=== PATIENT | male | born 1975 | race American Indian/Alaskan Native ===

== ENCOUNTER 2021-07-22 18:29 | Inpatient (IN) | payer SELFPAY ==
[~2021-07-22 18:29] MED LIST: ROCURONIUM 50 MG/5 ML INJ IV ONE
[2021-07-22] MEDS ORDERED: levETIRAcetam 1000 MG/NS 0.75% 1,000 MG/100 ML BAG IV ONE ×3 (18:31→18:48)
[2021-07-22] MEDS ORDERED: ROCURONIUM 50 MG/5 ML INJ IV ONE ×3 (18:42→22:00)
[2021-07-22] MEDS ORDERED: MINERAL OIL/PETROLATUM, WHITE OPHTH OINT 3.5 GM OU PRN (18:46)
[2021-07-22] MEDS ORDERED: fentaNYL 100 MCG/2 ML INJ IV PRN (18:46)
[2021-07-22] MEDS ORDERED: LIP THERAPY VASELINE TP PRN (18:46)
[2021-07-22] MEDS ORDERED: ETOMIDATE 20 MG/10 ML INJ IV ONE (18:46)
[2021-07-22] MEDS ORDERED: LACTATED RINGERS 2,000 ML IV ONE ×2 (18:48→21:30)
--- NOTE | 2021-07-22 18:51 | Emergency Department Report ---
ED General Adult HPI - General Chief complaint: Altered Mental Status Stated complaint: mental status Source: family, EMS (Verbal report received from emergency medical services. EMS documentation not available at time of chart dictation ), RN notes reviewed Mode of arrival: Stretcher Limitations: Altered Mental Status - History of Present Illness Initial comments: The patient is a 46-year-old gentleman. He is not known to myself previously. He is brought to the hospital by emergency medical services. History obtained from EMS verbal report as the patient is altered. EMS reports that they received a phone call for a patient who may have had a seizure. They report th at they found the patient at home on the floor. He had had a convulsive event as per EMS. He does not know how long it lasted for. EMS states that family called 911. EMS states that in the ambulance, the patient had improvement in mental status, was alert and oriented x1, and following commands. They then report that the patient had another seizure or convulsive event, which lasted for a few seconds to possibly a minute, and then resolved. The patient was breathing spontaneously, and given 4 mg of Ativan by EMS in the field. EMS reports another convulsive events in the field, which they believe resolved spontaneously. EMS also reports that the patient had an episode of SVT in the field, which was terminated with 6 mg of adenosine. They also report that the patient's Accu-Chek was "really high." Upon arrival to this emergency room, the patient is altered, breathing sonorously, with eyes looking to the left, and is tachycardic, tachypneic and hypertensive. Given report of multiple seizures without adventist of normal mental status, labored breathing, and copious secretions noted in the oropharynx, decision made to intubate patient. Prior to induction and paralysis, patient got up, try to take off leads and IVs, obviously delirious, agitated, and not exhibiting decision-making capacity. He is moving 4 extremities vigorously prior to paralysis and induction patient intubated with 20 mg of etomidate, and cumulative dose 200 mg rocuronium. Also loaded with 1 g of Keppra as benzodiazepines not available. After intubation, code stroke was called overhead. An emergent noncontrast CT scan of the brain is obtained, and CT angiogram head and neck are obtained, w hich demonstrate no bleed, no large vessel occlusion The bony cervical spine is interpreted as having no acute findings, as per radiologist, Dr. Moody. Contacted neurology on-call, Dr. Jeff Westbrook Discussed history, physical, hyperglycemia, clinical impression, and overall plan of care. The patient is not a TPA candidate as his last known well time is not explicitly known. Given that he was thrashing and moving 4 extremities without convulsive event prior to intubation and paralysis, this is less likely to be a seizure and status epilepticus. This is much more likely to be a toxic metabolic encephalopathy. Laboratory studies demonstrate leukocytosis, uncertain of stress reaction, or infectious pathology. He is also found to have evidence of hyperglycemia, anion gap acidosis, diabetic ketoacidosis, and transaminitis. Contacted nephrology on-call, Dr. Moran. Discussed history, physical, laboratory studies and clinical impression. He will follow in consultation. Advises that emergent hemodialysis is not indicated. Contacted critical care physician on-call, Dr. Susannah Jaeger Discussed history, physical, laboratory studies and imaging studies and overall plan of care. Critical care will follow in consultation. Family arrived to the bedside shortly thereafter. They state the patient drinks alcohol every day, and does not see primary care doctors. He also smokes cigarettes, and occasionally marijuana. Family does not note the patient has any chronic medical conditions. Patient himself is not able to describe qualitative nature of symptoms, exacerbating factors relieving factors or aggravating factors - Related Data Allergies Allergy/AdvReac Type Severity Reaction Status Date / Time No Known Allergies Allergy Unverified 07/22/21 21:01 ED Review of Systems ROS: Stated complaint: SEIZURE Other details as noted in HPI Comment: Unobtainable due to pts medical conditions ED Physical Exam - General Limitations: Altered Mental Status, Physical Limitation General appearance: obtunded - Head Head exam: Present: atraumatic, normocephalic - Eye Eye exam: Present: normal appearance, PERRL - ENT ENT exam: Present: normal exam, mucous membranes moist, normal external ear exam, other (Copious secretions noted in the oropharynx) - Neck Neck exam: Present: normal inspection, full ROM. Absent: tenderness - Respiratory Respiratory exam: Present: respiratory distress, rhonchi - Cardiovascular Cardiovascular Exam: Present: normal rhythm, tachycardia, normal heart sounds. Absent: bradycardia, irregular rhythm, systolic murmur, diastolic murmur, rubs, gallop - GI/Abdominal GI/Abdominal exam: Present: soft. Absent: tenderness, guarding, rebound, rigid, pulsatile mass - Rectal Rectal exam: Present: normal inspection, heme (-) stool - exam: Present: normal inspection External exam: Present: normal external exam - Extremities Exam Extremities exam: Present: normal inspection, full ROM, other (2+ pulses noted in the bilateral upper and lower extremities. There is no palpable cord. negative Homans sign. Muscular compartments are soft. The pelvis is stable.). Absent: pedal edema, calf tenderness - Back Exam Back exam: Present: normal inspection. Absent: tenderness, CVA tenderness (R), CVA tenderness (L), paraspinal tenderness, vertebral tenderness - Neurological Exam Neurological exam: Present: altered, other (Prior to intubation, there is no facial droop, eyes looking to the left, and patient moving 4 extremities vigorously) - Skin Skin exam: Present: warm, dry, intact, normal color. Absent: rash ED Course Vital Signs 07/22/21 07/22/21 07/22/21 18:47 19:00 19:06 Temperature 99.0 F Pulse Rate 152 H 154 H 151 H Respiratory 14 20 Rate Blood Pressure 140/90 Blood Pressure 140/86 140/90 [Left] O2 Sat by Pulse 88 100 100 Oximetry 07/22/21 07/22/21 07/22/21 19:15 19:20 19:55 Temperature Pulse Rate 149 H 148 H 138 H Respiratory 20 20 20 Rate Blood Pressure 140/90 Blood Pressure 123/73 [Left] O2 Sat by Pulse 97 100 100 Oximetry 07/22/21 07/22/21 07/22/21 20:00 20:01 20:15 Temperature Pulse Rate 140 H 141 H 137 H Respiratory 20 20 20 Rate Blood Pressure 163/110 153/99 Blood Pressure 163/110 153/99 [Left] O2 Sat by Pulse 100 100 100 Oximetry 07/22/21 07/22/21 07/22/21 20:30 20:31 20:47 Temperature Pulse Rate 134 H 134 H 132 H Respiratory 20 20 Rate Blood Pressure 153/99 153/99 Blood Pressure 144/108 [Left] O2 Sat by Pulse 99 100 Oximetry 07/22/21 07/22/21 07/22/21 21:01 21:15 21:31 Temperature Pulse Rate 152 H 137 H Respiratory 20 19 Rate Blood Pressure 211/149 160/115 Blood Pressure [Left] O2 Sat by Pulse 100 100 100 Oximetry 07/22/21 07/22/21 07/22/21 21:45 22:01 22:15 Temperature Pulse Rate 150 H 137 H 127 H Respiratory 24 22 27 H Rate Blood Pressure 197/147 200/128 123/77 Blood Pressure [Left] O2 Sat by Pulse 97 98 98 Oximetry 07/22/21 07/22/21 07/22/21 22:31 22:45 23:01 Temperature Pulse Rate 117 H 113 H 111 H Respiratory 26 H 26 H 26 H Rate Blood Pressure 109/75 115/74 122/87 Blood Pressure [Left] O2 Sat by Pulse 99 98 99 Oximetry 07/22/21 23:05 Temperature Pulse Rate 116 H Respiratory Rate Blood Pressure 109/75 Blood Pressure [Left] O2 Sat by Pulse 99 Oximetry - Reevaluation(s) Reevaluation #1: 07/23/21 00:01 Patient markedly improved on propofol, 50 mcg/kg/min. He is also on fentanyl, as well as insulin drip. Has put out approximately 2.5 L of clear yellow urine. Lactic acidosis is a probable type II lactic acidosis, likely secondary to alcoholism, seizure, and stress from diabetic ketoacidosis. Blood pressure now 125/70. Heart rate 99 bpm. - Consultations Consultation #1: 07/22/21 21:16 Dr Westbrook neurology; see note Consultation #2: 07/22/21 21:16 Dr Moran, see note Consultation #3: 07/22/21 21:16 Dr Jaeger, see note - Intubation Time Out Performed: No (Emergency situation) Sedative: Etomidate Mg Given: 20 Paralytic: Rocuronium Mg Given: 200 Laryngoscope: fiberoptic video scope Size: 3 Assist Device Used: LMA ET Tube Size: 7.5 Tube Secured Depth (cm): 23 Tube Secured Location: teeth Tube Placement Confirmation: visualized tube passing t, equal breath sounds bilat, no breath sounds over epi, confirmation by capnometr Patient Tolerated Procedure: well Intubation Complications: none ED Medical Decision Making - Lab Data Result diagrams: 07/22/21 19:18 07/22/21 22:46 Vital Signs 07/22/21 07/22/21 07/22/21 18:47 19:06 19:20 Temperature 99.0 F Pulse Rate 152 H 151 H 150 H Respiratory 14 Rate Blood Pressure 140/90 140/90 Blood Pressure 140/86 [Left] O2 Sat by Pulse 88 100 100 Oximetry 07/22/21 07/22/21 19:55 20:01 Temperature Pulse Rate 138 H 141 H Respiratory 20 20 Rate Blood Pressure 163/110 Blood Pressure [Left] O2 Sat by Pulse 100 100 Oximetry Lab Results 07/22/21 07/22/21 07/22/21 Range/Units 19:18 19:18 19:18 WBC 17.7 H (4.5-11.0) K/mm3 RBC 3.91 (3.65-5.03) M/mm3 Hgb 13.4 (11.8-15.2) gm/dl Hct 45.0 (35.5-45.6) % MCV 115 H (84-94) fl MCH 34 H (28-32) pg MCHC 30 L (32-34) % RDW 15.2 (13.2-15.2) % Plt Count 329 (140-440) K/mm3 Lake % (Auto) 5.6 (0.0-7.3) % Baso # (Auto) 0.2 H (0.0-0.1) K/mm3 Add Manual Diff Complete Total Counted 100 Seg Neutrophils % 78.4 H (40.0-70.0) % Seg Neuts % (Manual) 75.0 H (40.0-70.0) % Band Neutrophils % 4.0 % Lymphocytes % (Manual) 17.0 (13.4-35.0) % Monocytes % (Manual) 3.0 (0.0-7.3) % Eosinophils % (Manual) 1.0 (0.0-4.3) % Nucleated RBC % Not Reportable Seg Neutrophils # Man 13.3 H (1.8-7.7) K/mm3 Band Neutrophils # 0.7 K/mm3 Lymphocytes # (Manual) 3.0 (1.2-5.4) K/mm3 Abs React Lymphs (Man) 0.0 K/mm3 Monocytes # (Manual) 0.5 (0.0-0.8) K/mm3 Eosinophils # (Manual) 0.2 (0.0-0.4) K/mm3 Basophils # (Manual) 0.0 (0.0-0.1) K/mm3 Metamyelocytes # 0.0 K/mm3 Myelocytes # 0.0 K/mm3 Promyelocytes # 0.0 K/mm3 Blast Cells # 0.0 K/mm3 WBC Morphology Not Reportable Hypersegmented Neuts Not Reportable Hyposegmented Neuts Not Reportable Hypogranular Neuts Not Reportable Smudge Cells Not Reportable Toxic Granulation Not Reportable Toxic Vacuolation Not Reportable Dohle Bodies Not Reportable Pelger-Huet Anomaly Not Reportable Jacek Rods Not Reportable Platelet Estimate Consistent w auto Clumped Platelets Not Reportable Plt Clumps, EDTA Not Reportable Large Platelets Not Reportable Giant Platelets Not Reportable Platelet Satelliting Not Reportable Plt Morphology Comment Not Reportable RBC Morphology Not Reportable Dimorphic RBCs Not Reportable Polychromasia Not Reportable Hypochromasia Not Reportable Poikilocytosis Not Reportable Anisocytosis 1+ Microcytosis Not Reportable Macrocytosis 1+ Spherocytes Not Reportable Pappenheimer Bodies Not Reportable Sickle Cells Not Reportable Target Cells Not Reportable Tear Drop Cells Not Reportable Ovalocytes Not Reportable Helmet Cells Not Reportable [place] Bodies Not Reportable Geff Rings Not Reportable [place]andy Cells Not Reportable Bite Cells Not Reportable Crenated Cell Not Reportable Elliptocytes Not Reportable Acanthocytes (Spur) Not Reportable Rouleaux Not Reportable Hemoglobin C Crystals Not Reportable Schistocytes Not Reportable Malaria parasites Not Reportable Dieudonne Bodies Not Reportable Hem Pathologist Commnt No PT 17.4 H (12.2-14.9) Sec. INR 1.29 H (0.87-1.13) APTT 28.3 (24.2-36.6) Sec. Thrombin Time 18.0 (15.1-19.6) Sec. VBG pH (7.320-7.420) Sodium 137 (137-145) mmol/L Potassium 5.6 H (3.6-5.0) mmol/L Chloride 84.9 L (98-107) mmol/L Carbon Dioxide 6 L* (22-30) mmol/L Anion Gap 52 mmol/L BUN 19 (9-20) mg/dL Creatinine 1.9 H (0.8-1.3) mg/dL Estimated GFR 38 ml/min BUN/Creatinine Ratio 10 % Glucose 941 H* (75-100) mg/dL POC Glucose (70-105) mg/dL Calcium 11.6 H (8.4-10.2) mg/dL Total Bilirubin 0.60 (0.1-1.2) mg/dL AST 270 H (5-40) units/L ALT 107 H (7-56) units/L Alkaline Phosphatase 334 H (35-129) units/L Total Creatine Kinase 166 (55-170) units/L CK-MB (CK-2) 3.2 (0.0-4.0) ng/mL CK-MB (CK-2) Rel Index 1.9 (0-4) Troponin T < 0.010 (0.00-0.029) ng/mL Total Protein 10.0 H (6.3-8.2) g/dL Albumin 4.7 (3.9-5) g/dL Albumin/Globulin Ratio 0.9 % Urine Bilirubin (Negative) Urine RBC (Auto) (0.0-6.0) /HPF Salicylates (2.8-20.0) mg/dL Urine Opiates Screen Urine Methadone Screen Acetaminophen (10.0-30.0) ug/mL Ur Barbiturates Screen Ur Phencyclidine Scrn Ur Amphetamines Screen U Benzodiazepines Scrn Urine Cocaine Screen U Marijuana (THC) Screen Drugs of Abuse Note Plasma/Serum Alcohol (0-0.07) % 07/22/21 07/22/21 07/22/21 Range/Units 19:18 19:18 19:18 WBC (4.5-11.0) K/mm3 RBC (3.65-5.03) M/mm3 Hgb (11.8-15.2) gm/dl Hct (35.5-45.6) % MCV (84-94) fl MCH (28-32) pg MCHC (32-34) % RDW (13.2-15.2) % Plt Count (140-440) K/mm3 [place] % (Auto) (0.0-7.3) % Baso # (Auto) (0.0-0.1) K/mm3 Add Manual Diff Total Counted Seg Neutrophils % (40.0-70.0) % Seg Neuts % (Manual) (40.0-70.0) % Band Neutrophils % % Lymphocytes % (Manual) (13.4-35.0) % Monocytes % (Manual) (0.0-7.3) % Eosinophils % (Manual) (0.0-4.3) % Nucleated RBC % Seg Neutrophils # Man (1.8-7.7) K/mm3 Band Neutrophils # K/mm3 Lymphocytes # (Manual) (1.2-5.4) K/mm3 Abs React Lymphs (Man) K/mm3 Monocytes # (Manual) (0.0-0.8) K/mm3 Eosinophils # (Manual) (0.0-0.4) K/mm3 Basophils # (Manual) (0.0-0.1) K/mm3 Metamyelocytes # K/mm3 Myelocytes # K/mm3 Promyelocytes # K/mm3 Blast Cells # K/mm3 WBC Morphology Hypersegmented Neuts Hyposegmented Neuts Hypogranular Neuts Smudge Cells Toxic Granulation Toxic Vacuolation Dohle Bodies Pelger-Huet Anomaly Jacek Rods Platelet Estimate Clumped Platelets Plt Clumps, EDTA Large Platelets Giant Platelets Platelet Satelliting Plt Morphology Comment RBC Morphology Dimorphic RBCs Polychromasia Hypochromasia Poikilocytosis Anisocytosis Microcytosis Macrocytosis Spherocytes Pappenheimer Bodies Sickle Cells Target Cells Tear Drop Cells Ovalocytes Helmet Cells [place] Bodies Geff Rings Yoandy Cells Bite Cells Crenated Cell Elliptocytes Acanthocytes (Spur) Rouleaux Hemoglobin C Crystals Schistocytes Malaria parasites Dieudonne Bodies Hem Pathologist Commnt PT (12.2-14.9) Sec. INR (0.87-1.13) APTT (24.2-36.6) Sec. Thrombin Time (15.1-19.6) Sec. VBG pH (7.320-7.420) Sodium (137-145) mmol/L Potassium (3.6-5.0) mmol/L Chloride (98-107) mmol/L Carbon Dioxide (22-30) mmol/L Anion Gap mmol/L BUN (9-20) mg/dL Creatinine (0.8-1.3) mg/dL Estimated GFR ml/min BUN/Creatinine Ratio % Glucose (75-100) mg/dL POC Glucose (70-105) mg/dL Calcium (8.4-10.2) mg/dL Total Bilirubin (0.1-1.2) mg/dL AST (5-40) units/L ALT (7-56) units/L Alkaline Phosphatase (35-129) units/L Total Creatine Kinase (55-170) units/L CK-MB (CK-2) (0.0-4.0) ng/mL CK-MB (CK-2) Rel Index (0-4) Troponin T (0.00-0.029) ng/mL Total Protein (6.3-8.2) g/dL Albumin (3.9-5) g/dL Albumin/Globulin Ratio % Urine Bilirubin (Negative) Urine RBC (Auto) (0.0-6.0) /HPF Salicylates 0.6 L (2.8-20.0) mg/dL Urine Opiates Screen Urine Methadone Screen Acetaminophen 5.0 L (10.0-30.0) ug/mL Ur Barbiturates Screen Ur Phencyclidine Scrn Ur Amphetamines Screen U Benzodiazepines Scrn Urine Cocaine Screen U Marijuana (THC) Screen Drugs of Abuse Note Plasma/Serum Alcohol < 0.01 (0-0.07) % 07/22/21 07/22/21 07/22/21 Range/Units 19:18 20:01 20:01 WBC (4.5-11.0) K/mm3 RBC (3.65-5.03) M/mm3 Hgb (11.8-15.2) gm/dl Hct (35.5-45.6) % MCV (84-94) fl MCH (28-32) pg MCHC (32-34) % RDW (13.2-15.2) % Plt Count (140-440) K/mm3 [place] % (Auto) (0.0-7.3) % Baso # (Auto) (0.0-0.1) K/mm3 Add Manual Diff Total Counted Seg Neutrophils % (40.0-70.0) % Seg Neuts % (Manual) (40.0-70.0) % Band Neutrophils % % Lymphocytes % (Manual) (13.4-35.0) % Monocytes % (Manual) (0.0-7.3) % Eosinophils % (Manual) (0.0-4.3) % Nucleated RBC % Seg Neutrophils # Man (1.8-7.7) K/mm3 Band Neutrophils # K/mm3 Lymphocytes # (Manual) (1.2-5.4) K/mm3 Abs React Lymphs (Man) K/mm3 Monocytes # (Manual) (0.0-0.8) K/mm3 Eosinophils # (Manual) (0.0-0.4) K/mm3 Basophils # (Manual) (0.0-0.1) K/mm3 Metamyelocytes # K/mm3 Myelocytes # K/mm3 Promyelocytes # K/mm3 Blast Cells # K/mm3 WBC Morphology Hypersegmented Neuts Hyposegmented Neuts Hypogranular Neuts Smudge Cells Toxic Granulation Toxic Vacuolation Dohle Bodies Pelger-Huet Anomaly Jacek Rods Platelet Estimate Clumped Platelets Plt Clumps, EDTA Large Platelets Giant Platelets Platelet Satelliting Plt Morphology Comment RBC Morphology Dimorphic RBCs Polychromasia Hypochromasia Poikilocytosis Anisocytosis Microcytosis Macrocytosis Spherocytes Pappenheimer Bodies Sickle Cells Target Cells Tear Drop Cells Ovalocytes Helmet Cells [place] Bodies Geff Rings Yoandy Cells Bite Cells Crenated Cell Elliptocytes Acanthocytes (Spur) Rouleaux Hemoglobin C Crystals Schistocytes Malaria parasites Dieudonne Bodies Hem Pathologist Commnt PT (12.2-14.9) Sec. INR (0.87-1.13) APTT (24.2-36.6) Sec. Thrombin Time (15.1-19.6) Sec. VBG pH 7.030 L* (7.320-7.420) Sodium (137-145) mmol/L Potassium (3.6-5.0) mmol/L Chloride (98-107) mmol/L Carbon Dioxide (22-30) mmol/L Anion Gap mmol/L BUN (9-20) mg/dL Creatinine (0.8-1.3) mg/dL Estimated GFR ml/min BUN/Creatinine Ratio % Glucose (75-100) mg/dL POC Glucose (70-105) mg/dL Calcium (8.4-10.2) mg/dL Total Bilirubin (0.1-1.2) mg/dL AST (5-40) units/L ALT (7-56) units/L Alkaline Phosphatase (35-129) units/L Total Creatine Kinase (55-170) units/L CK-MB (CK-2) (0.0-4.0) ng/mL CK-MB (CK-2) Rel Index (0-4) Troponin T (0.00-0.029) ng/mL Total Protein (6.3-8.2) g/dL Albumin (3.9-5) g/dL Albumin/Globulin Ratio % Urine Bilirubin Neg (Negative) Urine RBC (Auto) 1.0 (0.0-6.0) /HPF Salicylates (2.8-20.0) mg/dL Urine Opiates Screen Negative Urine Methadone Screen Negative Acetaminophen (10.0-30.0) ug/mL Ur Barbiturates Screen Negative Ur Phencyclidine Scrn Negative Ur Amphetamines Screen Negative U Benzodiazepines Scrn Negative Urine Cocaine Screen Negative U Marijuana (THC) Screen Negative Drugs of Abuse Note Disclamer Plasma/Serum Alcohol (0-0.07) % 07/22/21 Range/Units 20:29 WBC (4.5-11.0) K/mm3 RBC (3.65-5.03) M/mm3 Hgb (11.8-15.2) gm/dl Hct (35.5-45.6) % MCV (84-94) fl MCH (28-32) pg MCHC (32-34) % RDW (13.2-15.2) % Plt Count (140-440) K/mm3 [place] % (Auto) (0.0-7.3) % Baso # (Auto) (0.0-0.1) K/mm3 Add Manual Diff Total Counted Seg Neutrophils % (40.0-70.0) % Seg Neuts % (Manual) (40.0-70.0) % Band Neutrophils % % Lymphocytes % (Manual) (13.4-35.0) % Monocytes % (Manual) (0.0-7.3) % Eosinophils % (Manual) (0.0-4.3) % Nucleated RBC % Seg Neutrophils # Man (1.8-7.7) K/mm3 Band Neutrophils # K/mm3 Lymphocytes # (Manual) (1.2-5.4) K/mm3 Abs React Lymphs (Man) K/mm3 Monocytes # (Manual) (0.0-0.8) K/mm3 Eosinophils # (Manual) (0.0-0.4) K/mm3 Basophils # (Manual) (0.0-0.1) K/mm3 Metamyelocytes # K/mm3 Myelocytes # K/mm3 Promyelocytes # K/mm3 Blast Cells # K/mm3 WBC Morphology Hypersegmented Neuts Hyposegmented Neuts Hypogranular Neuts Smudge Cells Toxic Granulation Toxic Vacuolation Dohle Bodies Pelger-Huet Anomaly Jacek Rods Platelet Estimate Clumped Platelets Plt Clumps, EDTA Large Platelets Giant Platelets Platelet Satelliting Plt Morphology Comment RBC Morphology Dimorphic RBCs Polychromasia Hypochromasia Poikilocytosis Anisocytosis Microcytosis Macrocytosis Spherocytes Pappenheimer Bodies Sickle Cells Target Cells Tear Drop Cells Ovalocytes Helmet Cells [place] Bodies Geff Rings [place] Cells Bite Cells Crenated Cell Elliptocytes Acanthocytes (Spur) Rouleaux Hemoglobin C Crystals Schistocytes Malaria parasites Dieudonne Bodies Hem Pathologist Commnt PT (12.2-14.9) Sec. INR (0.87-1.13) APTT (24.2-36.6) Sec. Thrombin Time (15.1-19.6) Sec. VBG pH (7.320-7.420) Sodium (137-145) mmol/L Potassium (3.6-5.0) mmol/L Chloride (98-107) mmol/L Carbon Dioxide (22-30) mmol/L Anion Gap mmol/L BUN (9-20) mg/dL Creatinine (0.8-1.3) mg/dL Estimated GFR ml/min BUN/Creatinine Ratio % Glucose (75-100) mg/dL POC Glucose > 600 H (70-105) mg/dL Calcium (8.4-10.2) mg/dL Total Bilirubin (0.1-1.2) mg/dL AST (5-40) units/L ALT (7-56) units/L Alkaline Phosphatase (35-129) units/L Total Creatine Kinase (55-170) units/L CK-MB (CK-2) (0.0-4.0) ng/mL CK-MB (CK-2) Rel Index (0-4) Troponin T (0.00-0.029) ng/mL Total Protein (6.3-8.2) g/dL Albumin (3.9-5) g/dL Albumin/Globulin Ratio % Urine Bilirubin (Negative) Urine RBC (Auto) (0.0-6.0) /HPF Salicylates (2.8-20.0) mg/dL Urine Opiates Screen Urine Methadone Screen Acetaminophen (10.0-30.0) ug/mL Ur Barbiturates Screen Ur Phencyclidine Scrn Ur Amphetamines Screen U Benzodiazepines Scrn Urine Cocaine Screen U Marijuana (THC) Screen Drugs of Abuse Note Plasma/Serum Alcohol (0-0.07) % - EKG Data -: EKG Interpreted by Ok EKG shows normal: sinus rhythm Rate: tachycardia - EKG Data 07/22/21 21:15 EKG interpreted at 21: 09 Sinus rhythm, tachycardia, rate 140 bpm. Normal axis, high left ventricular voltage, QTC 437 ms. There is motion artifact. This is an abnormal EKG, this is not a STEMI. - Radiology Data Radiology results: pending, report reviewed, image reviewed ABDOMEN 1 VIEW(S) INDICATION / CLINICAL INFORMATION: s/p ng tube. COMPARISON: None available. Impression: The esophagogastric tube terminates within the stomach. The stomach is moderately distended with gas. Signer Name: Kamaljit Combs MD Signed: 07/22/2021 6:21 PM Workstation Name: [id number] Chest single view INDICATION: Dyspnea IMPRESSION: Endotracheal tube terminates about 5 cm above the luly. The lungs are grossly clear. Signer Name: Kamaljit Combs MD Signed: 07/22/2021 6:21 PM Workstation Name: [id number] CTA head with intravenous contrast CLINICAL HISTORY: stroke sx TECHNIQUE: 0.625 mm thick contiguous axial scans were obtained from the skull base to the skull vertex during rapid bolus administration of intravenous contrast material. Multiplanar reconstructions were produced in the coronal and sagittal planes. In addition 3 plane MIP instructions were produced and reviewed for this report. The axial source images and reconstructed images were reviewed for this report. CONTRAST DOSE REPORT: Omnipaque 350: Under ml administered intravenously. All CT scans at this location are performed using CT dose reduction for ALARA by means of automated exposure control. FINDINGS: Internal carotid arteries:[place], cavernous, opthalmic, clinoid and supraclinoid segments of the ICAs have an unremarkable appearance. Middle cerebral arteries:Normal and symmetrical M1 segments of the middle cerebral arteries are demonstrated. No abnormalities are seen on evaluation of the insular or opercular branches. Anterior cerebral arteries:Bilaterally symmetrical A1 segments are demonstrated. No abnormalities are seen along the course of the A2 segments or their visualized pericallosal branches. An intact anterior communicating artery is demonstrated. Vertebral arteries:Bilaterally symmetrical vertebral arteries are demonstrated. Both vertebral arteries contribute to the basilar artery origin. Basilar artery:Basilar artery has an unremarkable appearance. Posterior cerebral arteries:Bilaterally symmetrical posterior cerebral arteries are identified. Small posterior communicating arteries are demonstrated bilaterally. [place]: Intact. see above. Dural sinuses: Dural venous sinuses are well demonstrated on this exam. There is no evidence of dural sinus thrombosis. IMPRESSION: 1. No indication of large vessel occlusion or intracranial stenosis. Signer Name: Bryan Moody MD Signed: 07/22/2021 7:18 PM Workstation Name: [id number] CTA neck without and with intravenous contrast material CLINICAL HISTORY: stroke sx TECHNIQUE: Following acquisition of a timing bolus 0.625 mm thick contiguous axial scans were obtained from aortic arch to the skull base during rapid bolus intravenous contrast infusion. In addition to evaluation of axial source images multiplanar reconstructions were produced and reviewed for this report. 3 plane MIP reconstructions were produced and reviewed. Contrast dose report: Omnipaque 350: 100 ml, administered intravenously All CT examinations performed at this facility utilize modulated dose reduction, iterative mey nstruction or weight-based dosing, as appropriate, to obtain a radiation dose which is as low as can reasonably be achieved. FINDINGS: Thoracic aorta:No abnormalities are identified along the course of the thoracic aorta..The origins of the great vessels have an unremarkable appearance. Brachiocephalic artery, left common carotid artery origin and left subclavian artery all have an unremarkable appearance. Right carotid artery:No abnormalities are seen along the course of the RCCA, at the right carotid bifurcation or along the cervical portions of the ANT. Left carotid artery: No abnormalities are noted along the course of the left common carotid artery, at the left carotid bifurcation or along the course of the cervical segments of the LICA. Posterior circulation:The vertebral arteries have an unremarkable appearance. Both vertebral arteries contribute to the basilar artery origin. The basilar artery has an unremarkable appearance. The degree of stenosis, if any, is determined utilizing NASCET like criteria. In this case there is no indication of hemodynamically significant stenosis at the carotid bifurcations or elsewhere. Evaluation of the nonvascular soft tissue structures reveal no abnormality. There is no indication of cervical lymphadenopathy. No abnormalities are seen along the course of the airway. Visualized portions of the parotid glands and the submandibular salivary glands have a normal appearance. Thyroid gland has a normal appearance. Evaluation of the lung apices reveals no evidence of lung nodule or infiltrate. Evaluation of the cervical spine revealed no significant abnormalities. Nasoenteric tube is present tip not included on this study. End otracheal tube is present tip located about 5 cm above the level of the luly. IMPRESSION: 1. No indication of hemodynamically significant stenosis at the carotid bifurcations or elsewhere. No evidence of large vessel occlusion. Signer Name: Bryan Moody MD Signed: 07/22/2021 7:14 PM Workstation Name: [id number] CT HEAD WITHOUT CONTRAST INDICATION / CLINICAL INFORMATION: stat ep, ams. TECH NIQUE: All CT scans at this location are performed using CT dose reduction for ALARA by means of automated exposure control. COMPARISON: None available. FINDINGS: HEMORRHAGE: No evidence of intracranial hemorrhage or extra-axial fluid collection. EXTRA-AXIAL SPACES: Cortical sulci, sylvian fissures and basilar cisterns have an unremarkable appearance. VENTRICULAR SYSTEM: The third and lateral ventricles are of normal size and configuration. CEREBRAL PARENCHYMA: No areas of abnormal brain parenchymal attenuation are identified. There is no indication of recent infarction. MIDLINE SHIFT OR HERNIATION: There is no mass effect. CEREBELLUM / BRAINSTEM: Brainstem and cerebellum have an unremarkable appearance. MIDLINE STRUCTURES:No abnormalities of the pituitary gland or pineal region are identified. INTRACRANIAL VESSELS:No abnormalities are identified on this noncontrast head CT. ORBITS: visualized portions of the orbits have an unremarkable appearance. SOFT TISSUES of HEAD: No significant abnormality. CALVARIUM: Evaluation of bone windows reveals no abnormalities. PARANASAL SINUSES / MASTOID AIR CELLS: Visualized portions of the paranasal sinuses are free from inflammatory mucosal disease. Mastoid air cells are normally pneumatized. ADDITIONAL FINDINGS: None. IMPRESSION: 1. No acute intracranial abnormality. Signer Name: Bryan Moody MD Signed: 07/22/2021 7:03 PM Workstation Name: [id number] - Medical Decision Making Differential diagnosis, including but not limited to: Diabetic ketoacidosis, toxic metabolic encephalopathy, pneumonia, urinary tract infection, bacteremia, alcohol withdrawal seizure, status epilepticus Assessment and plan: 46-year-old gentleman, presenting with acute respiratory failure, hyperglycemia, metabolic acidosis, anion gap acidosis, transaminitis, dehydration, and tachycardia, and convulsive event, likely concomitant diabetic ketoacidosis, and alcohol withdrawal seizure. Given that patient moving 4 extremities, this is unlikely to be status epilepticus at this time. Patient intubated for airway protection. He will be started on aggressive IV fluids, insulin drip, DKA protocol. Propofol for postintubation sedation. Leukocytosis appreciated, also found to have 4% bands. Family at the bedside, state patient has no primary care doctor, but that he is an alcoholic, and does not go to physicians. Nephrology, neurology, critical care on board. Patient will require admission to the ICU for medical optimization and stabilization. Hospital physician, Dr Charlene Mendoza to admit to [facility] Critical Care Time: Yes Critical care time in (mins) excluding proc time.: 74 Critical care attestation.: If time is entered above; I have spent that time in minutes in the direct care of this critically ill patient, excluding procedure time. Critical Care Time: Critical care time includes multiple bedside reevaluations, interpretation of laboratory studies, radiology studies, discussion with multiple consulting ser vices, including neurology, critical care, nephrology, hospital medicine. This also includes time spent discussing patient's care with prehospital providers and family. This does not include procedure time. This is a critically ill patient with acute respiratory failure, toxic metabolic encephalopathy, anion gap acidosis, and diabetic ketoacidosis, requiring multiple time sensitive interventions. ED Disposition Clinical Impression: DKA (diabetic ketoacidosis), Transaminitis, Renal insufficiency, Seizures, Alcohol abuse, Acute respiratory failure, Acute encephalopathy, SIRS (systemic inflammatory response syndrome) Disposition: 09 ADMITTED INPATIENT Is pt being admited?: Yes Does the pt Need Aspirin: No Condition: Critical
--- NOTE | 2021-07-22 19:08 | Consultation ---
History of Present Illness - Reason for Consult Consult date: 07/22/21 - History of Present Illness [facility] Consult Note # Demographics Consult Type: Acute Stroke Level 1 (0-4.5 hrs) Patient Location: Emergency Room First Name: Zev Last Name: Milind MARKHAM Date of : 1975 Age: 46 Gender: Male Facility: [facility] Time of Initial Page (Eastern Time): 07/22/2021, 18:46 Time of Return Call (Eastern Time): 07/22/2021, 18:48 # HPI History: 46yo man who was BIBA with complaint of seizures and hyperglycemia. He was confused with EMS arrived. He was intubated in the ED. He was moving all 4 extremities. # Assessment Impression: Altered Mental Status less likely stroke # Plan Thrombolytic/Intervention: NOT IV Thrombolysis or IA Intervention candidate Thrombolytic Exclusion: other (see below) likely not stroke Intraarterial Exclusion: clinically not consistent with stroke Imaging: (urgency: STAT): CT Head without contrast CT Angiogram Head and CT Angiogram Neck AND call back with results if abnormal Diagnostic Test: EEG Other: I have discussed my recommendations with the referring provider Additional Recommendations: -if CTA head and neck is negative, would treat as metabolic issue vs seizure issue -no full stroke evaluation if CTA is negative Medications and Allergies Active Meds: Active Medications Etomidate (Etomidate 20 Mg/10 Ml Inj) 20 mg IV ONCE ONE Stop: 07/22/21 18:47 Famotidine (Famotidine 20 Mg/2 Ml Inj) 20 mg IV BID ROMERO Fentanyl (Fentanyl 100 Mcg/2 Ml Inj) 50 mcg IV Q10MIN PRN PRN Reason: ANALGESIA Hydrophilic Ointment (Lip Therapy Vaseline) 1 applic TP Q2HR PRN PRN Reason: Dry Lips Propofol (Diprivan 10 Mg/Ml) 1,000 mg in 100 mls @ 0 mls/hr IV TITR ROMERO; Protocol Fentanyl Citrate (Fentanyl Drip Premix) 2,000 mcg in 100 mls @ 0 mls/hr IV TITR ROMERO; Protocol Levetiracetam (Keppra 1,000 Mg/Ns 0.75% 100ml) 1,000 mg in 100 mls @ 400 mls/hr IV ONCE ONE Stop: 07/22/21 19:00 Levetiracetam (Keppra 1,000 Mg/Ns 0.75% 100ml) 1,000 mg in 100 mls @ 400 mls/hr IV ONCE ONE Stop: 07/22/21 19:02 Lactated Ringer's (Lactated Ringers) 2,000 mls @ 999 mls/hr IV BOLUS ONE Stop: 07/22/21 20:48 Multi-Ingred Cream/Lotion/Oil/Oint (Mineral Oil/Petrolatum, White Ophth Oint 3.5 Gm) 1 applic OU Q4HR PRN PRN Reason: Dry Eye(s) Rocuronium [place] (Rocuronium 50 Mg/5 Ml Inj) 100 mg IV ONCE ONE Stop: 07/22/21 18:47 Rocuronium [place] (Rocuronium 50 Mg/5 Ml Inj) 100 mg IV ONCE ONE Stop: 07/22/21 18:49 Senna/Docusate Sodium (Sennosides/Docusate Sodium 8.6/50 Mg Tab) 1 tab FEEDTUBE BID ROMERO
--- NOTE | 2021-07-22 19:25 | XRay Report ---
ABDOMEN 1 VIEW(S) INDICATION / CLINICAL INFORMATION: s/p ng tube. COMPARISON: None available. Impression: The esophagogastric tube terminates within the stomach. The stomach is moderately distend ed with gas. Signer Name: Kamaljit Combs MD Signed: 07/22/2021 7:21 PM Workstation Name: [id number]
--- NOTE | 2021-07-22 19:25 | XRay Report ---
Chest single view INDICATION: Dyspnea IMPRESSION: Endotracheal tube terminates about 5 cm above the luly. The lungs are grossly clear. Signer Name: Kamaljit Combs MD Signed: 07/22/2021 7:21 PM Workstation Name: [id number]
[2021-07-22 19:42] LABS: Basophils # (Auto) 0.2 K/mm3 (0.0-0.1); Mean Corpuscular HGB Conc 30 % (32-34); Monocytes % (Auto) 5.6 % (0.0-7.3); Platelet Count 329 K/mm3 (140-440); Red Blood Count 3.91 M/mm3 (3.65-5.03); Red Cell Distribution Width 15.2 % (13.2-15.2)
[2021-07-22 19:43] LABS: Hemoglobin 13.4 gm/dl (11.8-15.2); Mean Corpuscular Volume 115 fl (84-94)
[2021-07-22 19:50] LABS: INR 1.29 (0.87-1.13); Partial Thromboplastin Time 28.3 Sec. (24.2-36.6)
[2021-07-22 20:06] LABS: Alanine Aminotransferase 107 units/L (7-56); Albumin 4.7 g/dL (3.9-5); BUN/Creatinine Ratio 10; Blood Urea Nitrogen 19 mg/dL (9-20); Calcium 11.6 mg/dL (8.4-10.2); Creatine Kinase MB 3.2 ng/mL (0.0-4.0); Hemolysis Index 6
--- NOTE | 2021-07-22 20:08 | Cat Scan Report ---
CT HEAD WITHOUT CONTRAST INDICATION / CLINICAL INFORMATION: stat ep, ams. TECHNIQUE: All CT scans at this location are performed using CT dose reduction for ALARA by means of automated e xposure control. COMPARISON: None available. FINDINGS: HEMORRHAGE: No evidence of intracranial hemorrhage or extra-axial fluid collection. EXTRA-AXIAL SPACES: Cortical sulci, sylvian fissures and basilar cisterns have an unremarkable appear ance. VENTRICULAR SYSTEM: The third and lateral ventricles are of normal size and configuration. CEREBRAL PARENCHYMA: No areas of abnormal brain parenchymal attenuation are identified. There is no i ndication of recent infarction. MIDLINE SHIFT OR HERNIATION: There is no mass effect. CEREBELLUM / BRAINSTEM: Brainstem and cerebellum have an unremarkable appearance. MIDLINE STRUCTURES:No abnormalities of the pituitary gland or pineal region are identified. INTRACRANIAL VESSELS:No abnormalities are identified on this noncontrast head CT. ORBITS: visualized portions of the orbits have an unremarkable appearance. SOFT TISSUES of HEAD: No significant abnormality. CALVARIUM: Evaluation of bone windows reveals no abnormalities. PARANASAL SINUSES / MASTOID AIR CELLS: Visualized portions of the paranasal sinuses are free from inf lammatory mucosal disease. Mastoid air cells are normally pneumatized. ADDITIONAL FINDINGS: None. IMPRESSION: 1. No acute intracranial abnormality. Signer Name: Bryan Moody MD Signed: 07/22/2021 8:03 PM Workstation Name: [id number]
[2021-07-22 20:09] LABS: Anisocytosis 1+; Band Neutrophils # (Manual) 0.7 K/mm3; Macrocytosis 1+; Total Cells Counted 100
[2021-07-22 20:10] LABS: Platelet Estimate Consistent w Auto
[2021-07-22] MEDS ORDERED: DEXTROSE 50% IN WATER (25GM) 50 ML SYRINGE IV PRN (20:12)
[2021-07-22] MEDS ORDERED: INSULIN REGULAR, HUMAN 100 UNITS/1 ML IV ONE (20:12)
--- NOTE | 2021-07-22 20:18 | Cat Scan Report ---
CTA neck without and with intravenous contrast material CLINICAL HISTORY: stroke sx TECHNIQUE: Following acquisition of a timing bolus 0.625 mm thick contiguous axial scans were obtained from aort ic arch to the skull base during rapid bolus intravenous contrast infusion. In addition to evaluation of axial source images multiplanar reconstructions were produced and reviewed for this report. 3 chadd ne MIP reconstructions were produced and reviewed. Contrast dose report: Omnipaque 350: 100 ml, administered intravenously All CT examinations performed at this facility utilize modulated dose reduction, iterative reconstruc tion or weight-based dosing, as appropriate, to obtain a radiation dose which is as low as can reason ably be achieved. FINDINGS: Thoracic aorta:No abnormalities are identified along the course of the thoracic aorta..The origins of the great vessels have an unremarkable appearance. Brachiocephalic artery, left common carotid arter y origin and left subclavian artery all have an unremarkable appearance. Right carotid artery:No abnormalities are seen along the course of the RCCA, at the right carotid bif urcation or along the cervical portions of the ANT. Left carotid artery: No abnormalities are noted along the course of the left common carotid artery, a t the left carotid bifurcation or along the course of the cervical segments of the LICA. Posterior circulation:The vertebral arteries have an unremarkable appearance. Both vertebral arteries contribute to the basilar artery origin. The basilar artery has an unremarkable appearance. The degree of stenosis, if any, is determined utilizing NASCET like criteria. In this case there is no indication of hemodynamically significant stenosis at the carotid bifurcations or elsewhere. Evaluation of the nonvascular soft tissue structures reveal no abnormality. There is no indication of cervical lymphadenopathy. No abnormalities are seen along the course of the airway. Visualized porti ons of the parotid glands and the submandibular salivary glands have a normal appearance. Thyroid gla nd has a normal appearance. Evaluation of the lung apices reveals no evidence of lung nodule or infil trate. Evaluation of the cervical spine revealed no significant abnormalities. Nasoenteric tube is present tip not included on this study. Endotracheal tube is present tip located about 5 cm above the level of the luly. IMPRESSION: 1. No indication of hemodynamically significant stenosis at the carotid bifurcations or elsewhere. No evidence of large vessel occlusion. Signer Name: Bryan Moody MD Signed: 07/22/2021 8:14 PM Workstation Name: [id number]
--- NOTE | 2021-07-22 20:22 | Cat Scan Report ---
CTA head with intravenous contrast CLINICAL HISTORY: stroke sx TECHNIQUE: 0.625 mm thick contiguous axial scans were obtained from the skull base to the skull vertex during r apid bolus administration of intravenous contrast material. Multiplanar reconstructions were produced in the coronal and sagittal planes. In addition 3 plane MIP instructions were produced and reviewed for this report. The axial source images and reconstructed images were reviewed for this report. CONTRAST DOSE REPORT: Omnipaque 350: Under ml administered intravenously. All CT scans at this location are performed using CT dose reduction for ALARA by means of automated e xposure control. FINDINGS: Internal carotid arteries:Noni, cavernous, opthalmic, clinoid and supraclinoid segments of the ICAs have an unremarkable appearance. Middle cerebral arteries:Normal and symmetrical M1 segments of the middle cerebral arteries are demon strated. No abnormalities are seen on evaluation of the insular or opercular branches. Anterior cerebral arteries:Bilaterally symmetrical A1 segments are demonstrated. No abnormalities are seen along the course of the A2 segments or their visualized pericallosal branches. An intact anteri or communicating artery is demonstrated. Vertebral arteries:Bilaterally symmetrical vertebral arteries are demonstrated. Both vertebral arteri es contribute to the basilar artery origin. Basilar artery:Basilar artery has an unremarkable appearance. Posterior cerebral arteries:Bilaterally symmetrical posterior cerebral arteries are identified. Smal l posterior communicating arteries are demonstrated bilaterally. [place]: Intact. see above. Dural sinuses: Dural venous sinuses are well demonstrated on this exam. There is no evidence of dural sinus thrombosis. IMPRESSION: 1. No indication of large vessel occlusion or intracranial stenosis. Signer Name: Bryan Moody MD Signed: 07/22/2021 8:18 PM Workstation Name: [id number]
[2021-07-22 20:36] LABS: Bacteria,Urine 1+ /HPF (Negative); Bilirubin,Urine NEG (Negative); Blood,Urine MOD (Negative); Color,Urine Straw (Yellow); Mucus,Urine FEW /HPF; Urobilinogen,Urine < 2.0 mg/dL (<2.0)
[2021-07-22 20:39] LABS: Amphetamine Screen,Urine Negative
[2021-07-22 20:52] LABS: Benzodiazepines Screen,Urine Negative; Cannabinoid Screen,Urine Negative; Cocaine Screen,Urine Negative; Methadone Screen,Urine Negative; Opiate Screen,Urine Negative
[2021-07-22] MEDS ORDERED: cefTRIAXone/NS 2 GM/100 ML 2 GM/100 ML BAG IV ONE (21:03)
[2021-07-22] MEDS: fentaNYL DRIP Premix 2,000 MCG/100 ML BAG IV SCH (21:54)
[2021-07-22] MEDS ORDERED: MORPHINE 4 MG/1 ML INJ IV PRN (21:57)
[2021-07-22] MEDS ORDERED: MORPHINE 2 MG/1 ML INJ IV PRN (21:57)
[2021-07-22] MEDS ORDERED: MAGNESIUM HYDROXIDE (MOM) ORAL LIQD UDC PO PRN (21:57)
[2021-07-22] MEDS ORDERED: ACETAMINOPHEN 650 MG RECT SUPP PR PRN (21:57)
[2021-07-22] MEDS ORDERED: THIAMINE 100 MG, FOLIC ACID 1 MG, MULTIPLE VITAMIN INJ, ADULT 10 ML in SODIUM CHLORIDE ... IV ONE (22:00)
[2021-07-22] MEDS ORDERED: SODIUM CHLORIDE 0.9% 1000 ML 1,000 ML IV SCH (22:00)
[2021-07-22] MEDS: INSULIN REGULAR, HUMAN 100 UNITS in SODIUM CHLORIDE 0.9% 99 ML IV SCH (22:09)
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
[2021-07-22 23:23] LABS: BUN/Creatinine Ratio 13; Blood Urea Nitrogen 19 mg/dL (9-20); Calcium 10.6 mg/dL (8.4-10.2); Hemolysis Index 17
[2021-07-23 00:50] LABS: BUN/Creatinine Ratio 12; Blood Urea Nitrogen 18 mg/dL (9-20); Calcium 10.8 mg/dL (8.4-10.2); Hemolysis Index 9
[2021-07-23] MEDS: D5W/0.45% NACL/KCL 20 MEQ 20 MEQ/1,000 ML BAG IV SCH ×2 (02:28→19:40)
[2021-07-23] MEDS: SENNOSIDES/DOCUSATE SODIUM 8.6/50 MG TAB FEEDTUBE SCH ×3 (03:00→21:11)
[2021-07-23] MEDS: FAMOTIDINE 20 MG/2 ML INJ IV SCH ×3 (03:00→21:10)
[2021-07-23] MEDS: fentaNYL DRIP Premix 2,000 MCG/100 ML BAG IV SCH ×3 (03:09→21:49)
--- NOTE | 2021-07-23 03:47 | XRay Report ---
CHEST 1 VIEW 07/23/2021 2:34 AM INDICATION / CLINICAL INFORMATION: Follow-up respiratory failure. COMPARISON: Yesterday. FINDINGS: SUPPORT DEVICES: The position of the endotracheal tube has not changed. There is a nasogastric tube c oursing into the stomach with the tip not seen. HEART / MEDIASTINUM: No significant abnormality. LUNGS / PLEURA: No significant pulmonary or pleural abnormality. No pneumothorax. ADDITIONAL FINDINGS: Gaseous distention of the stomach has resolved. IMPRESSION: 1. No acute findings. 2. Interval resolution of gaseous distention of the stomach following NG tube placement. Signer Name: Roger Estevez MD Signed: 07/23/2021 3:43 AM Workstation Name: [id number]
[2021-07-23] MEDS: HEPARIN 5,000 UNIT/1 ML VIAL SUB-Q SCH ×3 (05:03→21:10)
[2021-07-23] MEDS ORDERED: LORazepam 2 MG/ML VIAL IV PRN ×2 (05:10)
[2021-07-23] MEDS: LORazepam 2 MG/ML VIAL IV PRN (05:17)
[2021-07-23 05:29] LABS: BUN/Creatinine Ratio 13; Blood Urea Nitrogen 16 mg/dL (9-20); Hemolysis Index 9
[2021-07-23] MEDS: POTASSIUM CHLORIDE 10 MEQ 10 MEQ/100 ML BAG IV SCH ×10 (07:00→21:23)
[2021-07-23] MEDS: cefTRIAXone/NS 1 GM/50 ML 1 GM/50 ML BAG IV SCH (09:50)
[2021-07-23] MEDS: levETIRAcetam 500 MG in DEXTROSE 5% IN WATER 100 ML IV SCH ×2 (10:03→21:10)
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
[2021-07-23 11:20] LABS: BUN/Creatinine Ratio 13; Blood Urea Nitrogen 16 mg/dL (9-20); Calcium 9.2 mg/dL (8.4-10.2); Hemolysis Index 9
--- NOTE | 2021-07-23 11:53 | Progress Note ---
Assessment and Plan Assessment and plan: This is a 46-year-old AA male with a history of daily ETOH abuse presented with multiple seizures. Patient was also found to be in DKA with acute encephalopaty and copious amount of oral secretions, patient was intubated in the ED for airway protection Hospital course to Date: 07/23/21- Patient remains intubated and sedate, RASS -4. Remains on DKA protocol, plan to transition to SubQ insulin once gap is closed. Renal function is improving and electrolytes were repleted. Will continue cont. IVF and monitor and replaced eletrolytes as needed. Serial BMP, phosp, and mag ordered. Assessment and Plan #Acute Metabolic Encephalopathy #Seizure #ETOH abuse - Probably due to ETOH abuse - CT head with no acute intracranial abnormalities - EEG pending - Neurology consulted, appreciate recommendations - Patient is intubated and sedated RASS-4 - Titrate sedation for a RASS goal of 0 to -1 - Continue Keppra - Monitor for DTS - Plan is for possible SAT and SBT in the am - Might need Precedex gtt during SAT and SBT - PRN analgesia for CPOT greater than 3 - Maintenance of sleep-wake cycle, avoid delirium #Supraventricular Tachycardia (SVT) - SVT in the ED- S/p adenosine - SR on the monitor this am - Normotensive - Maintain adequate perfusion - Continue rehydration with cont. IVF per DKA protocol - Continue blood pressure monitor per protocol - Maintain MAP above 65 - Continue AC- Hep SubQ and SCDs for VTE proph #Acute Respiratory Failure - Intubated on 07/22 for airway protection - CXR with no acute findings - Vent Settin%,6,26,500 - AM ABG noted - CCM consulted, appreciate recommendations - VAP bundle addressed - Aspiration precaution HOB above 30 - Plan for SBT and SAT trials in the am - Daily ABG and CXR - Continue SPO2 monitoring for SPO2 goal above 92% #GI:Transaminitis #Gastric Bubble - Elevated LFTs probably due to ETOH abuse - continue to trend LFTs - Keep patient NPO while on DKA protocol - OG/NG tube to LIS - Continue PPI- Pepcid - Continue BR #Acute K[place]y Injury most likely ATN #Hypokalemia #Hypophosphatemia - Probably due to acidosis - Baseline unknown, SCr. as high as 1.9 - Scr. downtrending, 1.2 this am - Renal US and urine lytes pending - Nephrology on consult, appreciated recommendation - Electrolytes repleted - Serial BMP, mag, and phosp ordered - Strict intake and output - Avoid nephrotoxic medications; Renally dose medications - Continue IVF for now - Monitor and replace electrolytes as needed #SIRS (systemic inflammatory response syndrome) #Leukocytosis #Lactic Acidosis - probably reactive due to DKA, patient has no obvious source of infection - WBCs as high 17.7 - Lactic as high as 10.30-->4.10 this am - Patient remains afebrile - B.Culture and sputum culture pending - Continue empiric ABx X1 day - Continue to F/U on B.cult - Daily CBC monitor - Trend Lactic acid - Consider ID consult if febrile or/and if leukocytosis persist #Endo:Diabetic Ketoacidosis(DKA) - A1c is 9.6 - Continue DKA protocol still gap is closed - Continue Cont. IVF - While critically ill target blood glucose of 140-180 The high probability of a clinically significant, sudden or life threatening deterioration of the [multiple] system(s) required my full and direct attention, intervention and personal management. The aggregate critical care time was [60] minutes. This time is in addition to time spent performing reported procedures but includes the following: [x] Data Review and interpretation [x] Patient assessment and monitoring of vital signs [x] Documentation [x] Medication orders and management Disposition Plan: ICU Total Time Spent with Patient (Minutes): 60 History Interval history: Patient seen and examined at the bedside. Remains intubated and sedated, RASS - 4. On the DKA protocol. BONIFACIO overnight Hospitalist Physical - Constitutional Vitals: Temp Pulse Resp BP Pulse Ox 98.4 F 78 26 H 115/76 100 07/23/21 07:35 07/23/21 11:35 07/23/21 11:30 07/23/21 11:30 07/23/21 11:30 General appearance: Present: no acute distress, well-nourished, other (Intubated and Sedated) - EENT Eyes: Present: PERRL - Respiratory Respiratory effort: normal Respiratory: bilateral: CTA - Cardiovascular Rhythm: regular Heart Sounds: Present: S1 & S2 - Extremities Extremities: no ischemia, pulses intact, pulses symmetrical Peripheral Pulses: within normal limits - Abdominal General gastrointestinal: soft, non-tender, normal bowel sounds - Integumentary Integumentary: Present: clear, warm, dry - Psychiatric Psychiatric: other (Intubated and Sedated) - Neurologic Neurologic: other (Intubated and Sedated) - Allied Health Allied health notes reviewed: nursing HEART Score - HEART Score Troponin: Troponin T < 0.010 ng/mL (0.00-0.029) 07/22/21 19:18 Results - Labs CBC & Chem 7: 07/22/21 19:18 07/23/21 15:47 Labs: Laboratory Last Values WBC 17.7 K/mm3 (4.5-11.0) H 07/22/21 19:18 RBC 3.91 M/mm3 (3.65-5.03) 07/22/21 19:18 Hgb 13.4 gm/dl (11.8-15.2) 07/22/21 19:18 Hct 45.0 % (35.5-45.6) 07/22/21 19:18 MCV 115 fl (84-94) H 07/22/21 19:18 MCH 34 pg (28-32) H 07/22/21 19:18 MCHC 30 % (32-34) L 07/22/21 19:18 RDW 15.2 % (13.2-15.2) 07/22/21 19:18 Plt Count 329 K/mm3 (140-440) 07/22/21 19:18 Wolfe % (Auto) 5.6 % (0.0-7.3) 07/22/21 19:18 Baso # (Auto) 0.2 K/mm3 (0.0-0.1) H 07/22/21 19:18 Add Manual Diff Complete 07/22/21 19:18 Total Counted 100 07/22/21 19:18 Seg Neutrophils % 78.4 % (40.0-70.0) H 07/22/21 19:18 Seg Neuts % (Manual) 75.0 % (40.0-70.0) H 07/22/21 19:18 Band Neutrophils % 4.0 % 07/22/21 19:18 Lymphocytes % (Manual) 17.0 % (13.4-35.0) 07/22/21 19:18 Monocytes % (Manual) 3.0 % (0.0-7.3) 07/22/21 19:18 Eosinophils % (Manual) 1.0 % (0.0-4.3) 07/22/21 19:18 Nucleated RBC % Not Reportable 07/22/21 19:18 Seg Neutrophils # Man 13.3 K/mm3 (1.8-7.7) H 07/22/21 19:18 Band Neutrophils # 0.7 K/mm3 07/22/21 19:18 Lymphocytes # (Manual) 3.0 K/mm3 (1.2-5.4) 07/22/21 19:18 Abs React Lymphs (Man) 0.0 K/mm3 07/22/21 19:18 Monocytes # (Manual) 0.5 K/mm3 (0.0-0.8) 07/22/21 19:18 Eosinophils # (Manual) 0.2 K/mm3 (0.0-0.4) 07/22/21 19:18 Basophils # (Manual) 0.0 K/mm3 (0.0-0.1) 07/22/21 19:18 Metamyelocytes # 0.0 K/mm3 07/22/21 19:18 Myelocytes # 0.0 K/mm3 07/22/21 19:18 Promyelocytes # 0.0 K/mm3 07/22/21 19:18 Blast Cells # 0.0 K/mm3 07/22/21 19:18 WBC Morphology Not Reportable 07/22/21 19:18 Hypersegmented Neuts Not Reportable 07/22/21 19:18 Hyposegmented Neuts Not Reportable 07/22/21 19:18 Hypogranular Neuts Not Reportable 07/22/21 19:18 Smudge Cells Not Reportable 07/22/21 19:18 Toxic Granulation Not Reportable 07/22/21 19:18 Toxic Vacuolation Not Reportable 07/22/21 19:18 Dohle Bodies Not Reportable 07/22/21 19:18 Pelger-Huet Anomaly Not Reportable 07/22/21 19:18 Jacek Rods Not Reportable 07/22/21 19:18 Platelet Estimate Consistent w auto 07/22/21 19:18 Clumped Platelets Not Reportable 07/22/21 19:18 Plt Clumps, EDTA Not Reportable 07/22/21 19:18 Large Platelets Not Reportable 07/22/21 19:18 Giant Platelets Not Reportable 07/22/21 19:18 Platelet Satelliting Not Reportable 07/22/21 19:18 Plt Morphology Comment Not Reportable 07/22/21 19:18 RBC Morphology Not Reportable 07/22/21 19:18 Dimorphic RBCs Not Reportable 07/22/21 19:18 Polychromasia Not Reportable 07/22/21 19:18 Hypochromasia Not Reportable 07/22/21 19:18 Poikilocytosis Not Reportable 07/22/21 19:18 Anisocytosis 1+ 07/22/21 19:18 Microcytosis Not Reportable 07/22/21 19:18 Macrocytosis 1+ 07/22/21 19:18 Spherocytes Not Reportable 07/22/21 19:18 Pappenheimer Bodies Not Reportable 07/22/21 19:18 Sickle Cells Not Reportable 07/22/21 19:18 Target Cells Not Reportable 07/22/21 19:18 Tear Drop Cells Not Reportable 07/22/21 19:18 Ovalocytes Not Reportable 07/22/21 19:18 Helmet Cells Not Reportable 07/22/21 19:18 Vega-Chical Bodies Not Reportable 07/22/21 19:18 [place] Rings Not Reportable 07/22/21 19:18 [place] Cells Not Reportable 07/22/21 19:18 Bite Cells Not Reportable 07/22/21 19:18 Crenated Cell Not Reportable 07/22/21 19:18 Elliptocytes Not Reportable 07/22/21 19:18 Acanthocytes (Spur) Not Reportable 07/22/21 19:18 Rouleaux Not Reportable 07/22/21 19:18 Hemoglobin C Crystals Not Reportable 07/22/21 19:18 Schistocytes Not Reportable 07/22/21 19:18 Malaria parasites Not Reportable 07/22/21 19:18 Dieudonne Bodies Not Reportable 07/22/21 19:18 Hem Pathologist Commnt No 07/22/21 19:18 PT 17.4 Sec. (12.2-14.9) H 07/22/21 19:18 INR 1.29 (0.87-1.13) H 07/22/21 19:18 APTT 28.3 Sec. (24.2-36.6) 07/22/21 19:18 Thrombin Time 18.0 Sec. (15.1-19.6) 07/22/21 19:18 ABG pH 7.242 (7.320-7.450) L 07/22/21 21:09 POC ABG pCO2 44.7 mmHg (32.0-48.0) 07/22/21 21:09 POC ABG pO2 189.2 mmHg (83-108) H 07/22/21 21:09 POC ABG HCO3 18.8 07/22/21 21:09 ABG O2 Saturation 99.2 (0-100) 07/22/21 21:09 POC ABG Base Excess -8.3 07/22/21 21:09 ABG Hemoglobin 14.0 (12.0-17.5) 07/22/21 21:09 ABG Oxyhemoglobin 98.7 (94-98) H 07/22/21 21:09 ABG Methemoglobin 0.2 (0.0-1.5) 07/22/21 21:09 ABG Sodium 141.6 mmol/L (136.0-145.0) 07/22/21 21:09 ABG Potassium 4.6 mmol/L (3.40-4.50) H 07/22/21 21:09 ABG Chloride 97.0 mmol/L (98-107) L 07/22/21 21:09 VBG pH 7.030 (7.320-7.420) L* 07/22/21 19:18 Carboxyhemoglobin 0.3 (0.5-1.5) L 07/22/21 21:09 FiO2 % 100.0 07/22/21 21:09 Sodium 147 mmol/L (137-145) H 07/23/21 10:32 Potassium 3.0 mmol/L (3.6-5.0) L 07/23/21 10:32 Chloride 110.0 mmol/L (98-107) H 07/23/21 10:32 Carbon Dioxide 20 mmol/L (22-30) L 07/23/21 10:32 Anion Gap 20 mmol/L 07/23/21 10:32 BUN 16 mg/dL (9-20) 07/23/21 10:32 Creatinine 1.2 mg/dL (0.8-1.3) 07/23/21 10:32 Estimated GFR > 60 ml/min 07/23/21 10:32 BUN/Creatinine Ratio 13 % 07/23/21 10:32 Glucose 145 mg/dL (75-100) H 07/23/21 10:32 POC Glucose 124 mg/dL (70-105) H 07/23/21 11:32 Hemoglobin A1c 9.8 % (4-6) H 07/22/21 22:46 Lactic Acid 4.10 mmol/L (0.7-2.0) H* 07/23/21 10:32 Calcium 9.2 mg/dL (8.4-10.2) 07/23/21 10:32 Phosphorus 0.90 mg/dL (2.5-4.5) L* D 07/23/21 10:32 Magnesium 1.90 mg/dL (1.7-2.3) 07/23/21 10:32 Total Bilirubin 0.60 mg/dL (0.1-1.2) 07/22/21 19:18 AST 270 units/L (5-40) H 07/22/21 19:18 ALT 107 units/L (7-56) H 07/22/21 19:18 Alkaline Phosphatase 334 units/L (35-129) H 07/22/21 19:18 Total Creatine Kinase 166 units/L (55-170) 07/22/21 19:18 CK-MB (CK-2) 3.2 ng/mL (0.0-4.0) 07/22/21 19:18 CK-MB (CK-2) Rel Index 1.9 (0-4) 07/22/21 19:18 Troponin T < 0.010 ng/mL (0.00-0.029) 07/22/21 19:18 Total Protein 10.0 g/dL (6.3-8.2) H 07/22/21 19:18 Albumin 4.7 g/dL (3.9-5) 07/22/21 19:18 Albumin/Globulin Ratio 0.9 % 07/22/21 19:18 Arterial Blood Ionized Calcium 5.6 mg/dL (4.6-5.3) H 07/22/21 21:09 Urine Color Straw (Yellow) 07/22/21 20:01 Urine Turbidity Clear (Clear) 07/22/21 20:01 Urine pH 6.0 (5.0-7.0) 07/22/21 20:01 Ur Specific [place] 1.033 (1.003-1.030) H 07/22/21 20:01 Urine Protein 100 mg/dl mg/dL (Negative) 07/22/21 20:01 Urine Glucose (UA) >=500 mg/dL (Negative) 07/22/21 20:01 Urine Ketones Neg mg/dL (Negative) 07/22/21 20:01 Urine Blood Mod (Negative) 07/22/21 20:01 Urine Nitrite Neg (Negative) 07/22/21 20:01 Urine Bilirubin Neg (Negative) 07/22/21 20:01 Urine Urobilinogen < 2.0 mg/dL (<2.0) 07/22/21 20:01 Ur Leukocyte Esterase Neg (Negative) 07/22/21 20:01 Urine WBC (Auto) 2.0 /HPF (0.0-6.0) 07/22/21 20:01 Urine RBC (Auto) 1.0 /HPF (0.0-6.0) 07/22/21 20:01 Urine Bacteria (Auto) 1+ /HPF (Negative) 07/22/21 20:01 Urine Mucus Few /HPF 07/22/21 20:01 Salicylates 0.6 mg/dL (2.8-20.0) L 07/22/21 19:18 Urine Opiates Screen Negative 07/22/21 20:01 Urine Methadone Screen Negative 07/22/21 20:01 Acetaminophen 5.0 ug/mL (10.0-30.0) L 07/22/21 19:18 Ur Barbiturates Screen Negative 07/22/21 20:01 Ur Phencyclidine Scrn Negative 07/22/21 20:01 Ur Amphetamines Screen Negative 07/22/21 20:01 U Benzodiazepines Scrn Negative 07/22/21 20:01 Urine Cocaine Screen Negative 07/22/21 20:01 U Marijuana (THC) Screen Negative 07/22/21 20:01 Drugs of Abuse Note Disclamer 07/22/21 20:01 Plasma/Serum Alcohol < 0.01 % (0-0.07) 07/22/21 19:18 Microbiology: Microbiology 07/22/21 21:29 Peripheral/Venous Blood Culture - Preliminary Culture in Progress 07/22/21 21:50 Peripheral/Venous Blood Culture - Preliminary Culture in Progress Corley/IV: Voiding Method Indwelling Catheter Active Medications - Current Medications Current Medications: Generic Name Dose Route Start Last Admin Trade Name Freq PRN Reason Stop Dose Admin Acetaminophen 650 mg 07/22/21 21:57 Acetaminophen 650 Mg Rect Supp NV Q6H PRN Pain MILD(1-3)/Fever >100.5/BERNAL Dextrose 0 ml 07/22/21 20:12 Dextrose 50% In Water (25gm) 50 Ml Syringe IV Q30MIN PRN Hypoglycemia Protocol Famotidine 20 mg 07/22/21 22:00 07/23/21 09:52 Famotidine 20 Mg/2 Ml Inj IV 20 mg BID ROMERO Administration Fentanyl 50 mcg 07/22/21 18:46 Fentanyl 100 Mcg/2 Ml Inj IV Q10MIN PRN ANALGESIA Heparin Sodium (Porcine) 5,000 unit 07/23/21 06:00 07/23/21 05:03 Heparin 5,000 Unit/1 Ml Vial SUB-Q 5,000 unit Q8HR ROMERO Administration Hydrophilic Ointment 1 applic 07/22/21 18:46 Lip Therapy Vaseline TP Q2HR PRN Dry Lips Propofol 1,000 mg in 100 mls @ 2.418 mls/hr 07/22/21 22:00 07/23/21 08:22 Diprivan 10 Mg/Ml IV 45 mcg/kg/min TITR ROMERO 21.762 mls/hr Administration Protocol 5 MCG/KG/MIN Fentanyl Citrate 2,000 mcg in 100 mls @ 4.03 mls/hr 07/22/21 22:00 07/23/21 03:09 Fentanyl Drip Premix IV 3 mcg/kg/hr TITR ROMERO 12.09 mls/hr Administration Protocol 1 MCG/KG/HR Insulin Human Regular 100 100 mls @ 1 mls/hr 07/22/21 22:00 07/23/21 09:35 units/ Sodium Chloride IV 2 units/hr TITR ROMERO 2 mls/hr Titration Protocol 1 UNITS/HR Potassium Chloride/Dextrose/Sod Cl 20 meq in 1,000 mls @ 125 mls/hr 07/22/21 22:00 07/23/21 02:28 D5w/0.45% Nacl/Kcl 20 Meq IV 125 mls/hr DIRECT ROMERO Administration Sodium Chloride 1,000 mls @ 150 mls/hr 07/22/21 22:00 Nacl 0.9% 1000 Ml IV DIRECT ROMERO Levetiracetam 500 mg/ Dextrose 105 mls @ 400 mls/hr 07/23/21 10:00 07/23/21 10:03 IV 400 mls/hr Q12HR ROMERO Administration Ceftriaxone Sodium 1 gm in 50 mls @ 100 mls/hr 07/23/21 10:00 07/23/21 09:50 Rocephin/Ns 1 Gm/50 Ml IV 100 mls/hr Q24HR ROMERO Administration Protocol Thiamine HCl 100 mg/ Folic 1,011.2 mls @ 250 mls/hr 07/23/21 22:00 Acid 1 mg/ Multivitamins/ IV 07/24/21 02:02 Minerals 10 ml/ Sodium ONCE ONE Chloride Potassium Chloride 10 meq in 100 mls @ 100 mls/hr 07/23/21 08:00 07/23/21 10:04 Kcl 10meq/100ml IV 07/23/21 13:59 100 mls/hr Q1H ROMERO Administration Potassium Phosphate 45 mmol/ 515 mls @ 85 mls/hr 07/23/21 12:30 Sodium Chloride IV 07/23/21 18:33 ONCE ONE Lorazepam 2 mg 07/23/21 05:10 07/23/21 05:17 Lorazepam 2 Mg/Ml Vial IV 2 mg Q1H PRN Administration CIWA-Ar 8-15 Lorazepam 4 mg 07/23/21 05:10 Lorazepam 2 Mg/Ml Vial IV Q1H PRN CIWA-Ar 16-25 Lorazepam 4 mg 07/23/21 05:10 Lorazepam 2 Mg/Ml Vial IV Q15MIN PRN CIWA-Ar >25 Magnesium Hydroxide 30 ml 07/22/21 21:57 Magnesium Hydroxide (Mom) Oral Liqd Udc PO Q4H PRN Constipation Morphine Sulfate 2 mg 07/22/21 21:57 Morphine 2 Mg/1 Ml Inj IV Q4H PRN Pain, Moderate (4-6) Morphine Sulfate 4 mg 07/22/21 21:57 Morphine 4 Mg/1 Ml Inj IV Q4H PRN Pain , Severe (7-10) Multi-Ingred Cream/Lotion/Oil/Oint 1 applic 07/22/21 18:46 Mineral Oil/Petrolatum, White Ophth Oint 3.5 Gm OU Q4HR PRN Dry Eye(s) Senna/Docusate Sodium 1 tab 07/22/21 22:00 07/23/21 09:50 Sennosides/Docusate Sodium 8.6/50 Mg Tab FEEDTUBE 1 tab BID ROMERO Administration Sodium Chloride 10 ml 07/22/21 22:00 07/23/21 09:53 Sodium Chloride 0.9% 10 Ml Flush Syringe IV 10 ml BID ROMERO Administration Sodium Chloride 10 ml 07/22/21 21:57 Sodium Chloride 0.9% 10 Ml Flush Syringe IV PRN PRN LINE FLUSH Nutrition/Malnutrition Assess - Dietary Evaluation Nutrition/Malnutrition Findings: Nutrition Notes Start: 07/23/21 09:29 Freq: Status: Active Protocol: Document 07/23/21 09:29 SARINA (Rec: 07/23/21 09:40 [id number]) Nutrition Notes Need for Assessment generated from: MD Order Initial or Follow up Assessment Current Diagnosis Acute Kidney Injury, Respiratory Failure Other Pertinent Diagnosis DKA, seizures, AMS, alcohol abuse, SIRS, transaminitis Current Diet NPO Labs/Tests A1c 9.8 Na 150 K 2.7 BG 181 Pertinent Medications Insulin ggt Propofol at 21.762 ml/hr ( 575kcal) KCl 10 mEq D5w/.45NS/20 mEq K at 125 ml/ hr Height 5 ft 8 in Weight 76.5 kg [place] Body Weight (kg) 70.00 BMI 25.6 Weight Status Appropriate Subjective/Other Information MD consult to eval nutritional intakes. Pt on vent. Burn Absent Trauma Absent Current % PO Negligible Minimum of two criteria No #1 Nutrition Diagnosis Inadequate oral intake Etiology respiratory failure As Evidenced by Signs and Symptoms pt on vent and unable to consume PO Is patient on ventilator? Yes Is Patient Ambulatory and/or Out of Bed No REE-([facility]-confined to bed) [phone] Calculation Used for Recommendations [facility] Additional Notes Protein: 1.2-2g/kg (92-153g) Fluid: 1 ml/kcal or per MD Nutrition Intervention Change Diet Order: Start TF when able Nutrition Support: Recommend: Glucerna 1.2 at 65 ml/hr Kcal 1,872 Protein (gm) 94 Fluid (mL) 1,256 Goal #1 Start TF or extubation and diet advancement Anticipated Discharge Needs: Unable to determine at this time Follow-Up By: 07/25/21 Additional Comments F/U: TF consult or POC
[2021-07-23] MEDS ORDERED: POTASSIUM PHOSPHATE 45 MMOL in SODIUM CHLORIDE 0.9% 500 ML 500 ML IV ONE (12:30)
[2021-07-23 16:22] LABS: BUN/Creatinine Ratio 11; Blood Urea Nitrogen 16 mg/dL (9-20); Calcium 8.8 mg/dL (8.4-10.2); Hemolysis Index 7
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
[2021-07-23] MEDS ORDERED: MAGNESIUM SULFATE 2 GM/50 ML BAG IV ONE (19:30)
[2021-07-23] MEDS ORDERED: LACTATED RINGERS 1,000 ML IV ONE (19:30)
--- NOTE | 2021-07-23 20:43 | Consultation ---
DATE OF CONSULTATION: 07/23/2021 REFERRING PHYSICIAN: Dr. Inder Pascual. INDICATION: Increased liver function tests. HISTORY OF PRESENT ILLNESS: The patient is a 46-year-old who presents to the Emergency Room after multiple seizures. The patient was found in the outside where he had multiple seizures and is noted to be in SVT and had to be given adenosine. The patient subsequently was intubated in the field and brought into the hospital. In the hospital, the patient was noted to have increased liver function tests and GI is consulted to aid in management. History is per chart and family. Mother indicates that the patient drinks alcohol almost on a daily basis and also uses marijuana. No reported history of liver disease in the past. No other specific complaints. PAST MEDICAL HISTORY: Seizures. MEDICATIONS: Reviewed and updated in chart. ALLERGIES: No known drug allergies. SOCIAL HISTORY: Smoker or drinker and uses marijuana. FAMILY HISTORY: Negative for colon cancer, IBD, or liver disease. REVIEW OF SYSTEMS: GENERAL: Reports some weakness. HEENT: No visual complaints or tinnitus. PULMONARY: No shortness of breath or chest pain. GASTROINTESTINAL: No complaints. All points of 13-point review of systems otherwise reportedly negative. PHYSICAL EXAMINATION: VITAL SIGNS: Temperature of 98.7, pulse 72, respirations 26, blood pressure 140/82. GENERAL: Fairly nourished with no acute distress. HEENT: Pupils round and reactive. PULMONARY: Rhonchi. CARDIOVASCULAR: Regular rate and rhythm. SKIN: No obvious rashes. LABORATORY DATA: Pertinent for white count of 17.7, hemoglobin and hematocrit of 13.4 and 45, platelet count 329. Chem-7 pertinent for sodium of 147, potassium 3.0, chloride 110, CO2 of 20, BUN and creatinine of 16 and 1.2. LFTs, AST and ALT of 270 and 107, alkaline phosphatase of 334 with a total bilirubin of 0.6. ASSESSMENT: A 46-year-old male with a history of seizure disorder, presented after multiple seizure episode and had to be intubated in the field. The patient with a reported history of daily alcohol and marijuana use. 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 No other etiology. PLAN: 1. Basic liver serologies to be ordered. 2. Liver ultrasound. 3. Hemodynamic stability per primary team. 4. No need for liver biopsy or intervention. 5. Other issues including medication management and seizure disorders per primary team. 6. We will follow. TID: [id number] RECEIPT: [id number] RICARDA/PRITI
[2021-07-23] MEDS ORDERED: THIAMINE 100 MG, FOLIC ACID 1 MG, MULTIPLE VITAMIN INJ, ADULT 10 ML in SODIUM CHLORIDE ... IV ONE (22:00)
[2021-07-23 23:37] LABS: BUN/Creatinine Ratio 9; Blood Urea Nitrogen 14 mg/dL (9-20); Calcium 8.4 mg/dL (8.4-10.2); Hemolysis Index 13
[2021-07-24] MEDS: D5W/0.45% NACL/KCL 20 MEQ 20 MEQ/1,000 ML BAG IV SCH ×2 (02:00→09:37)
[2021-07-24] MEDS: INSULIN REGULAR, HUMAN 100 UNITS in SODIUM CHLORIDE 0.9% 99 ML IV SCH (03:20)
[2021-07-24 05:17] LABS: Hematocrit 33.5 % (35.5-45.6); Mean Corpuscular HGB Conc 33 % (32-34); Mean Corpuscular Volume 105 fl (84-94); Platelet Count 219 K/mm3 (140-440); Red Blood Count 3.19 M/mm3 (3.65-5.03); Red Cell Distribution Width 14.7 % (13.2-15.2)
[2021-07-24] MEDS: HEPARIN 5,000 UNIT/1 ML VIAL SUB-Q SCH ×3 (05:17→21:19)
[2021-07-24 05:26] LABS: Alanine Aminotransferase 47 units/L (7-56); Albumin 2.8 g/dL (3.9-5); BUN/Creatinine Ratio 10; Blood Urea Nitrogen 14 mg/dL (9-20); Calcium 8.1 mg/dL (8.4-10.2); Hemolysis Index 6
[2021-07-24 06:10] LABS: ABG Base Excess -2.6 mmol/L (-2.0-3.0); ABG HCO3 18.5 mmol/L (20.0-26.0); ABG PCO2 22.4 mm Hg; ABG PH 7.534 pH Units (7.350-7.450); ABG PO2 80.2 mm Hg (80.0-90.0)
[2021-07-24 06:11] LABS: ABG Methemoglobin 0.3 % (0.0-1.5); ABG Oxygen Saturation 95.8 % (95.0-99.0)
--- NOTE | 2021-07-24 07:23 | Progress Note ---
Assessment and Plan Acute Respiratory Failure - Intubated on 07/22 for airway protection Acute Metabolic Encephalopathy Seizure in the setting of alcohol use disorder Diabetic ketoacidosis ETOH abuse Acute Kidney Injury most likely ATN Hypokalemia Hypophosphatemia SIRS (systemic inflammatory response syndrome) Leukocytosis Lactic Acidosis Stop all sedation. Place on SBT, get weaning parameters Goal to liberate from MVS -VAP bundle addressed, aspiration precautions HOB >40 -Titrate supplemental oxygen to keep SpO2 89-92% -CXR, ABG as clinically indicated -On empiric Keppra, EEG pending -Titrate analgesia to CPOT 0-3 -Sedation, RASS of -1 to -2 (currently on Propofol and Fentanyl) - Daily assessment for readiness to wean, SAT and SBT -Change to weigt based, basal bolus insulin therapy -Alcohol withdrawal precautions -VTE prophylaxis-heparin -Stress ulcer prophylaxis-Famotidine -Avoid nephrotoxins, adjust all medications for GFR and CrCL -On empiric antibiotics, follow up cultures and de-escalate antibiotics based on culture data and clinical response -Will need substance abuse counselling once he is liberated from MVS -Supportive transfusions if clinically indicated, keep HgB >7g/dL -Address electrolyte derangements as the arise The high probability of a clinically significant, sudden or life threatening deterioration of the [multiple] system(s) required my full and direct attention, intervention and personal management. The aggregate critical care time was [35] minutes. This time is in addition to time spent performing reported procedures but includes the following: [x] Data Review and interpretation [x] Patient assessment and monitoring of vital signs [x] Documentation [x] Medication orders and management Subjective Date of service: 07/24/21 Interval history: Follow up for Acute Respiratory Failure; Acute Metabolic Encephalopathy;Seizure in the setting of alcohol use disorder Diabetic ketoacidosis; ETOH abuse;Acute Kidney Injury most likely ATN Seen and examined. Vitals, labs,medications, chart and imaging reviewed. Agitation overnight requiring resumption of Propofol. No fevers, no diarrhea or vomiting. Discussed with respiratory and nursing staff. MVS: AC-VC 18/500/ 6/ 30% Objective - Exam Narrative Exam: General appearance: Present: no acute distress, well-nourished, other (Intubated and Sedated) - EENT Eyes: Present: PERRL - Respiratory Respiratory effort: normal Respiratory: bilateral: CTA - Cardiovascular Rhythm: regular Heart Sounds: Present: S1 & S2 - Extremities Extremities: no ischemia, pulses intact, pulses symmetrical Peripheral Pulses: within normal limits - Abdominal General gastrointestinal: soft, non-tender, normal bowel sounds - Integumentary Integumentary: Present: clear, warm, dry - Psychiatric Psychiatric: other (Intubated and Sedated) - Neurologic Neurologic: other (Intubated and Sedated) - Allied Health Allied health notes reviewed: nursing Vital Signs - 12hr 07/23/21 07/23/21 07/23/21 19:30 19:41 20:00 Temperature 99 F Pulse Rate 69 69 Respiratory 26 H 26 H Rate Blood Pressure 116/82 120/87 O2 Sat by Pulse 100 100 Oximetry 07/23/21 07/23/21 07/23/21 20:30 21:00 21:30 Temperature Pulse Rate 66 65 65 Respiratory 26 H 26 H 26 H Rate Blood Pressure 127/90 134/92 125/89 O2 Sat by Pulse 100 100 Oximetry 07/23/21 07/23/21 07/23/21 22:00 22:30 23:00 Temperature Pulse Rate 71 65 65 Respiratory 26 H 26 H 26 H Rate Blood Pressure 132/96 124/89 127/89 O2 Sat by Pulse 99 99 99 Oximetry 07/23/21 07/23/21 07/23/21 23:03 23:13 23:30 Temperature Pulse Rate 64 65 65 Respiratory 26 H 26 H Rate Blood Pressure 127/89 133/92 O2 Sat by Pulse 100 99 Oximetry 07/24/21 07/24/21 07/24/21 00:00 00:07 00:30 Temperature 98.6 F Pulse Rate 65 65 65 Respiratory 26 H 26 H Rate Blood Pressure 139/98 139/98 141/100 O2 Sat by Pulse 99 100 99 Oximetry 07/24/21 07/24/21 07/24/21 01:00 01:30 02:00 Temperature Pulse Rate 65 75 67 Respiratory 26 H 26 H 26 H Rate Blood Pressure 144/101 142/92 123/84 O2 Sat by Pulse 98 97 99 Oximetry 07/24/21 07/24/21 07/24/21 02:30 03:00 03:30 Temperature Pulse Rate 67 67 74 Respiratory 26 H 26 H 26 H Rate Blood Pressure 119/83 122/82 134/92 O2 Sat by Pulse 98 99 97 Oximetry 11/07/24/21 07/24/21 04:00 04:30 05:00 Temperature 98.6 F Pulse Rate 70 71 70 Respiratory 18 18 18 Rate Blood Pressure 128/88 119/81 113/75 O2 Sat by Pulse 96 96 97 Oximetry 07/24/21 07/24/21 07/24/21 05:30 06:00 06:30 Temperature Pulse Rate 69 69 68 Respiratory 18 18 18 Rate Blood Pressure 112/76 113/75 110/75 O2 Sat by Pulse 97 96 97 Oximetry Constitutional: no acute distress, other (orally intuabted) Eyes: non-icteric ENT: oropharynx moist Neck: supple, no lymphadenopathy Effort: normal Ascultation: Bilateral: clear, diminished breath sounds Cardiovascular: regular rate and rhythm, other (S1,S2) Gastrointestinal: normoactive bowel sounds, soft, non-tender, non-distended Integumentary: normal Extremities: no cyanosis, no edema, pink and warm, pulses normal Neurologic: non-focal exam, other (obeys simple commands) CBC and BMP: 07/24/21 04:41 07/24/21 04:41 ABG, PT/INR, D-dimer: ABG ABG pH 7.534 pH Units (7.350-7.450) H 07/24/21 03:29 POC ABG pCO2 44.7 mmHg (32.0-48.0) 07/22/21 21:09 ABG pCO2 22.4 mm Hg 07/24/21 03:29 POC ABG pO2 189.2 mmHg (83-108) H 07/22/21 21:09 ABG pO2 80.2 mm Hg (80.0-90.0) 07/24/21 03:29 POC ABG HCO3 18.8 07/22/21 21:09 ABG O2 Saturation 95.8 % (95.0-99.0) 07/24/21 03:29 PT/INR, D-dimer PT 17.4 Sec. (12.2-14.9) H 07/22/21 19:18 INR 1.29 (0.87-1.13) H 07/22/21 19:18 Abnormal lab findings: Abnormal Labs 07/22/21 07/22/21 07/22/21 19:18 19:18 19:18 WBC 17.7 H RBC Hgb Hct MCV 115 H MCH 34 H MCHC 30 L Baso # (Auto) 0.2 H Seg Neutrophils % 78.4 H Seg Neuts % (Manual) 75.0 H Seg Neutrophils # Man 13.3 H PT 17.4 H INR 1.29 H ABG pH POC ABG pO2 ABG HCO3 ABG Base Excess ABG Hemoglobin ABG Oxyhemoglobin ABG Potassium ABG Chloride VBG pH Carboxyhemoglobin Sodium Potassium 5.6 H Chloride 84.9 L Carbon Dioxide 6 L* Creatinine 1.9 H Glucose 941 H* POC Glucose Hemoglobin A1c Lactic Acid Calcium 11.6 H Phosphorus Magnesium Ferritin AST 270 H ALT 107 H Alkaline Phosphatase 334 H Total Protein 10.0 H Albumin Arterial Blood Ionized Calcium Ur Specific Asher Salicylates Acetaminophen 07/22/21 07/22/21 07/22/21 19:18 19:18 19:18 WBC RBC Hgb Hct MCV MCH MCHC Baso # (Auto) Seg Neutrophils % Seg Neuts % (Manual) Seg Neutrophils # Man PT INR ABG pH POC ABG pO2 ABG HCO3 ABG Base Excess ABG Hemoglobin ABG Oxyhemoglobin ABG Potassium ABG Chloride VBG pH 7.030 L* Carboxyhemoglobin Sodium Potassium Chloride Carbon Dioxide Creatinine Glucose POC Glucose Hemoglobin A1c Lactic Acid Calcium Phosphorus Magnesium Ferritin AST ALT Alkaline Phosphatase Total Protein Albumin Arterial Blood Ionized Calcium Ur Specific Asher Salicylates 0.6 L Acetaminophen 5.0 L 07/22/21 07/22/21 07/22/21 20:01 20:29 20:58 WBC RBC Hgb Hct MCV MCH MCHC Baso # (Auto) Seg Neutrophils % Seg Neuts % (Manual) Seg Neutrophils # Man PT INR ABG pH POC ABG pO2 ABG HCO3 ABG Base Excess ABG Hemoglobin ABG Oxyhemoglobin ABG Potassium ABG Chloride VBG pH Carboxyhemoglobin Sodium Potassium Chloride Carbon Dioxide Creatinine Glucose POC Glucose > 600 H Hemoglobin A1c Lactic Acid Calcium Phosphorus 5.20 H Magnesium 3.00 H Ferritin AST ALT Alkaline Phosphatase Total Protein Albumin Arterial Blood Ionized Calcium Ur Specific Asher 1.033 H Salicylates Acetaminophen 07/22/21 07/22/21 07/22/21 20:58 21:09 21:29 WBC RBC Hgb Hct MCV MCH MCHC Baso # (Auto) Seg Neutrophils % Seg Neuts % (Manual) Seg Neutrophils # Man PT INR ABG pH 7.242 L POC ABG pO2 189.2 H ABG HCO3 ABG Base Excess ABG Hemoglobin ABG Oxyhemoglobin 98.7 H ABG Potassium 4.6 H ABG Chloride 97.0 L VBG pH Carboxyhemoglobin 0.3 L Sodium 135 L Potassium Chloride 91.5 L Carbon Dioxide 15 L D Creatinine 1.6 H Glucose 810 H* POC Glucose Hemoglobin A1c Lactic Acid 10.30 H* Calcium 11.0 H Phosphorus Magnesium Ferritin AST ALT Alkaline Phosphatase Total Protein Albumin Arterial Blood Ionized Calcium 5.6 H Ur Specific Asher Salicylates Acetaminophen 07/22/21 07/22/21 07/22/21 22:46 22:46 22:46 WBC RBC Hgb Hct MCV MCH MCHC Baso # (Auto) Seg Neutrophils % Seg Neuts % (Manual) Seg Neutrophils # Man PT INR ABG pH POC ABG pO2 ABG HCO3 ABG Base Excess ABG Hemoglobin ABG Oxyhemoglobin ABG Potassium ABG Chloride VBG pH Carboxyhemoglobin Sodium Potassium Chloride 96.7 L Carbon Dioxide 17 L Creatinine 1.5 H Glucose 659 H* POC Glucose Hemoglobin A1c 9.8 H Lactic Acid Calcium 10.6 H Phosphorus Magnesium 2.80 H Ferritin AST ALT Alkaline Phosphatase Total Protein Albumin Arterial Blood Ionized Calcium Ur Specific Asher Salicylates Acetaminophen 07/23/21 07/23/21 07/23/21 00:27 01:36 02:26 WBC RBC Hgb Hct MCV MCH MCHC Baso # (Auto) Seg Neutrophils % Seg Neuts % (Manual) Seg Neutrophils # Man PT INR ABG pH POC ABG pO2 ABG HCO3 ABG Base Excess ABG Hemoglobin ABG Oxyhemoglobin ABG Potassium ABG Chloride VBG pH Carboxyhemoglobin Sodium 148 H D Potassium 3.5 L Chloride Carbon Dioxide 21 L Creatinine 1.5 H Glucose 409 H POC Glucose 264 H 220 H Hemoglobin A1c Lactic Acid Calcium 10.8 H Phosphorus Magnesium Ferritin AST ALT Alkaline Phosphatase Total Protein Albumin Arterial Blood Ionized Calcium Ur Specific Asher Salicylates Acetaminophen 07/23/21 07/23/21 07/23/21 03:29 04:29 04:29 WBC RBC Hgb Hct MCV MCH MCHC Baso # (Auto) Seg Neutrophils % Seg Neuts % (Manual) Seg Neutrophils # Man PT INR ABG pH POC ABG pO2 ABG HCO3 ABG Base Excess ABG Hemoglobin ABG Oxyhemoglobin ABG Potassium ABG Chloride VBG pH Carboxyhemoglobin Sodium 150 H Potassium 2.7 L* D Chloride 111.7 H Carbon Dioxide Creatinine Glucose 181 H POC Glucose 189 H 155 H Hemoglobin A1c Lactic Acid Calcium Phosphorus Magnesium Ferritin AST ALT Alkaline Phosphatase Total Protein Albumin Arterial Blood Ionized Calcium Ur Specific Asher Salicylates Acetaminophen 07/23/21 07/23/21 07/23/21 05:27 06:33 07:48 WBC RBC Hgb Hct MCV MCH MCHC Baso # (Auto) Seg Neutrophils % Seg Neuts % (Manual) Seg Neutrophils # Man PT INR ABG pH POC ABG pO2 ABG HCO3 ABG Base Excess ABG Hemoglobin ABG Oxyhemoglobin ABG Potassium ABG Chloride VBG pH Carboxyhemoglobin Sodium Potassium Chloride Carbon Dioxide Creatinine Glucose POC Glucose 175 H 177 H 171 H Hemoglobin A1c Lactic Acid Calcium Phosphorus Magnesium Ferritin AST ALT Alkaline Phosphatase Total Protein Albumin Arterial Blood Ionized Calcium Ur Specific Asher Salicylates Acetaminophen 07/23/21 07/23/21 07/23/21 08:32 09:25 10:27 WBC RBC Hgb Hct MCV MCH MCHC Baso # (Auto) Seg Neutrophils % Seg Neuts % (Manual) Seg Neutrophils # Man PT INR ABG pH POC ABG pO2 ABG HCO3 ABG Base Excess ABG Hemoglobin ABG Oxyhemoglobin ABG Potassium ABG Chloride VBG pH Carboxyhemoglobin Sodium Potassium Chloride Carbon Dioxide Creatinine Glucose POC Glucose 216 H 142 H 136 H Hemoglobin A1c Lactic Acid Calcium Phosphorus Magnesium Ferritin AST ALT Alkaline Phosphatase Total Protein Albumin Arterial Blood Ionized Calcium Ur Specific Asher Salicylates Acetaminophen 07/23/21 07/23/21 07/23/21 10:32 10:32 11:32 WBC RBC Hgb Hct MCV MCH MCHC Baso # (Auto) Seg Neutrophils % Seg Neuts % (Manual) Seg Neutrophils # Man PT INR ABG pH POC ABG pO2 ABG HCO3 ABG Base Excess ABG Hemoglobin ABG Oxyhemoglobin ABG Potassium ABG Chloride VBG pH Carboxyhemoglobin Sodium 147 H Potassium 3.0 L Chloride 110.0 H Carbon Dioxide 20 L Creatinine Glucose 145 H POC Glucose 124 H Hemoglobin A1c Lactic Acid 4.10 H* Calcium Phosphorus 0.90 L* D Magnesium Ferritin AST ALT Alkaline Phosphatase Total Protein Albumin Arterial Blood Ionized Calcium Ur Specific Asher Salicylates Acetaminophen 07/23/21 07/23/21 07/23/21 12:36 13:33 14:33 WBC RBC Hgb Hct MCV MCH MCHC Baso # (Auto) Seg Neutrophils % Seg Neuts % (Manual) Seg Neutrophils # Man PT INR ABG pH POC ABG pO2 ABG HCO3 ABG Base Excess ABG Hemoglobin ABG Oxyhemoglobin ABG Potassium ABG Chloride VBG pH Carboxyhemoglobin Sodium Potassium Chloride Carbon Dioxide Creatinine Glucose POC Glucose 125 H 111 H 121 H Hemoglobin A1c Lactic Acid Calcium Phosphorus Magnesium Ferritin AST ALT Alkaline Phosphatase Total Protein Albumin Arterial Blood Ionized Calcium Ur Specific Asher Salicylates Acetaminophen 07/23/21 07/23/21 07/23/21 15:36 15:47 15:47 WBC RBC Hgb Hct MCV MCH MCHC Baso # (Auto) Seg Neutrophils % Seg Neuts % (Manual) Seg Neutrophils # Man PT INR ABG pH POC ABG pO2 ABG HCO3 ABG Base Excess ABG Hemoglobin ABG Oxyhemoglobin ABG Potassium ABG Chloride VBG pH Carboxyhemoglobin Sodium 148 H Potassium 3.0 L Chloride 112.8 H Carbon Dioxide 19 L Creatinine 1.4 H Glucose 135 H POC Glucose 124 H Hemoglobin A1c Lactic Acid 4.20 H* Calcium Phosphorus Magnesium Ferritin AST ALT Alkaline Phosphatase Total Protein Albumin Arterial Blood Ionized Calcium Ur Specific Asher Salicylates Acetaminophen 07/23/21 07/23/21 07/23/21 16:46 17:45 18:28 WBC RBC Hgb Hct MCV MCH MCHC Baso # (Auto) Seg Neutrophils % Seg Neuts % (Manual) Seg Neutrophils # Man PT INR ABG pH POC ABG pO2 ABG HCO3 ABG Base Excess ABG Hemoglobin ABG Oxyhemoglobin ABG Potassium ABG Chloride VBG pH Carboxyhemoglobin Sodium Potassium Chloride Carbon Dioxide Creatinine Glucose POC Glucose 126 H 139 H 144 H Hemoglobin A1c Lactic Acid Calcium Phosphorus Magnesium Ferritin AST ALT Alkaline Phosphatase Total Protein Albumin Arterial Blood Ionized Calcium Ur Specific Asher Salicylates Acetaminophen 07/23/21 07/23/21 07/23/21 20:27 21:36 22:22 WBC RBC Hgb Hct MCV MCH MCHC Baso # (Auto) Seg Neutrophils % Seg Neuts % (Manual) Seg Neutrophils # Man PT INR ABG pH POC ABG pO2 ABG HCO3 ABG Base Excess ABG Hemoglobin ABG Oxyhemoglobin ABG Potassium ABG Chloride VBG pH Carboxyhemoglobin Sodium Potassium Chloride 115.2 H Carbon Dioxide 18 L Creatinine 1.5 H Glucose 155 H POC Glucose 154 H 133 H Hemoglobin A1c Lactic Acid Calcium Phosphorus Magnesium Ferritin AST ALT Alkaline Phosphatase Total Protein Albumin Arterial Blood Ionized Calcium Ur Specific Asher Salicylates Acetaminophen 07/23/21 07/23/21 07/24/21 22:37 23:46 00:29 WBC RBC Hgb Hct MCV MCH MCHC Baso # (Auto) Seg Neutrophils % Seg Neuts % (Manual) Seg Neutrophils # Man PT INR ABG pH POC ABG pO2 ABG HCO3 ABG Base Excess ABG Hemoglobin ABG Oxyhemoglobin ABG Potassium ABG Chloride VBG pH Carboxyhemoglobin Sodium Potassium Chloride Carbon Dioxide Creatinine Glucose POC Glucose 130 H 111 H 155 H Hemoglobin A1c Lactic Acid Calcium Phosphorus Magnesium Ferritin AST ALT Alkaline Phosphatase Total Protein Albumin Arterial Blood Ionized Calcium Ur Specific Asher Salicylates Acetaminophen 07/24/21 07/24/21 07/24/21 02:01 03:11 03:29 WBC RBC Hgb Hct MCV MCH MCHC Baso # (Auto) Seg Neutrophils % Seg Neuts % (Manual) Seg Neutrophils # Man PT INR ABG pH 7.534 H POC ABG pO2 ABG HCO3 18.5 L ABG Base Excess -2.6 L ABG Hemoglobin 11.3 L ABG Oxyhemoglobin ABG Potassium ABG Chloride VBG pH Carboxyhemoglobin Sodium Potassium Chloride Carbon Dioxide Creatinine Glucose POC Glucose 140 H 159 H Hemoglobin A1c Lactic Acid Calcium Phosphorus Magnesium Ferritin AST ALT Alkaline Phosphatase Total Protein Albumin Arterial Blood Ionized Calcium Ur Specific Asher Salicylates Acetaminophen 07/24/21 07/24/21 07/24/21 04:06 04:41 04:41 WBC RBC 3.19 L Hgb 11.0 L Hct 33.5 L D MCV 105 H MCH 35 H MCHC Baso # (Auto) Seg Neutrophils % Seg Neuts % (Manual) Seg Neutrophils # Man PT INR ABG pH POC ABG pO2 ABG HCO3 ABG Base Excess ABG Hemoglobin ABG Oxyhemoglobin ABG Potassium ABG Chloride VBG pH Carboxyhemoglobin Sodium Potassium Chloride 114.8 H Carbon Dioxide 18 L Creatinine 1.4 H Glucose 178 H POC Glucose 167 H Hemoglobin A1c Lactic Acid Calcium 8.1 L Phosphorus Magnesium Ferritin AST 62 H ALT Alkaline Phosphatase Total Protein Albumin 2.8 L Arterial Blood Ionized Calcium Ur Specific Asher Salicylates Acetaminophen 07/24/21 07/24/21 07/24/21 04:41 05:13 06:01 WBC RBC Hgb Hct MCV MCH MCHC Baso # (Auto) Seg Neutrophils % Seg Neuts % (Manual) Seg Neutrophils # Man PT INR ABG pH POC ABG pO2 ABG HCO3 ABG Base Excess ABG Hemoglobin ABG Oxyhemoglobin ABG Potassium ABG Chloride VBG pH Carboxyhemoglobin Sodium Potassium Chloride Carbon Dioxide Creatinine Glucose POC Glucose 162 H 173 H Hemoglobin A1c Lactic Acid Calcium Phosphorus Magnesium Ferritin 657.6 H AST ALT Alkaline Phosphatase Total Protein Albumin Arterial Blood Ionized Calcium Ur Specific Asher Salicylates Acetaminophen 07/24/21 07:15 WBC RBC Hgb Hct MCV MCH MCHC Baso # (Auto) Seg Neutrophils % Seg Neuts % (Manual) Seg Neutrophils # Man PT INR ABG pH POC ABG pO2 ABG HCO3 ABG Base Excess ABG Hemoglobin ABG Oxyhemoglobin ABG Potassium ABG Chloride VBG pH Carboxyhemoglobin Sodium Potassium Chloride Carbon Dioxide Creatinine Glucose POC Glucose 151 H Hemoglobin A1c Lactic Acid Calcium Phosphorus Magnesium Ferritin AST ALT Alkaline Phosphatase Total Protein Albumin Arterial Blood Ionized Calcium Ur Specific Asher Salicylates Acetaminophen Chest x-ray: image reviewed Allied health notes reviewed: RT
--- NOTE | 2021-07-24 08:05 | Consultation ---
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 Potassium Chloride Carbon Dioxide Creatinine Glucose POC Glucose 162 H 173 H Hemoglobin A1c Lactic Acid Calcium Phosphorus Magnesium Ferritin 657.6 H AST ALT Alkaline Phosphatase Total Protein Albumin Arterial Blood Ionized Calcium Ur Specific [place] Salicylates Acetaminophen 07/24/21 07:15 WBC RBC Hgb Hct MCV MCH MCHC Baso # (Auto) Seg Neutrophils % Seg Neuts % (Manual) Seg Neutrophils # Man PT INR ABG pH POC ABG pO2 ABG HCO3 ABG Base Excess ABG Hemoglobin ABG Oxyhemoglobin ABG Potassium ABG Chloride VBG pH Carboxyhemoglobin Sodium Potassium Chloride Carbon Dioxide Creatinine Glucose POC Glucose 151 H Hemoglobin A1c Lactic Acid Calcium Phosphorus Magnesium Ferritin AST ALT Alkaline Phosphatase Total Protein Albumin Arterial Blood Ionized Calcium Ur Specific [place] Salicylates Acetaminophen Assessment and Plan Assessment and Plan 46-year-old male with no significant past medical history was brought into the emergency room by EMS today for evaluation of multiple seizures. Patient was said to have had convulsive events on the field which resolved spontaneously. He was also said to have had an episode of SVT which was terminated by 6 mg of adenosine. Accu-Chek on the field was said to be "high". - Patient Problems # DKA (diabetic ketoacidosis) Patient admitted into the intensive care unit and placed on IV fluid and insulin drip. We will monitor Accu-Cheks. A1C#9.6 # Seizures We will place on seizure precautions. Seizures may be alcohol related. Patient has been started on Keppra IV [address] brain and CTA brain and neck are unremarkable -EEG is pending # Acute encephalopathy resolved Possibly secondary to the seizures and DKA. Patient currently intubated. he is alert interactive off sedation no reported seizure # Acute respiratory failure Patient currently intubated off sedation We await further evaluation and recommendations from tray drier operator. # Alcohol abuse Patient placed on alcohol withdrawal protocol. We will also be placed on multivitamins. # Renal insufficiency Patient placed on IV fluid. Will monitor BUN and creatinine. Consult placed to nephrology for evaluation. # SIRS (systemic inflammatory response syndrome) Patient has no obvious source of infection. He has been placed on IV fluid and empiric IV antibiotics. # Transaminitis Possibly secondary to history of alcohol abuse. We will monitor liver enzymes. Consult placed to gastroenterology done no further action. # DVT prophylaxis Patient placed on subcutaneous heparin. # Full code status Patient is full code. PLAN 1- As above 2- EEG to review 3- Seizure precaution 4- DT precaution 5- Maintain Keppra 6- conisder MRI brain with gd after extubation will follow
--- NOTE | 2021-07-24 08:55 | Progress Note ---
Assessment and Plan 1. Acute kidney injury: Vasomotor QAMAR in the setting of volume depletion / DKA. Received IV contrast on 07/22. Monitor renal function. Continue IV fluids. Creatinine level is better. Likely baseline CKD. Avoid nephrotoxic agents. Meds dosage based on GFR. 2. FEN: Hypokalemia, K level is better. Anion-gap Metabolic acidosis, monitor. Replete lytes. Monitor lytes and volume status. 3. DKA, POA: S/p Insulin drip. A1C 9.8. Per primary. 4. Acute hypoxic resp failure: Currently intubated, on vent. 5. Acute Metabolic Encephalopathy / Seizure / ETOH abuse: CT head with no acute intracranial abnormalities. Keppra. Monitor for DT. 6. Supraventricular Tachycardia (SVT): SVT in the ED- S/p adenosine. Currently SR. 7. Elevated Transaminases, POA: Monitor. Will sign off. Subjective: Patient was seen and examined at the bedside. RN at the bedside. Examination: General appearance: well-developed, appears stated age, intubated, on vent HEENT: atraumatic, no icterus, pupils equal Neck: trachea midline Respiratory: ctab Heart: S1S2, no murmur Abdomen: soft, bowel sounds heard, NT Integumentary: no obvious rash Neurologic: not responding Ext: no edema noted : Corley catheter Subjective Date of service: 07/24/21 Objective - Vital Signs Vital signs: Vital Signs - 12hr 07/23/21 07/23/21 07/23/21 21:00 21:30 22:00 Temperature Pulse Rate 65 65 71 Respiratory 26 H 26 H 26 H Rate Blood Pressure 134/92 125/89 132/96 O2 Sat by Pulse 100 100 99 Oximetry 07/23/21 07/23/21 07/23/21 22:30 23:00 23:03 Temperature Pulse Rate 65 65 64 Respiratory 26 H 26 H 26 H Rate Blood Pressure 124/89 127/89 127/89 O2 Sat by Pulse 99 99 100 Oximetry 07/23/21 07/23/21 07/24/21 23:13 23:30 00:00 Temperature 98.6 F Pulse Rate 65 65 65 Respiratory 26 H 26 H Rate Blood Pressure 133/92 139/98 O2 Sat by Pulse 99 99 Oximetry 07/24/21 07/24/21 07/24/21 00:07 00:30 01:00 Temperature Pulse Rate 65 65 65 Respiratory 26 H 26 H Rate Blood Pressure 139/98 141/100 144/101 O2 Sat by Pulse 100 99 98 Oximetry 07/24/21 07/24/21 07/24/21 01:30 02:00 02:30 Temperature Pulse Rate 75 67 67 Respiratory 26 H 26 H 26 H Rate Blood Pressure 142/92 123/84 119/83 O2 Sat by Pulse 97 99 98 Oximetry 07/24/21 07/24/21 07/24/21 03:00 03:30 04:00 Temperature 98.6 F Pulse Rate 67 74 70 Respiratory 26 H 26 H 18 Rate Blood Pressure 122/82 134/92 128/88 O2 Sat by Pulse 99 97 96 Oximetry 07/24/21 07/24/21 07/24/21 04:30 05:00 05:30 Temperature Pulse Rate 71 70 69 Respiratory 18 18 18 Rate Blood Pressure 119/81 113/75 112/76 O2 Sat by Pulse 96 97 97 Oximetry 07/24/21 07/24/21 07/24/21 06:00 06:30 07:00 Temperature Pulse Rate 69 68 66 Respiratory 18 18 18 Rate Blood Pressure 113/75 110/75 109/75 O2 Sat by Pulse 96 97 96 Oximetry 07/24/21 07/24/21 07/24/21 07:30 07:32 08:00 Temperature 98.1 F Pulse Rate 69 66 Respiratory 18 26 H 18 Rate Blood Pressure 111/74 117/81 O2 Sat by Pulse 94 97 Oximetry 07/24/21 07/24/21 08:30 08:40 Temperature Pulse Rate 69 92 H Respiratory 18 14 Rate Blood Pressure 121/81 121/81 O2 Sat by Pulse 97 97 Oximetry - Lab 07/24/21 04:41 07/24/21 04:41 Most recent lab results ABG pH 7.534 pH Units (7.350-7.450) H 07/24/21 03:29 ABG pCO2 22.4 mm Hg 07/24/21 03:29 ABG pO2 80.2 mm Hg (80.0-90.0) 07/24/21 03:29 ABG HCO3 18.5 mmol/L (20.0-26.0) L 07/24/21 03:29 ABG O2 Saturation 95.8 % (95.0-99.0) 07/24/21 03:29 Calcium 8.1 mg/dL (8.4-10.2) L 07/24/21 04:41 Phosphorus 3.70 mg/dL (2.5-4.5) D 07/24/21 04:41 Magnesium 2.20 mg/dL (1.7-2.3) 07/24/21 04:41 Medications & Allergies - Medications Allergies/Adverse Reactions: Allergies No Known Allergies Allergy (Unverified 07/22/21 21:01) Active Medications: Generic Name Dose Route Start Last Admin Trade Name Freq PRN Reason Stop Dose Admin Acetaminophen 650 mg 07/22/21 21:57 Acetaminophen 650 Mg Rect Supp SC Q6H PRN Pain MILD(1-3)/Fever >100.5/BERNAL Dextrose 0 ml 07/22/21 20:12 Dextrose 50% In Water (25gm) 50 Ml Syringe IV Q30MIN PRN Hypoglycemia Protocol Famotidine 20 mg 07/22/21 22:00 07/23/21 21:10 Famotidine 20 Mg/2 Ml Inj IV 20 mg BID ROMERO Administration Fentanyl 50 mcg 07/22/21 18:46 Fentanyl 100 Mcg/2 Ml Inj IV Q10MIN PRN ANALGESIA Heparin Sodium (Porcine) 5,000 unit 07/23/21 06:00 07/24/21 05:17 Heparin 5,000 Unit/1 Ml Vial SUB-Q 5,000 unit Q8HR ROMERO Administration Hydrophilic Ointment 1 applic 07/22/21 18:46 Lip Therapy Vaseline TP Q2HR PRN Dry Lips Propofol 1,000 mg in 100 mls @ 2.418 mls/hr 07/22/21 22:00 07/24/21 03:00 Diprivan 10 Mg/Ml IV 25 mcg/kg/min TITR ROMERO 12.09 mls/hr Titration Protocol 5 MCG/KG/MIN Fentanyl Citrate 2,000 mcg in 100 mls @ 4.03 mls/hr 07/22/21 22:00 07/24/21 07:35 Fentanyl Drip Premix IV 0 mcg/kg/hr TITR ROMERO 0 mls/hr Titration Protocol 1 MCG/KG/HR Insulin Human Regular 100 100 mls @ 1 mls/hr 07/22/21 22:00 07/24/21 07:15 units/ Sodium Chloride IV 2 units/hr TITR ROMERO 2 mls/hr Titration Protocol 1 UNITS/HR Potassium Chloride/Dextrose/Sod Cl 20 meq in 1,000 mls @ 125 mls/hr 07/22/21 22:00 07/24/21 02:00 D5w/0.45% Nacl/Kcl 20 Meq IV 125 mls/hr DIRECT ROMERO Administration Levetiracetam 500 mg/ Dextrose 105 mls @ 400 mls/hr 07/23/21 10:00 07/23/21 21:10 IV 400 mls/hr Q12HR ROMERO Administration Ceftriaxone Sodium 1 gm in 50 mls @ 100 mls/hr 07/23/21 10:00 07/23/21 10:20 Rocephin/Ns 1 Gm/50 Ml IV 07/25/21 09:59 Infused Q24HR ROMERO Infusion Protocol Dexmedetomidine HCl 200 mcg/ 50 mls @ 3.825 mls/hr 07/23/21 20:00 07/24/21 07:30 Sodium Chloride IV 0.3 mcg/kg/hr TITRATE ROMERO 5.738 mls/hr Titration Protocol 0.2 MCG/KG/HR Lorazepam 2 mg 07/23/21 05:10 07/23/21 05:17 Lorazepam 2 Mg/Ml Vial IV 2 mg Q1H PRN Administration CIWA-Ar 8-15 Lorazepam 4 mg 07/23/21 05:10 07/24/21 07:32 Lorazepam 2 Mg/Ml Vial IV 4 mg Q1H PRN Administration CIWA-Ar 16-25 Lorazepam 4 mg 07/23/21 05:10 Lorazepam 2 Mg/Ml Vial IV Q15MIN PRN CIWA-Ar >25 Magnesium Hydroxide 30 ml 07/22/21 21:57 Magnesium Hydroxide (Mom) Oral Liqd Udc PO Q4H PRN Constipation Morphine Sulfate 2 mg 07/22/21 21:57 07/24/21 07:32 Morphine 2 Mg/1 Ml Inj IV 2 mg Q4H PRN Administration Pain, Moderate (4-6) Morphine Sulfate 4 mg 07/22/21 21:57 Morphine 4 Mg/1 Ml Inj IV Q4H PRN Pain , Severe (7-10) Multi-Ingred Cream/Lotion/Oil/Oint 1 applic 07/22/21 18:46 Mineral Oil/Petrolatum, White Ophth Oint 3.5 Gm OU Q4HR PRN Dry Eye(s) Senna/Docusate Sodium 1 tab 07/22/21 22:00 07/23/21 21:11 Sennosides/Docusate Sodium 8.6/50 Mg Tab FEEDTUBE Not Given BID ROMERO Sodium Chloride 10 ml 07/22/21 22:00 07/23/21 21:10 Sodium Chloride 0.9% 10 Ml Flush Syringe IV 10 ml BID ROMERO Administration Sodium Chloride 10 ml 07/22/21 21:57 Sodium Chloride 0.9% 10 Ml Flush Syringe IV PRN PRN LINE FLUSH
--- NOTE | 2021-07-24 08:59 | Gastroenterology Progress Note ---
Assessment and Plan - Patient Problems (1) Transaminitis Current Visit: Yes Status: Acute Plan to address problem: - The liver enzymes are markedly improved this AM, and likely from a combination of EtOH, acute ischemic injury, and malnutrition. - OK to extubate and advance diet per our service. - Will follow up on Ultrasound but no other testing planned at present. - Avoid hypotension/hepatotoxic meds. - We will sign off; please call if needed. Subjective Date of service: 07/24/21 Principal diagnosis: Abnl LFTs Interval history: The patient has been stable overnight without fevers or cardiac issues. Remains on the vent. No reports of GI bleeding, and no seizure activity this AM. Objective - Constitutional Vitals: Temp Pulse Resp BP Pulse Ox 98.1 F 92 H 14 121/81 97 07/24/21 08:00 07/24/21 08:40 07/24/21 08:40 07/24/21 08:40 07/24/21 08:40 General appearance: other (On vent/sedated) - Respiratory Respiratory effort: normal Respiratory: bilateral: CTA (Vent) - Cardiovascular Rhythm: regular Heart Sounds: Present: S1 & S2 - Gastrointestinal General gastrointestinal: Present: soft, non-tender, non-distended - Labs CBC & Chem 7: 07/24/21 04:41 07/24/21 04:41 Labs: Laboratory Results - last 24 hr 07/23/21 07/23/21 07/23/21 09:25 10:27 10:32 WBC RBC Hgb Hct MCV MCH MCHC RDW Plt Count ABG pH ABG pCO2 ABG pO2 ABG HCO3 ABG O2 Saturation ABG Base Excess ABG Hemoglobin ABG Carboxyhemoglobin ABG Methemoglobin Oxyhemoglobin FiO2 Sodium Potassium Chloride Carbon Dioxide Anion Gap BUN Creatinine Estimated GFR BUN/Creatinine Ratio Glucose POC Glucose 142 H 136 H Lactic Acid 4.10 H* Calcium Phosphorus Magnesium Ferritin Total Bilirubin AST ALT Alkaline Phosphatase Total Protein Albumin Albumin/Globulin Ratio TSH 07/23/21 07/23/21 07/23/21 10:32 11:32 12:36 WBC RBC Hgb Hct MCV MCH MCHC RDW Plt Count ABG pH ABG pCO2 ABG pO2 ABG HCO3 ABG O2 Saturation ABG Base Excess ABG Hemoglobin ABG Carboxyhemoglobin ABG Methemoglobin Oxyhemoglobin FiO2 Sodium 147 H Potassium 3.0 L Chloride 110.0 H Carbon Dioxide 20 L Anion Gap 20 BUN 16 Creatinine 1.2 Estimated GFR > 60 BUN/Creatinine Ratio 13 Glucose 145 H POC Glucose 124 H 125 H Lactic Acid Calcium 9.2 Phosphorus 0.90 L* D Magnesium 1.90 Ferritin Total Bilirubin AST ALT Alkaline Phosphatase Total Protein Albumin Albumin/Globulin Ratio [facility] 07/23/21 07/23/21 07/23/21 13:33 14:33 15:36 WBC RBC Hgb Hct MCV MCH MCHC RDW Plt Count ABG pH ABG pCO2 ABG pO2 ABG HCO3 ABG O2 Saturation ABG Base Excess ABG Hemoglobin ABG Carboxyhemoglobin ABG Methemoglobin Oxyhemoglobin FiO2 Sodium Potassium Chloride Carbon Dioxide Anion Gap BUN Creatinine Estimated GFR BUN/Creatinine Ratio Glucose POC Glucose 111 H 121 H 124 H Lactic Acid Calcium Phosphorus Magnesium Ferritin Total Bilirubin AST ALT Alkaline Phosphatase Total Protein Albumin Albumin/Globulin Ratio [facility] 07/23/21 07/23/21 07/23/21 15:47 15:47 16:46 WBC RBC Hgb Hct MCV MCH MCHC RDW Plt Count ABG pH ABG pCO2 ABG pO2 ABG HCO3 ABG O2 Saturation ABG Base Excess ABG Hemoglobin ABG Carboxyhemoglobin ABG Methemoglobin Oxyhemoglobin FiO2 Sodium 148 H Potassium 3.0 L Chloride 112.8 H Carbon Dioxide 19 L Anion Gap 19 BUN 16 Creatinine 1.4 H Estimated GFR > 60 BUN/Creatinine Ratio 11 Glucose 135 H POC Glucose 126 H Lactic Acid 4.20 H* Calcium 8.8 Phosphorus 2.70 D Magnesium 1.80 Ferritin Total Bilirubin AST ALT Alkaline Phosphatase Total Protein Albumin Albumin/Globulin Ratio [facility] 07/23/21 07/23/21 07/23/21 17:45 18:28 20:27 WBC RBC Hgb Hct MCV MCH MCHC RDW Plt Count ABG pH ABG pCO2 ABG pO2 ABG HCO3 ABG O2 Saturation ABG Base Excess ABG Hemoglobin ABG Carboxyhemoglobin ABG Methemoglobin Oxyhemoglobin FiO2 Sodium Potassium Chloride Carbon Dioxide Anion Gap BUN Creatinine Estimated GFR BUN/Creatinine Ratio Glucose POC Glucose 139 H 144 H 154 H Lactic Acid Calcium Phosphorus Magnesium Ferritin Total Bilirubin AST ALT Alkaline Phosphatase Total Protein Albumin Albumin/Globulin Ratio [facility] 07/23/21 07/23/21 07/23/21 21:36 22:22 22:37 WBC RBC Hgb Hct MCV MCH MCHC RDW Plt Count ABG pH ABG pCO2 ABG pO2 ABG HCO3 ABG O2 Saturation ABG Base Excess ABG Hemoglobin ABG Carboxyhemoglobin ABG Methemoglobin Oxyhemoglobin FiO2 Sodium 145 Potassium 3.7 D Chloride 115.2 H Carbon Dioxide 18 L Anion Gap 16 BUN 14 Creatinine 1.5 H Estimated GFR > 60 BUN/Creatinine Ratio 9 Glucose 155 H POC Glucose 133 H 130 H Lactic Acid Calcium 8.4 Phosphorus Magnesium Ferritin Total Bilirubin AST ALT Alkaline Phosphatase Total Protein Albumin Albumin/Globulin Ratio [facility] 07/23/21 07/24/21 07/24/21 23:46 00:16 00:29 WBC RBC Hgb Hct MCV MCH MCHC RDW Plt Count ABG pH ABG pCO2 ABG pO2 ABG HCO3 ABG O2 Saturation ABG Base Excess ABG Hemoglobin ABG Carboxyhemoglobin ABG Methemoglobin Oxyhemoglobin FiO2 Sodium Potassium Chloride Carbon Dioxide Anion Gap BUN Creatinine Estimated GFR BUN/Creatinine Ratio Glucose POC Glucose 111 H 155 H Lactic Acid 1.40 Calcium Phosphorus Magnesium Ferritin Total Bilirubin AST ALT Alkaline Phosphatase Total Protein Albumin Albumin/Globulin Ratio [facility] 07/24/21 07/24/21 07/24/21 02:01 03:11 03:29 WBC RBC Hgb Hct MCV MCH MCHC RDW Plt Count ABG pH 7.534 H ABG pCO2 22.4 ABG pO2 80.2 ABG HCO3 18.5 L ABG O2 Saturation 95.8 ABG Base Excess -2.6 L ABG Hemoglobin 11.3 L ABG Carboxyhemoglobin 0.3 ABG Methemoglobin 0.3 Oxyhemoglobin 95.2 FiO2 30 Sodium Potassium Chloride Carbon Dioxide Anion Gap BUN Creatinine Estimated GFR BUN/Creatinine Ratio Glucose POC Glucose 140 H 159 H Lactic Acid Calcium Phosphorus Magnesium Ferritin Total Bilirubin AST ALT Alkaline Phosphatase Total Protein Albumin Albumin/Globulin Ratio [facility] 07/24/21 07/24/21 07/24/21 04:06 04:41 04:41 WBC 10.6 RBC 3.19 L Hgb 11.0 L Hct 33.5 L D MCV 105 H MCH 35 H MCHC 33 RDW 14.7 Plt Count 219 ABG pH ABG pCO2 ABG pO2 ABG HCO3 ABG O2 Saturation ABG Base Excess ABG Hemoglobin ABG Carboxyhemoglobin ABG Methemoglobin Oxyhemoglobin FiO2 Sodium 145 Potassium 3.9 Chloride 114.8 H Carbon Dioxide 18 L Anion Gap 16 BUN 14 Creatinine 1.4 H Estimated GFR > 60 BUN/Creatinine Ratio 10 Glucose 178 H POC Glucose 167 H Lactic Acid Calcium 8.1 L Phosphorus 3.70 D Magnesium 2.20 Ferritin Total Bilirubin 0.60 AST 62 H ALT 47 Alkaline Phosphatase 108 Total Protein 6.6 D Albumin 2.8 L Albumin/Globulin Ratio 0.7 TSH 07/24/21 07/24/21 07/24/21 04:41 04:41 05:13 WBC RBC Hgb Hct MCV MCH MCHC RDW Plt Count ABG pH ABG pCO2 ABG pO2 ABG HCO3 ABG O2 Saturation ABG Base Excess ABG Hemoglobin ABG Carboxyhemoglobin ABG Methemoglobin Oxyhemoglobin FiO2 Sodium Potassium Chloride Carbon Dioxide Anion Gap BUN Creatinine Estimated GFR BUN/Creatinine Ratio Glucose POC Glucose 162 H Lactic Acid Calcium Phosphorus Magnesium Ferritin 657.6 H Total Bilirubin AST ALT Alkaline Phosphatase Total Protein Albumin Albumin/Globulin Ratio TSH 2.290 07/24/21 07/24/21 06:01 07:15 WBC RBC Hgb Hct MCV MCH MCHC RDW Plt Count ABG pH ABG pCO2 ABG pO2 ABG HCO3 ABG O2 Saturation ABG Base Excess ABG Hemoglobin ABG Carboxyhemoglobin ABG Methemoglobin Oxyhemoglobin FiO2 Sodium Potassium Chloride Carbon Dioxide Anion Gap BUN Creatinine Estimated GFR BUN/Creatinine Ratio Glucose POC Glucose 173 H 151 H Lactic Acid Calcium Phosphorus Magnesium Ferritin Total Bilirubin AST ALT Alkaline Phosphatase Total Protein Albumin Albumin/Globulin Ratio TSH
--- NOTE | 2021-07-24 09:11 | Ultrasound Report ---
LIMITED RUQ ABDOMINAL ULTRASOUND INDICATION: acute liver disease. COMPARISON: No relevant prior imaging study available. FINDINGS: Pancreas: Obscured by bowel gas. Abdominal Aorta: The proximal and mid aorta are measuring up to 3.3 cm. The distal aorta is obscured. IVC: No significant abnormality. Liver: The liver measures 18.4 cm in length. The liver is mildly enlarged and echogenic suggesting s teatosis. No obvious focal liver lesion. Normal hepatopedal blood flow in the main portal vein. Gallbladder: No significant abnormality. Bile ducts: No significant abnormality. Common bile duct measures 3 mm. Right kidney: No significant abnormality visualized. Free fluid: None. Additional Findings: None. IMPRESSION: Slightly limited exam secondary to bowel gas. The pancreas and distal aorta are obscured. The liver is enlarged and echogenic suggesting hepatic steatosis. Unremarkable biliary system. Signer Name: Bladimir Niño Jr, MD Signed: 07/24/2021 9:06 AM Workstation Name: [id number]
[2021-07-24] MEDS: levETIRAcetam 500 MG in DEXTROSE 5% IN WATER 100 ML IV SCH ×2 (09:12→21:20)
[2021-07-24] MEDS: cefTRIAXone/NS 1 GM/50 ML 1 GM/50 ML BAG IV SCH (09:36)
[2021-07-24] MEDS: FAMOTIDINE 20 MG/2 ML INJ IV SCH ×2 (09:37→21:19)
[2021-07-24] MEDS: SENNOSIDES/DOCUSATE SODIUM 8.6/50 MG TAB FEEDTUBE SCH ×2 (09:41→21:20)
[2021-07-24] MEDS ORDERED: INSULIN GLARGINE 100 UNITS/ML SUB-Q SCH (10:00)
--- NOTE | 2021-07-24 10:13 | XRay Report ---
CHEST 1 VIEW 07/24/2021 9:04 AM INDICATION / CLINICAL INFORMATION: follow up respiratory failure. COMPARISON: 07/23/2021 FINDINGS: SUPPORT DEVICES: Endotracheal tube is in stable position. HEART / MEDIASTINUM: Stable. LUNGS / PLEURA: Lung volumes are low with increased interstitial markings. New patchy opacity at left lung base. ADDITIONAL FINDINGS: No significant additional findings. IMPRESSION: 1. New patchy opacity at left lung base concerning for pneumonia versus atelectasis. 2. Bilateral mild increased interstitial markings could represent low lung volumes versus mild inters titial edema. Signer Name: Enoch Teixeira MD Signed: 07/24/2021 10:08 AM Workstation Name: [id number]
[2021-07-24] MEDS: INSULIN LISPRO 100 UNIT/ML SUB-Q SCH ×2 (12:59→17:45)
--- NOTE | 2021-07-24 17:24 | Progress Note ---
Assessment and Plan Assessment and plan: This is a 46-year-old female with EtOH, marijuana abuse and seizure disorder admitted post multiple seizures, DKA, acute encephalopathy and acute hypoxic respiratory distress. Neuro: Acute metabolic encephalopathy, seizure disorder, EtOH abuse -CT head with no acute intracranial abnormalities -EEG pending -Neurology consult, appreciate recommendations -Continue [facility] protocol -Maintain sleep-wake cycle -Avoid delirium -MRI brain with contrast pending -Seizure/aspiration precautions Cardio: S/p SVT -Patient had SVT on route with EMS which was terminated with adenosine -Blood pressure monitor per protocol Respiratory: Acute hypoxic respiratory failure -Patient was intubated on 07/22 for airway protection with 7.50 ETT at 24 the lips in the ED -CCM consulted, appreciate recommendations -A.m. vent settings: AC rate 18, tidal volume 500, PEEP 6, FiO2 30% -Placed on SBT by RT this a.m. at 840 -Patient was extubated today on 07/24 to nasal cannula -SPO2 monitoring -Pulmonary hygiene GI: Transaminitis (resolving) -GI consulted, appreciate recommendations -Signed off today -Transaminitis likely secondary to EtOH abuse, acute ischemic injury and malnutrition -Abdominal ultrasound pending -Avoid hypotension/epigastric medications -Patient failed bedside swallow eval -ST eval pending -PPI -BR: Senokot -24-hour +413 mL : Acute kidney injury likely secondary to acute tubular necrosis, hypokalemia, hypophosphatemia, metabolic acidosis, hyperchloremia -Nephrology consulted, appreciate recommendations -Received renal contrast on 07/22 -MIVF -Trend BMP -Per nephrology: Likely baseline CKD -Avoid nephrotic medications -Renally dose medications -Renal ultrasound pending Endo: DKA -S/p insulin drip -Currently on IV fluid with dextrose awaiting ST evaluation -Avoid hypoglycemia -Long-acting insulin x1 -Accu-Cheks every 6 -Hemoglobin A1c 9.6 ID: SIRS, lactic acidosis (resolved) -Presented with leukocytosis and acute hypoxic respiratory failure -Follow culture data -Follow-up blood cultures -Empiric antibiotics x1 in the ED Heme: Leukocytosis -SCDs to bilateral proximal in bed - trend CBC -Transfuse hemoglobin less than 7 -Lovenox subcu The high probability of a clinically significant, sudden or life threatening deterioration of the [multiple] system(s) required my full and direct attention, intervention and personal management. The aggregate critical care time was [60] minutes. This time is in addition to time spent performing reported procedures but includes the following: [x] Data Review and interpretation [x] Patient assessment and monitoring of vital signs [x] Documentation [x] Medication orders and management Disposition Plan: icu Total Time Spent with Patient (Minutes): 60 History Interval history: This is a 46-year-old male with seizures, EtOH and marijuana abuse presented to emergency department on 07/22 via EMS for evaluation of multiple seizures with the least one witnessed seizure. Patient had SVT with EMS which was terminated with 6 mg of adenosine, Accu-Cheks in the field was said to be "high". Upon arrival to the emergency department patient was tachycardic and hypertensive with copious secretions in his oral cavity and was subsequently intubated in the emergency department. Work-up in the emergency department revealed leukocytosis, hyperkalemia, metabolic acidosis, elevated blood glucose of 941, transaminitis, elevated BUN/creatinine and anion gap. CXR, CT head and CTA head/neck were negative. Patient was admitted to the hospitalist service with consults to neurology, CCM, nephrology and GI. 07/23/21- Patient remains intubated and sedate, RASS -4. Remains on DKA protocol, plan to transition to SubQ insulin once gap is closed. Renal function is improving and electrolytes were repleted. Will continue cont. IVF and monitor and replaced eletrolytes as needed. Serial BMP, phosp, and mag ordered. 07/24: Patient was extubated today. Awaiting ST evaluation. Insulin drip discontinued today and given one-time dose of long-acting insulin and place on SSI. Will start long-acting insulin scheduled once p.o. intake evaluated. Hospitalist Physical - Constitutional Vitals: Temp Pulse Resp BP Pulse Ox 99.6 F 91 H 17 155/102 95 07/24/21 16:00 07/24/21 17:00 07/24/21 17:00 07/24/21 17:00 07/24/21 17:00 General appearance: Present: no acute distress, well-nourished, other (Intubated and Sedated) - EENT Eyes: Present: PERRL, EOM intact ENT: hearing intact, clear oral mucosa - Neck Neck: Present: normal ROM - Respiratory Respiratory effort: normal Respiratory: bilateral: diminished - Cardiovascular Rhythm: regular Heart Sounds: Present: S1 & S2. Absent: systolic murmur, diastolic murmur - Extremities Extremities: no ischemia, pulses intact, pulses symmetrical, No edema, normal temperature, normal color, Full ROM Peripheral Pulses: within normal limits - Abdominal General gastrointestinal: soft, non-tender, non-distended, normal bowel sounds - Integumentary Integumentary: Present: warm, dry - Psychiatric Psychiatric: cooperative - Neurologic Neurologic: CNII-XII intact, no focal deficits, moves all extremities - Allied Health Allied health notes reviewed: nursing, RT, social work HEART Score - HEART Score Troponin: Troponin T < 0.010 ng/mL (0.00-0.029) 07/22/21 19:18 Results - Labs CBC & Chem 7: 07/24/21 04:41 07/24/21 04:41 Labs: Laboratory Last Values WBC 10.6 K/mm3 (4.5-11.0) 07/24/21 04:41 RBC 3.19 M/mm3 (3.65-5.03) L 07/24/21 04:41 Hgb 11.0 gm/dl (11.8-15.2) L 07/24/21 04:41 Hct 33.5 % (35.5-45.6) L D 07/24/21 04:41 MCV 105 fl (84-94) H 07/24/21 04:41 MCH 35 pg (28-32) H 07/24/21 04:41 MCHC 33 % (32-34) 07/24/21 04:41 RDW 14.7 % (13.2-15.2) 07/24/21 04:41 Plt Count 219 K/mm3 (140-440) 07/24/21 04:41 [place] % (Auto) 5.6 % (0.0-7.3) 07/22/21 19:18 Baso # (Auto) 0.2 K/mm3 (0.0-0.1) H 07/22/21 19:18 Add Manual Diff Complete 07/22/21 19:18 Total Counted 100 07/22/21 19:18 Seg Neutrophils % 78.4 % (40.0-70.0) H 07/22/21 19:18 Seg Neuts % (Manual) 75.0 % (40.0-70.0) H 07/22/21 19:18 Band Neutrophils % 4.0 % 07/22/21 19:18 Lymphocytes % (Manual) 17.0 % (13.4-35.0) 07/22/21 19:18 Monocytes % (Manual) 3.0 % (0.0-7.3) 07/22/21 19:18 Eosinophils % (Manual) 1.0 % (0.0-4.3) 07/22/21 19:18 Nucleated RBC % Not Reportable 07/22/21 19:18 Seg Neutrophils # Man 13.3 K/mm3 (1.8-7.7) H 07/22/21 19:18 Band Neutrophils # 0.7 K/mm3 07/22/21 19:18 Lymphocytes # (Manual) 3.0 K/mm3 (1.2-5.4) 07/22/21 19:18 Abs React Lymphs (Man) 0.0 K/mm3 07/22/21 19:18 Monocytes # (Manual) 0.5 K/mm3 (0.0-0.8) 07/22/21 19:18 Eosinophils # (Manual) 0.2 K/mm3 (0.0-0.4) 07/22/21 19:18 Basophils # (Manual) 0.0 K/mm3 (0.0-0.1) 07/22/21 19:18 Metamyelocytes # 0.0 K/mm3 07/22/21 19:18 Myelocytes # 0.0 K/mm3 07/22/21 19:18 Promyelocytes # 0.0 K/mm3 07/22/21 19:18 Blast Cells # 0.0 K/mm3 07/22/21 19:18 WBC Morphology Not Reportable 07/22/21 19:18 Hypersegmented Neuts Not Reportable 07/22/21 19:18 Hyposegmented Neuts Not Reportable 07/22/21 19:18 Hypogranular Neuts Not Reportable 07/22/21 19:18 Smudge Cells Not Reportable 07/22/21 19:18 Toxic Granulation Not Reportable 07/22/21 19:18 Toxic Vacuolation Not Reportable 07/22/21 19:18 Dohle Bodies Not Reportable 07/22/21 19:18 Pelger-Huet Anomaly Not Reportable 07/22/21 19:18 Jacek Rods Not Reportable 07/22/21 19:18 Platelet Estimate Consistent w auto 07/22/21 19:18 Clumped Platelets Not Reportable 07/22/21 19:18 Plt Clumps, EDTA Not Reportable 07/22/21 19:18 Large Platelets Not Reportable 07/22/21 19:18 Giant Platelets Not Reportable 07/22/21 19:18 Platelet Satelliting Not Reportable 07/22/21 19:18 Plt Morphology Comment Not Reportable 07/22/21 19:18 RBC Morphology Not Reportable 07/22/21 19:18 Dimorphic RBCs Not Reportable 07/22/21 19:18 Polychromasia Not Reportable 07/22/21 19:18 Hypochromasia Not Reportable 07/22/21 19:18 Poikilocytosis Not Reportable 07/22/21 19:18 Anisocytosis 1+ 07/22/21 19:18 Microcytosis Not Reportable 07/22/21 19:18 Macrocytosis 1+ 07/22/21 19:18 Spherocytes Not Reportable 07/22/21 19:18 Pappenheimer Bodies Not Reportable 07/22/21 19:18 Sickle Cells Not Reportable 07/22/21 19:18 Target Cells Not Reportable 07/22/21 19:18 Tear Drop Cells Not Reportable 07/22/21 19:18 Ovalocytes Not Reportable 07/22/21 19:18 Helmet Cells Not Reportable 07/22/21 19:18 Vega-Gazelle Bodies Not Reportable 07/22/21 19:18 [place] Rings Not Reportable 07/22/21 19:18 [place] Cells Not Reportable 07/22/21 19:18 Bite Cells Not Reportable 07/22/21 19:18 Crenated Cell Not Reportable 07/22/21 19:18 Elliptocytes Not Reportable 07/22/21 19:18 Acanthocytes (Spur) Not Reportable 07/22/21 19:18 Rouleaux Not Reportable 07/22/21 19:18 Hemoglobin C Crystals Not Reportable 07/22/21 19:18 Schistocytes Not Reportable 07/22/21 19:18 Malaria parasites Not Reportable 07/22/21 19:18 Dieudonne Bodies Not Reportable 07/22/21 19:18 Hem Pathologist Commnt No 07/22/21 19:18 PT 17.4 Sec. (12.2-14.9) H 07/22/21 19:18 INR 1.29 (0.87-1.13) H 07/22/21 19:18 APTT 28.3 Sec. (24.2-36.6) 07/22/21 19:18 Thrombin Time 18.0 Sec. (15.1-19.6) 07/22/21 19:18 ABG pH 7.534 pH Units (7.350-7.450) H 07/24/21 03:29 POC ABG pCO2 44.7 mmHg (32.0-48.0) 07/22/21 21:09 ABG pCO2 22.4 mm Hg 07/24/21 03:29 POC ABG pO2 189.2 mmHg (83-108) H 07/22/21 21:09 ABG pO2 80.2 mm Hg (80.0-90.0) 07/24/21 03:29 POC ABG HCO3 18.8 07/22/21 21:09 ABG HCO3 18.5 mmol/L (20.0-26.0) L 07/24/21 03:29 ABG O2 Saturation 95.8 % (95.0-99.0) 07/24/21 03:29 POC ABG Base Excess -8.3 07/22/21 21:09 ABG Base Excess -2.6 mmol/L (-2.0-3.0) L 07/24/21 03:29 ABG Hemoglobin 11.3 gm/dl (14.0-18.0) L 07/24/21 03:29 ABG Oxyhemoglobin 98.7 (94-98) H 07/22/21 21:09 ABG Carboxyhemoglobin 0.3 % (0.0-5.0) 07/24/21 03:29 ABG Methemoglobin 0.3 % (0.0-1.5) 07/24/21 03:29 ABG Sodium 141.6 mmol/L (136.0-145.0) 07/22/21 21:09 ABG Potassium 4.6 mmol/L (3.40-4.50) H 07/22/21 21:09 ABG Chloride 97.0 mmol/L (98-107) L 07/22/21 21:09 VBG pH 7.030 (7.320-7.420) L* 07/22/21 19:18 Oxyhemoglobin 95.2 % (95.0-99.0) 07/24/21 03:29 Carboxyhemoglobin 0.3 (0.5-1.5) L 07/22/21 21:09 FiO2 30 % 07/24/21 03:29 FiO2 % 100.0 07/22/21 21:09 Sodium 145 mmol/L (137-145) 07/24/21 04:41 Potassium 3.9 mmol/L (3.6-5.0) 07/24/21 04:41 Chloride 114.8 mmol/L (98-107) H 07/24/21 04:41 Carbon Dioxide 18 mmol/L (22-30) L 07/24/21 04:41 Anion Gap 16 mmol/L 07/24/21 04:41 BUN 14 mg/dL (9-20) 07/24/21 04:41 Creatinine 1.4 mg/dL (0.8-1.3) H 07/24/21 04:41 Estimated GFR > 60 ml/min 07/24/21 04:41 BUN/Creatinine Ratio 10 % 07/24/21 04:41 Glucose 178 mg/dL (75-100) H 07/24/21 04:41 POC Glucose 145 mg/dL (70-105) H 07/24/21 11:48 Hemoglobin A1c 9.8 % (4-6) H 07/22/21 22:46 Lactic Acid 1.40 mmol/L (0.7-2.0) 07/24/21 00:16 Calcium 8.1 mg/dL (8.4-10.2) L 07/24/21 04:41 Phosphorus 3.70 mg/dL (2.5-4.5) D 07/24/21 04:41 Magnesium 2.20 mg/dL (1.7-2.3) 07/24/21 04:41 Ferritin 657.6 ng/mL (30.0-300.0) H 07/24/21 04:41 Total Bilirubin 0.60 mg/dL (0.1-1.2) 07/24/21 04:41 AST 62 units/L (5-40) H 07/24/21 04:41 ALT 47 units/L (7-56) 07/24/21 04:41 Alkaline Phosphatase 108 units/L (35-129) 07/24/21 04:41 Total Creatine Kinase 166 units/L (55-170) 07/22/21 19:18 CK-MB (CK-2) 3.2 ng/mL (0.0-4.0) 07/22/21 19:18 CK-MB (CK-2) Rel Index 1.9 (0-4) 07/22/21 19:18 Troponin T < 0.010 ng/mL (0.00-0.029) 07/22/21 19:18 Total Protein 6.6 g/dL (6.3-8.2) D 07/24/21 04:41 Albumin 2.8 g/dL (3.9-5) L 07/24/21 04:41 Albumin/Globulin Ratio 0.7 % 07/24/21 04:41 TSH 2.290 mlU/mL (0.270-4.200) 07/24/21 04:41 Arterial Blood Ionized Calcium 5.6 mg/dL (4.6-5.3) H 07/22/21 21:09 Urine Color Straw (Yellow) 07/22/21 20:01 Urine Turbidity Clear (Clear) 07/22/21 20:01 Urine pH 6.0 (5.0-7.0) 07/22/21 20:01 Ur Specific [place] 1.033 (1.003-1.030) H 07/22/21 20:01 Urine Protein 100 mg/dl mg/dL (Negative) 07/22/21 20:01 Urine Glucose (UA) >=500 mg/dL (Negative) 07/22/21 20:01 Urine Ketones Neg mg/dL (Negative) 07/22/21 20:01 Urine Blood Mod (Negative) 07/22/21 20: Urine Nitrite Neg (Negative) 07/22/21 20:01 Urine Bilirubin Neg (Negative) 07/22/21 20:01 Urine Urobilinogen < 2.0 mg/dL (<2.0) 07/22/21 20:01 Ur Leukocyte Esterase Neg (Negative) 07/22/21 20:01 Urine WBC (Auto) 2.0 /HPF (0.0-6.0) 07/22/21 20:01 Urine RBC (Auto) 1.0 /HPF (0.0-6.0) 07/22/21 20:01 Urine Bacteria (Auto) 1+ /HPF (Negative) 07/22/21 20:01 Urine Mucus Few /HPF 07/22/21 20:01 Salicylates 0.6 mg/dL (2.8-20.0) L 07/22/21 19:18 Urine Opiates Screen Negative 07/22/21 20:01 Urine Methadone Screen Negative 07/22/21 20:01 Acetaminophen 5.0 ug/mL (10.0-30.0) L 07/22/21 19:18 Ur Barbiturates Screen Negative 07/22/21 20:01 Ur Phencyclidine Scrn Negative 07/22/21 20:01 Ur Amphetamines Screen Negative 07/22/21 20:01 U Benzodiazepines Scrn Negative 07/22/21 20:01 Urine Cocaine Screen Negative 07/22/21 20:01 U Marijuana (THC) Screen Negative 07/22/21 20:01 Drugs of Abuse Note Disclamer 07/22/21 20:01 Plasma/Serum Alcohol < 0.01 % (0-0.07) 07/22/21 19:18 Microbiology: Microbiology 07/22/21 21:29 Peripheral/Venous Blood Culture - Preliminary NO GROWTH AFTER 24 HOURS 07/22/21 21:50 Peripheral/Venous Blood Culture - Preliminary NO GROWTH AFTER 24 HOURS 07/22/21 23:05 Tracheal Aspirate Sputum Culture - Preliminary [place]/IV: Voiding Method Indwelling Catheter Active Medications - Current Medications Current Medications: Generic Name Dose Route Start Last Admin Trade Name Freq PRN Reason Stop Dose Admin Acetaminophen 650 mg 07/22/21 21:57 Acetaminophen 650 Mg Rect Supp AR Q6H PRN Pain MILD(1-3)/Fever >100.5/BERNAL Dextrose 0 ml 07/22/21 20:12 Dextrose 50% In Water (25gm) 50 Ml Syringe IV Q30MIN PRN Hypoglycemia Protocol Famotidine 20 mg 07/22/21 22:00 07/24/21 09:37 Famotidine 20 Mg/2 Ml Inj IV 20 mg BID ROMERO Administration Heparin Sodium (Porcine) 5,000 unit 07/23/21 06:00 07/24/21 05:17 Heparin 5,000 Unit/1 Ml Vial SUB-Q 5,000 unit Q8HR ROMERO Administration Hydrophilic Ointment 1 applic 07/22/21 18:46 Lip Therapy Vaseline TP Q2HR PRN Dry Lips Potassium Chloride/Dextrose/Sod Cl 20 meq in 1,000 mls @ 125 mls/hr 07/22/21 22:00 07/24/21 09:37 D5w/0.45% Nacl/Kcl 20 Meq IV 125 mls/hr DIRECT ROMERO Administration Levetiracetam 500 mg/ Dextrose 105 mls @ 400 mls/hr 07/23/21 10:00 07/24/21 09:12 IV 400 mls/hr Q12HR ROMERO Administration Ceftriaxone Sodium 1 gm in 50 mls @ 100 mls/hr 07/23/21 10:00 07/24/21 09:36 Rocephin/Ns 1 Gm/50 Ml IV 07/25/21 09:59 100 mls/hr Q24HR ROMERO Administration Protocol Insulin Human Lispro 0 unit 07/24/21 12:00 07/24/21 12:59 Insulin Lispro 100 Unit/Ml SUB-Q Not Given Q6HR ROMERO Protocol Lorazepam 2 mg 07/23/21 05:10 07/23/21 05:17 Lorazepam 2 Mg/Ml Vial IV 2 mg Q1H PRN Administration CIWA-Ar 8-15 Lorazepam 4 mg 07/23/21 05:10 07/24/21 07:32 Lorazepam 2 Mg/Ml Vial IV 4 mg Q1H PRN Administration CIWA-Ar 16-25 Lorazepam 4 mg 07/23/21 05:10 Lorazepam 2 Mg/Ml Vial IV Q15MIN PRN CIWA-Ar >25 Magnesium Hydroxide 30 ml 07/22/21 21:57 Magnesium Hydroxide (Mom) Oral Liqd Udc PO Q4H PRN Constipation Morphine Sulfate 2 mg 07/22/21 21:57 07/24/21 07:32 Morphine 2 Mg/1 Ml Inj IV 2 mg Q4H PRN Administration Pain, Moderate (4-6) Morphine Sulfate 4 mg 07/22/21 21:57 Morphine 4 Mg/1 Ml Inj IV Q4H PRN Pain , Severe (7-10) Multi-Ingred Cream/Lotion/Oil/Oint 1 applic 07/22/21 18:46 Mineral Oil/Petrolatum, White Ophth Oint 3.5 Gm OU Q4HR PRN Dry Eye(s) Senna/Docusate Sodium 1 tab 07/22/21 22:00 07/24/21 09:41 Sennosides/Docusate Sodium 8.6/50 Mg Tab FEEDTUBE Not Given BID ROMERO Sodium Chloride 10 ml 07/22/21 22:00 07/24/21 09:38 Sodium Chloride 0.9% 10 Ml Flush Syringe IV 10 ml BID ROMERO Administration Sodium Chloride 10 ml 07/22/21 21:57 Sodium Chloride 0.9% 10 Ml Flush Syringe IV PRN PRN LINE FLUSH Nutrition/Malnutrition Assess - Dietary Evaluation Nutrition/Malnutrition Findings: Nutrition Notes Start: 07/23/21 09:29 Freq: Status: Active Protocol: Document 07/23/21 09:29 SARINA (Rec: 07/23/21 09:40 [id number]) Nutrition Notes Need for Assessment generated from: MD Order Initial or Follow up Assessment Current Diagnosis Acute Kidney Injury, Respiratory Failure Other Pertinent Diagnosis DKA, seizures, AMS, alcohol abuse, SIRS, transaminitis Current Diet NPO Labs/Tests A1c 9.8 Na 150 K 2.7 BG 181 Pertinent Medications Insulin ggt Propofol at 21.762 ml/hr ( 575kcal) KCl 10 mEq D5w/.45NS/20 mEq K at 125 ml/ hr Height 5 ft 8 in Weight 76.5 kg [place] Body Weight (kg) 70.00 BMI 25.6 Weight Status Appropriate Subjective/Other Information MD consult to eval nutritional intakes. Pt on vent. Burn Absent Trauma Absent Current % PO Negligible Minimum of two criteria No #1 Nutrition Diagnosis Inadequate oral intake Etiology respiratory failure As Evidenced by Signs and Symptoms pt on vent and unable to consume PO Is patient on ventilator? Yes Is Patient Ambulatory and/or Out of Bed No REE-([facility]-confined to bed) [phone] Calculation Used for Recommendations [facility] Additional Notes Protein: 1.2-2g/kg (92-153g) Fluid: 1 ml/kcal or per MD Nutrition Intervention Change Diet Order: Start TF when able Nutrition Support: Recommend: Glucerna 1.2 at 65 ml/hr Kcal 1,872 Protein (gm) 94 Fluid (mL) 1,256 Goal #1 Start TF or extubation and diet advancement Anticipated Discharge Needs: Unable to determine at this time Follow-Up By: 07/25/21 Additional Comments F/U: TF consult or POC
[2021-07-24] MEDS: LORazepam 2 MG/ML VIAL IV PRN (21:41)
[2021-07-25] MEDS: INSULIN LISPRO 100 UNIT/ML SUB-Q SCH ×5 (00:38→21:55)
[2021-07-25] MEDS ORDERED: hydrALAZINE 20 MG/1 ML INJ IV PRN (01:16)
[2021-07-25] MEDS: hydrALAZINE 20 MG/1 ML INJ IV PRN ×3 (01:44→20:18)
[2021-07-25 05:40] LABS: Hematocrit 36.6 % (35.5-45.6); Hemoglobin 11.9 gm/dl (11.8-15.2); Mean Corpuscular HGB Conc 33 % (32-34); Mean Corpuscular Volume 107 fl (84-94); Platelet Count 233 K/mm3 (140-440); Red Blood Count 3.43 M/mm3 (3.65-5.03); Red Cell Distribution Width 14.9 % (13.2-15.2)
[2021-07-25 05:56] LABS: BUN/Creatinine Ratio 10; Blood Urea Nitrogen 13 mg/dL (9-20); Hemolysis Index 4
[2021-07-25] MEDS: HEPARIN 5,000 UNIT/1 ML VIAL SUB-Q SCH ×3 (06:02→21:55)
[2021-07-25] MEDS: levETIRAcetam 500 MG in DEXTROSE 5% IN WATER 100 ML IV SCH ×2 (09:00→21:54)
[2021-07-25] MEDS: FAMOTIDINE 20 MG/2 ML INJ IV SCH (09:01)
[2021-07-25] MEDS: SENNOSIDES/DOCUSATE SODIUM 8.6/50 MG TAB FEEDTUBE SCH (09:02)
--- NOTE | 2021-07-25 10:45 | Magnetic Resonance Report ---
MRI BRAIN WITHOUT AND WITH CONTRAST INDICATION / CLINICAL INFORMATION: Seizure disorder. TECHNIQUE: Multiplanar, multisequence MR images of the brain were obtained. COMPARISON: Head CT on 07/22/2021 FINDINGS: BRAIN / INTRACRANIAL CONTENTS: No acute ischemia, acute hemorrhage, mass effect, midline shift, or hy drocephalus. No chronic infarct or significant atrophy. No significant demyelinating changes. No abn ormal enhancement. CRANIOCERVICAL JUNCTION: No significant abnormality. VASCULAR FLOW-VOIDS: No significant abnormality. ORBITS: No significant abnormality of visualized orbits. SINUSES / MASTOIDS: No significant abnormality of visualized sinuses and mastoid air cells. ADDITIONAL FINDINGS: None. IMPRESSION: 1. No findings to explain seizures or sequelae of seizures. Signer Name: Patricio Frederick MD Signed: 07/25/2021 10:41 AM Workstation Name: [id number]
[2021-07-25] MEDS ORDERED: DEXTROSE 50% IN WATER (25GM) 50 ML SYRINGE IV PRN (11:00)
[2021-07-25] MEDS: LORazepam 2 MG/ML VIAL IV PRN (11:00)
[2021-07-25] MEDS: INSULIN NPH/REGULAR 70/30 INJ SUB-Q SCH ×3 (11:33→18:35)
--- NOTE | 2021-07-25 11:41 | Progress Note ---
Assessment and Plan Acute Hypoxemic Respiratory Failure Acute Metabolic Encephalopathy Seizure in the setting of alcohol use disorder Diabetic ketoacidosis ETOH abuse Acute Kidney Injury most likely ATN Hypokalemia Hypophosphatemia SIRS (systemic inflammatory response syndrome) Leukocytosis Lactic Acidosis - CIWA protocol - prn supplemental oxygen to keep O2 sats > 90% - prn bronchodilators (ZAHRA) with pulm hygiene per RT - avoid nephrotoxins, renally dose all medications - continue mobility protocols to prevent pressure ulcers - PT/OT as tolerated - Wound care per RN/WCT - accuchecks with glycemic control per SSI for target blood glucose < 180 mg/dL - tobacco abstinence strongly counseled at the bedside - home oxygen evaluation at discharge - GI & VTE prophylaxis - Flu & pneumovax per protocol - prn analgesia per pain score - continue other care per attending / other consultants ... re-evaluate in am & prn Subjective Date of service: 07/25/21 Principal diagnosis: Acute Hypoxemic Resp Failure; DKA; AMS; Seizures; QAMAR; SIRS Interval history: Patient is seen today for: Acute Hypoxemic Respiratory Failure; DKA; Acute Metabolic Encephalopathy; Seizures; QAMAR; SIRS Seen and examined at bedside; 24hour events reviewed; nursing and respiratory care staff consulted; no adverse overnight events reported to me; resting in bed; doing better; no active seizures; denies N/V/F/C Objective Vital Signs - 12hr 07/25/21 07/25/21 07/25/21 00:00 00:30 01:00 Temperature 97.7 F Pulse Rate 91 H 91 H 89 Pulse Rate [ 91 H From Monitor] Respiratory 17 16 16 Rate Blood Pressure 159/109 157/121 174/123 O2 Sat by Pulse 99 100 99 Oximetry 07/25/21 07/25/21 07/25/21 01:30 01:44 02:00 Temperature Pulse Rate 89 91 H 92 H Pulse Rate [ From Monitor] Respiratory 15 17 Rate Blood Pressure 176/118 176/118 171/111 O2 Sat by Pulse 97 100 Oximetry 07/25/21 07/25/21 07/25/21 02:31 03:00 03:30 Temperature Pulse Rate 91 H 103 H 93 H Pulse Rate [ From Monitor] Respiratory 21 14 15 Rate Blood Pressure 158/113 166/105 163/117 O2 Sat by Pulse 100 99 99 Oximetry 07/25/21 07/25/21 07/25/21 03:42 04:00 04:30 Temperature 98.8 F Pulse Rate 93 H 92 H Pulse Rate [ 91 H From Monitor] Respiratory 15 15 Rate Blood Pressure 170/113 162/112 O2 Sat by Pulse 99 Oximetry 07/25/21 07/25/21 07/25/21 05:00 05:30 06:00 Temperature Pulse Rate 94 H 91 H 99 H Pulse Rate [ From Monitor] Respiratory 16 13 17 Rate Blood Pressure 168/117 175/115 162/120 O2 Sat by Pulse 99 100 98 Oximetry 07/25/21 07/25/21 07/25/21 06:30 07:00 07:30 Temperature Pulse Rate 96 H 96 H 95 H Pulse Rate [ From Monitor] Respiratory 17 16 14 Rate Blood Pressure 163/119 165/115 163/118 O2 Sat by Pulse Oximetry 07/25/21 07/25/21 07/25/21 08:00 08:30 09:00 Temperature 98.0 F Pulse Rate 93 H 99 H 112 H Pulse Rate [ 102 H From Monitor] Respiratory 14 20 17 Rate Blood Pressure 178/125 173/131 160/113 O2 Sat by Pulse 97 95 Oximetry 07/25/21 09:17 Temperature Pulse Rate Pulse Rate [ From Monitor] Respiratory Rate Blood Pressure O2 Sat by Pulse 96 Oximetry Constitutional: no acute distress Eyes: non-icteric ENT: oropharynx moist Neck: supple, no lymphadenopathy Effort: normal Ascultation: Bilateral: clear, diminished breath sounds Percussion: Bilateral: not dull Cardiovascular: regular rate and rhythm, other (S1,S2) Gastrointestinal: normoactive bowel sounds, soft, non-tender, non-distended Integumentary: normal Extremities: no cyanosis, no edema, pulses normal, no ischemia or petechiae Neurologic: non-focal exam (grossly), pupils equal and round, CN II-XII normal Psychiatric: mood appropriate, affect normal CBC and BMP: 07/27/21 07:00 07/27/21 07:00 ABG, PT/INR, D-dimer: ABG ABG pH 7.534 pH Units (7.350-7.450) H 07/24/21 03:29 POC ABG pCO2 44.7 mmHg (32.0-48.0) 07/22/21 21:09 ABG pCO2 22.4 mm Hg 07/24/21 03:29 POC ABG pO2 189.2 mmHg (83-108) H 07/22/21 21:09 ABG pO2 80.2 mm Hg (80.0-90.0) 07/24/21 03:29 POC ABG HCO3 18.8 07/22/21 21:09 ABG O2 Saturation 95.8 % (95.0-99.0) 07/24/21 03:29 PT/INR, D-dimer PT 17.4 Sec. (12.2-14.9) H 07/22/21 19:18 INR 1.29 (0.87-1.13) H 07/22/21 19:18 Abnormal lab findings: Abnormal Labs 07/22/21 07/22/21 07/22/21 19:18 19:18 19:18 WBC 17.7 H RBC Hgb Hct MCV 115 H MCH 34 H MCHC 30 L Baso # (Auto) 0.2 H Seg Neutrophils % 78.4 H Seg Neuts % (Manual) 75.0 H Seg Neutrophils # Man 13.3 H PT 17.4 H INR 1.29 H ABG pH POC ABG pO2 ABG HCO3 ABG Base Excess ABG Hemoglobin ABG Oxyhemoglobin ABG Potassium ABG Chloride VBG pH Carboxyhemoglobin Sodium Potassium 5.6 H Chloride 84.9 L Carbon Dioxide 6 L* Creatinine 1.9 H Glucose 941 H* POC Glucose Hemoglobin A1c Lactic Acid Calcium 11.6 H Phosphorus Magnesium Ferritin AST 270 H ALT 107 H Alkaline Phosphatase 334 H Total Protein 10.0 H Albumin Arterial Blood Ionized Calcium Ur Specific [place] Salicylates Acetaminophen 07/22/21 07/22/21 07/22/21 19:18 19:18 19:18 WBC RBC Hgb Hct MCV MCH MCHC Baso # (Auto) Seg Neutrophils % Seg Neuts % (Manual) Seg Neutrophils # Man PT INR ABG pH POC ABG pO2 ABG HCO3 ABG Base Excess ABG Hemoglobin ABG Oxyhemoglobin ABG Potassium ABG Chloride VBG pH 7.030 L* Carboxyhemoglobin Sodium Potassium Chloride Carbon Dioxide Creatinine Glucose POC Glucose Hemoglobin A1c Lactic Acid Calcium Phosphorus Magnesium Ferritin AST ALT Alkaline Phosphatase Total Protein Albumin Arterial Blood Ionized Calcium Ur Specific [place] Salicylates 0.6 L Acetaminophen 5.0 L 07/22/21 07/22/21 07/22/21 20:01 20:29 20:58 WBC RBC Hgb Hct MCV MCH MCHC Baso # (Auto) Seg Neutrophils % Seg Neuts % (Manual) Seg Neutrophils # Man PT INR ABG pH POC ABG pO2 ABG HCO3 ABG Base Excess ABG Hemoglobin ABG Oxyhemoglobin ABG Potassium ABG Chloride VBG pH Carboxyhemoglobin Sodium Potassium Chloride Carbon Dioxide Creatinine Glucose POC Glucose > 600 H Hemoglobin A1c Lactic Acid Calcium Phosphorus 5.20 H Magnesium 3.00 H Ferritin AST ALT Alkaline Phosphatase Total Protein Albumin Arterial Blood Ionized Calcium Ur Specific [place] 1.033 H Salicylates Acetaminophen 07/22/21 07/22/21 07/22/21 20:58 21:09 21:29 WBC RBC Hgb Hct MCV MCH MCHC Baso # (Auto) Seg Neutrophils % Seg Neuts % (Manual) Seg Neutrophils # Man PT INR ABG pH 7.242 L POC ABG pO2 189.2 H ABG HCO3 ABG Base Excess ABG Hemoglobin ABG Oxyhemoglobin 98.7 H ABG Potassium 4.6 H ABG Chloride 97.0 L VBG pH Carboxyhemoglobin 0.3 L Sodium 135 L Potassium Chloride 91.5 L Carbon Dioxide 15 L D Creatinine 1.6 H Glucose 810 H* POC Glucose Hemoglobin A1c Lactic Acid 10.30 H* Calcium 11.0 H Phosphorus Magnesium Ferritin AST ALT Alkaline Phosphatase Total Protein Albumin Arterial Blood Ionized Calcium 5.6 H Ur Specific [place] Salicylates Acetaminophen 07/22/21 07/22/21 07/22/21 22:46 22:46 22:46 WBC RBC Hgb Hct MCV MCH MCHC Baso # (Auto) Seg Neutrophils % Seg Neuts % (Manual) Seg Neutrophils # Man PT INR ABG pH POC ABG pO2 ABG HCO3 ABG Base Excess ABG Hemoglobin ABG Oxyhemoglobin ABG Potassium ABG Chloride VBG pH Carboxyhemoglobin Sodium Potassium Chloride 96.7 L Carbon Dioxide 17 L Creatinine 1.5 H Glucose 659 H* POC Glucose Hemoglobin A1c 9.8 H Lactic Acid Calcium 10.6 H Phosphorus Magnesium 2.80 H Ferritin AST ALT Alkaline Phosphatase Total Protein Albumin Arterial Blood Ionized Calcium Ur Specific [place] Salicylates Acetaminophen 07/23/21 07/23/21 07/23/21 00:27 01:36 02:26 WBC RBC Hgb Hct MCV MCH MCHC Baso # (Auto) Seg Neutrophils % Seg Neuts % (Manual) Seg Neutrophils # Man PT INR ABG pH POC ABG pO2 ABG HCO3 ABG Base Excess ABG Hemoglobin ABG Oxyhemoglobin ABG Potassium ABG Chloride VBG pH Carboxyhemoglobin Sodium 148 H D Potassium 3.5 L Chloride Carbon Dioxide 21 L Creatinine 1.5 H Glucose 409 H POC Glucose 264 H 220 H Hemoglobin A1c Lactic Acid Calcium 10.8 H Phosphorus Magnesium Ferritin AST ALT Alkaline Phosphatase Total Protein Albumin Arterial Blood Ionized Calcium Ur Specific [place] Salicylates Acetaminophen 07/23/21 07/23/21 07/23/21 03:29 04:29 04:29 WBC RBC Hgb Hct MCV MCH MCHC Baso # (Auto) Seg Neutrophils % Seg Neuts % (Manual) Seg Neutrophils # Man PT INR ABG pH POC ABG pO2 ABG HCO3 ABG Base Excess ABG Hemoglobin ABG Oxyhemoglobin ABG Potassium ABG Chloride VBG pH Carboxyhemoglobin Sodium 150 H Potassium 2.7 L* D Chloride 111.7 H Carbon Dioxide Creatinine Glucose 181 H POC Glucose 189 H 155 H Hemoglobin A1c Lactic Acid Calcium Phosphorus Magnesium Ferritin AST ALT Alkaline Phosphatase Total Protein Albumin Arterial Blood Ionized Calcium Ur Specific [place] Salicylates Acetaminophen 07/23/21 07/23/21 07/23/21 05:27 06:33 07:48 WBC RBC Hgb Hct MCV MCH MCHC Baso # (Auto) Seg Neutrophils % Seg Neuts % (Manual) Seg Neutrophils # Man PT INR ABG pH POC ABG pO2 ABG HCO3 ABG Base Excess ABG Hemoglobin ABG Oxyhemoglobin ABG Potassium ABG Chloride VBG pH Carboxyhemoglobin Sodium Potassium Chloride Carbon Dioxide Creatinine Glucose POC Glucose 175 H 177 H 171 H Hemoglobin A1c Lactic Acid Calcium Phosphorus Magnesium Ferritin AST ALT Alkaline Phosphatase Total Protein Albumin Arterial Blood Ionized Calcium Ur Specific [place] Salicylates Acetaminophen 07/23/21 07/23/21 07/23/21 08:32 09:25 10:27 WBC RBC Hgb Hct MCV MCH MCHC Baso # (Auto) Seg Neutrophils % Seg Neuts % (Manual) Seg Neutrophils # Man PT INR ABG pH POC ABG pO2 ABG HCO3 ABG Base Excess ABG Hemoglobin ABG Oxyhemoglobin ABG Potassium ABG Chloride VBG pH Carboxyhemoglobin Sodium Potassium Chloride Carbon Dioxide Creatinine Glucose POC Glucose 216 H 142 H 136 H Hemoglobin A1c Lactic Acid Calcium Phosphorus Magnesium Ferritin AST ALT Alkaline Phosphatase Total Protein Albumin Arterial Blood Ionized Calcium Ur Specific [place] Salicylates Acetaminophen 11/07/23/21 07/23/21 10:32 10:32 11:32 WBC RBC Hgb Hct MCV MCH MCHC Baso # (Auto) Seg Neutrophils % Seg Neuts % (Manual) Seg Neutrophils # Man PT INR ABG pH POC ABG pO2 ABG HCO3 ABG Base Excess ABG Hemoglobin ABG Oxyhemoglobin ABG Potassium ABG Chloride VBG pH Carboxyhemoglobin Sodium 147 H Potassium 3.0 L Chloride 110.0 H Carbon Dioxide 20 L Creatinine Glucose 145 H POC Glucose 124 H Hemoglobin A1c Lactic Acid 4.10 H* Calcium Phosphorus 0.90 L* D Magnesium Ferritin AST ALT Alkaline Phosphatase Total Protein Albumin Arterial Blood Ionized Calcium Ur Specific [place] Salicylates Acetaminophen 07/23/21 07/23/21 07/23/21 12:36 13:33 14:33 WBC RBC Hgb Hct MCV MCH MCHC Baso # (Auto) Seg Neutrophils % Seg Neuts % (Manual) Seg Neutrophils # Man PT INR ABG pH POC ABG pO2 ABG HCO3 ABG Base Excess ABG Hemoglobin ABG Oxyhemoglobin ABG Potassium ABG Chloride VBG pH Carboxyhemoglobin Sodium Potassium Chloride Carbon Dioxide Creatinine Glucose POC Glucose 125 H 111 H 121 H Hemoglobin A1c Lactic Acid Calcium Phosphorus Magnesium Ferritin AST ALT Alkaline Phosphatase Total Protein Albumin Arterial Blood Ionized Calcium Ur Specific [place] Salicylates Acetaminophen 07/23/21 07/23/21 07/23/21 15:36 15:47 15:47 WBC RBC Hgb Hct MCV MCH MCHC Baso # (Auto) Seg Neutrophils % Seg Neuts % (Manual) Seg Neutrophils # Man PT INR ABG pH POC ABG pO2 ABG HCO3 ABG Base Excess ABG Hemoglobin ABG Oxyhemoglobin ABG Potassium ABG Chloride VBG pH Carboxyhemoglobin Sodium 148 H Potassium 3.0 L Chloride 112.8 H Carbon Dioxide 19 L Creatinine 1.4 H Glucose 135 H POC Glucose 124 H Hemoglobin A1c Lactic Acid 4.20 H* Calcium Phosphorus Magnesium Ferritin AST ALT Alkaline Phosphatase Total Protein Albumin Arterial Blood Ionized Calcium Ur Specific [place] Salicylates Acetaminophen 07/23/21 07/23/21 07/23/21 16:46 17:45 18:28 WBC RBC Hgb Hct MCV MCH MCHC Baso # (Auto) Seg Neutrophils % Seg Neuts % (Manual) Seg Neutrophils # Man PT INR ABG pH POC ABG pO2 ABG HCO3 ABG Base Excess ABG Hemoglobin ABG Oxyhemoglobin ABG Potassium ABG Chloride VBG pH Carboxyhemoglobin Sodium Potassium Chloride Carbon Dioxide Creatinine Glucose POC Glucose 126 H 139 H 144 H Hemoglobin A1c Lactic Acid Calcium Phosphorus Magnesium Ferritin AST ALT Alkaline Phosphatase Total Protein Albumin Arterial Blood Ionized Calcium Ur Specific [place] Salicylates Acetaminophen 07/23/21 07/23/21 07/23/21 20:27 21:36 22:22 WBC RBC Hgb Hct MCV MCH MCHC Baso # (Auto) Seg Neutrophils % Seg Neuts % (Manual) Seg Neutrophils # Man PT INR ABG pH POC ABG pO2 ABG HCO3 ABG Base Excess ABG Hemoglobin ABG Oxyhemoglobin ABG Potassium ABG Chloride VBG pH Carboxyhemoglobin Sodium Potassium Chloride 115.2 H Carbon Dioxide 18 L Creatinine 1.5 H Glucose 155 H POC Glucose 154 H 133 H Hemoglobin A1c Lactic Acid Calcium Phosphorus Magnesium Ferritin AST ALT Alkaline Phosphatase Total Protein Albumin Arterial Blood Ionized Calcium Ur Specific [place] Salicylates Acetaminophen 07/23/21 07/23/21 07/24/21 22:37 23:46 00:29 WBC RBC Hgb Hct MCV MCH MCHC Baso # (Auto) Seg Neutrophils % Seg Neuts % (Manual) Seg Neutrophils # Man PT INR ABG pH POC ABG pO2 ABG HCO3 ABG Base Excess ABG Hemoglobin ABG Oxyhemoglobin ABG Potassium ABG Chloride VBG pH Carboxyhemoglobin Sodium Potassium Chloride Carbon Dioxide Creatinine Glucose POC Glucose 130 H 111 H 155 H Hemoglobin A1c Lactic Acid Calcium Phosphorus Magnesium Ferritin AST ALT Alkaline Phosphatase Total Protein Albumin Arterial Blood Ionized Calcium Ur Specific [place] Salicylates Acetaminophen 07/24/21 07/24/21 07/24/21 02:01 03:11 03:29 WBC RBC Hgb Hct MCV MCH MCHC Baso # (Auto) Seg Neutrophils % Seg Neuts % (Manual) Seg Neutrophils # Man PT INR ABG pH 7.534 H POC ABG pO2 ABG HCO3 18.5 L ABG Base Excess -2.6 L ABG Hemoglobin 11.3 L ABG Oxyhemoglobin ABG Potassium ABG Chloride VBG pH Carboxyhemoglobin Sodium Potassium Chloride Carbon Dioxide Creatinine Glucose POC Glucose 140 H 159 H Hemoglobin A1c Lactic Acid Calcium Phosphorus Magnesium Ferritin AST ALT Alkaline Phosphatase Total Protein Albumin Arterial Blood Ionized Calcium Ur Specific [place] Salicylates Acetaminophen 07/24/21 07/24/21 07/24/21 04:06 04:41 04:41 WBC RBC 3.19 L Hgb 11.0 L Hct 33.5 L D MCV 105 H MCH 35 H MCHC Baso # (Auto) Seg Neutrophils % Seg Neuts % (Manual) Seg Neutrophils # Man PT INR ABG pH POC ABG pO2 ABG HCO3 ABG Base Excess ABG Hemoglobin ABG Oxyhemoglobin ABG Potassium ABG Chloride VBG pH Carboxyhemoglobin Sodium Potassium Chloride 114.8 H Carbon Dioxide 18 L Creatinine 1.4 H Glucose 178 H POC Glucose 167 H Hemoglobin A1c Lactic Acid Calcium 8.1 L Phosphorus Magnesium Ferritin AST 62 H ALT Alkaline Phosphatase Total Protein Albumin 2.8 L Arterial Blood Ionized Calcium Ur Specific [place] Salicylates Acetaminophen 07/24/21 07/24/21 07/24/21 04:41 05:13 06:01 WBC RBC Hgb Hct MCV MCH MCHC Baso # (Auto) Seg Neutrophils % Seg Neuts % (Manual) Seg Neutrophils # Man PT INR ABG pH POC ABG pO2 ABG HCO3 ABG Base Excess ABG Hemoglobin ABG Oxyhemoglobin ABG Potassium ABG Chloride VBG pH Carboxyhemoglobin Sodium Potassium Chloride Carbon Dioxide Creatinine Glucose POC Glucose 162 H 173 H Hemoglobin A1c Lactic Acid Calcium Phosphorus Magnesium Ferritin 657.6 H AST ALT Alkaline Phosphatase Total Protein Albumin Arterial Blood Ionized Calcium Ur Specific [place] Salicylates Acetaminophen 07/24/21 07/24/21 07/24/21 07:15 08:26 09:47 WBC RBC Hgb Hct MCV MCH MCHC Baso # (Auto) Seg Neutrophils % Seg Neuts % (Manual) Seg Neutrophils # Man PT INR ABG pH POC ABG pO2 ABG HCO3 ABG Base Excess ABG Hemoglobin ABG Oxyhemoglobin ABG Potassium ABG Chloride VBG pH Carboxyhemoglobin Sodium Potassium Chloride Carbon Dioxide Creatinine Glucose POC Glucose 151 H 150 H 155 H Hemoglobin A1c Lactic Acid Calcium Phosphorus Magnesium Ferritin AST ALT Alkaline Phosphatase Total Protein Albumin Arterial Blood Ionized Calcium Ur Specific [place] Salicylates Acetaminophen 07/24/21 07/24/21 07/24/21 10:50 11:48 17:22 WBC RBC Hgb Hct MCV MCH MCHC Baso # (Auto) Seg Neutrophils % Seg Neuts % (Manual) Seg Neutrophils # Man PT INR ABG pH POC ABG pO2 ABG HCO3 ABG Base Excess ABG Hemoglobin ABG Oxyhemoglobin ABG Potassium ABG Chloride VBG pH Carboxyhemoglobin Sodium Potassium Chloride Carbon Dioxide Creatinine Glucose POC Glucose 150 H 145 H 129 H Hemoglobin A1c Lactic Acid Calcium Phosphorus Magnesium Ferritin AST ALT Alkaline Phosphatase Total Protein Albumin Arterial Blood Ionized Calcium Ur Specific [place] Salicylates Acetaminophen 07/25/21 07/25/21 07/25/21 00:31 04:56 04:56 WBC RBC 3.43 L Hgb Hct MCV 107 H MCH 35 H MCHC Baso # (Auto) Seg Neutrophils % Seg Neuts % (Manual) Seg Neutrophils # Man PT INR ABG pH POC ABG pO2 ABG HCO3 ABG Base Excess ABG Hemoglobin ABG Oxyhemoglobin ABG Potassium ABG Chloride VBG pH Carboxyhemoglobin Sodium 152 H Potassium Chloride 113.9 H Carbon Dioxide 21 L Creatinine Glucose 122 H POC Glucose 117 H Hemoglobin A1c Lactic Acid Calcium Phosphorus 5.10 H D Magnesium Ferritin AST ALT Alkaline Phosphatase Total Protein Albumin Arterial Blood Ionized Calcium Ur Specific [place] Salicylates Acetaminophen 07/25/21 05:24 WBC RBC Hgb Hct MCV MCH MCHC Baso # (Auto) Seg Neutrophils % Seg Neuts % (Manual) Seg Neutrophils # Man PT INR ABG pH POC ABG pO2 ABG HCO3 ABG Base Excess ABG Hemoglobin ABG Oxyhemoglobin ABG Potassium ABG Chloride VBG pH Carboxyhemoglobin Sodium Potassium Chloride Carbon Dioxide Creatinine Glucose POC Glucose 117 H Hemoglobin A1c Lactic Acid Calcium Phosphorus Magnesium Ferritin AST ALT Alkaline Phosphatase Total Protein Albumin Arterial Blood Ionized Calcium Ur Specific [place] Salicylates Acetaminophen Allied health notes reviewed: nursing
--- NOTE | 2021-07-25 12:57 | Progress Note ---
Assessment and Plan Assessment and Plan 46-year-old male with no significant past medical history was brought into the emergency room by EMS today for evaluation of multiple seizures. Patient was said to have had convulsive events on the field which resolved spontaneously. He was also said to have had an episode of SVT which was terminated by 6 mg of adenosine. Accu-Chek on the field was said to be "high". - Patient Problems # DKA (diabetic ketoacidosis) Patient admitted into the intensive care unit and placed on IV fluid and insulin drip. We will monitor Accu-Cheks. A1C#9.6 # Seizures new onset had multiple seizure on admission -started on Keppra 500 mg bid -MRI brain with and without gd is unremarkable -EEG is pending -Hx of alcoholism -UDS is unremarkable -We will place on seizure precautions. - Seizures may be alcohol related. -Patient has been started on Keppra IV 500 mg BID -CT brain and CTA brain and neck are unremarkable # Acute encephalopathy resolved Possibly secondary to the seizures and DKA. Patient currently intubated. he is alert interactive off sedation no reported seizure # Acute respiratory failure Patient currently intubated off sedation We await further evaluation and recommendations from engineer soils. # Alcohol abuse Patient placed on alcohol withdrawal protocol. We will also be placed on multivitamins. # Renal insufficiency Patient placed on IV fluid. Will monitor BUN and creatinine. Consult placed to nephrology for evaluation. # SIRS (systemic inflammatory response syndrome) Patient has no obvious source of infection. He has been placed on IV fluid and empiric IV antibiotics. # Transaminitis Possibly secondary to history of alcohol abuse. We will monitor liver enzymes. Consult placed to gastroenterology done no further action. # DVT prophylaxis Patient placed on subcutaneous heparin. # Full code status Patient is full code. PLAN 1- As above 2- EEG to review 3- Seizure precaution no driving 4- DT precaution 5- Maintain Keppra 500 mg bid 6- Alcohol abstinence D/W pt. 7- Neurology follow up on D/C will follow Subjective Date of service: 07/25/21 Principal diagnosis: seizure and DKA new onset Interval history: doing well today alert oriented to place not date denied Hx of seizure or DM he was on no medication at home according to pt. MRI today is unremarkable will review EEG Objective - Vital Sign Vital Signs - 12hr 07/25/21 07/25/21 07/25/21 01:00 01:30 01:44 Temperature Pulse Rate 89 89 91 H Pulse Rate [ From Monitor] Respiratory 16 15 Rate Blood Pressure 174/123 176/118 176/118 O2 Sat by Pulse 99 97 Oximetry 07/25/21 07/25/21 07/25/21 02:00 02:31 03:00 Temperature Pulse Rate 92 H 91 H 103 H Pulse Rate [ From Monitor] Respiratory 17 21 14 Rate Blood Pressure 171/111 158/113 166/105 O2 Sat by Pulse 100 100 99 Oximetry 07/25/21 07/25/21 07/25/21 03:30 03:42 04:00 Temperature 98.8 F Pulse Rate 93 H 93 H Pulse Rate [ 91 H From Monitor] Respiratory 15 15 Rate Blood Pressure 163/117 170/113 O2 Sat by Pulse 99 99 Oximetry 07/25/21 07/25/21 07/25/21 04:30 05:00 05:30 Temperature Pulse Rate 92 H 94 H 91 H Pulse Rate [ From Monitor] Respiratory 15 16 13 Rate Blood Pressure 162/112 168/117 175/115 O2 Sat by Pulse 99 100 Oximetry 07/25/21 07/25/21 07/25/21 06:00 06:30 07:00 Temperature Pulse Rate 99 H 96 H 96 H Pulse Rate [ From Monitor] Respiratory 17 17 16 Rate Blood Pressure 162/120 163/119 165/115 O2 Sat by Pulse 98 Oximetry 07/25/21 07/25/21 07/25/21 07:30 08:00 08:30 Temperature 98.0 F Pulse Rate 95 H 93 H 99 H Pulse Rate [ 102 H From Monitor] Respiratory 14 14 20 Rate Blood Pressure 163/118 178/125 173/131 O2 Sat by Pulse 97 Oximetry 07/25/21 07/25/21 07/25/21 09:00 09:17 10:39 Temperature Pulse Rate 112 H 127 H Pulse Rate [ From Monitor] Respiratory 17 Rate Blood Pressure 160/113 160/113 O2 Sat by Pulse 95 96 97 Oximetry 07/25/21 07/25/21 07/25/21 11:01 11:30 11:45 Temperature Pulse Rate 127 H 121 H 123 H Pulse Rate [ From Monitor] Respiratory 17 18 Rate Blood Pressure 160/113 129/98 O2 Sat by Pulse 97 99 Oximetry 07/25/21 11:46 Temperature Pulse Rate Pulse Rate [ 102 H From Monitor] Respiratory Rate Blood Pressure O2 Sat by Pulse 100 Oximetry - General Apperance Constitutional: comfortable - EENT EENT: PERRL, mucous membranes moist - Respiratory Respiratory: lungs clear, rhonchi - Cardiovascular Cardiovascular: regular rate, normal S1, normal S2 Extremities: no peripheral edema bilat, no clubbing, cyanosis - Gastrointestinal Gastrointestinal: normoactive bowel sounds - Integumentary Integumentary: normal - Neurologic Cranial nerve examination: PERRL, EOMI, intact Speech examination: intact Detailed motor examination: grossly full strength in - Laboratory Findings CBC and BMP: 07/25/21 04:56 07/25/21 04:56 Abnormal Lab Findings: Abnormal Labs 07/22/21 07/22/21 07/22/21 19:18 19:18 19:18 WBC 17.7 H RBC Hgb Hct MCV 115 H MCH 34 H MCHC 30 L Baso # (Auto) 0.2 H Seg Neutrophils % 78.4 H Seg Neuts % (Manual) 75.0 H Seg Neutrophils # Man 13.3 H PT 17.4 H INR 1.29 H ABG pH POC ABG pO2 ABG HCO3 ABG Base Excess ABG Hemoglobin ABG Oxyhemoglobin ABG Potassium ABG Chloride VBG pH Carboxyhemoglobin Sodium Potassium 5.6 H Chloride 84.9 L Carbon Dioxide 6 L* Creatinine 1.9 H Glucose 941 H* POC Glucose Hemoglobin A1c Lactic Acid Calcium 11.6 H Phosphorus Magnesium Ferritin AST 270 H ALT 107 H Alkaline Phosphatase 334 H Total Protein 10.0 H Albumin Arterial Blood Ionized Calcium Ur Specific [place] Salicylates Acetaminophen 07/22/21 07/22/21 07/22/21 19:18 19:18 19:18 WBC RBC Hgb Hct MCV MCH MCHC Baso # (Auto) Seg Neutrophils % Seg Neuts % (Manual) Seg Neutrophils # Man PT INR ABG pH POC ABG pO2 ABG HCO3 ABG Base Excess ABG Hemoglobin ABG Oxyhemoglobin ABG Potassium ABG Chloride VBG pH 7.030 L* Carboxyhemoglobin Sodium Potassium Chloride Carbon Dioxide Creatinine Glucose POC Glucose Hemoglobin A1c Lactic Acid Calcium Phosphorus Magnesium Ferritin AST ALT Alkaline Phosphatase Total Protein Albumin Arterial Blood Ionized Calcium Ur Specific [place] Salicylates 0.6 L Acetaminophen 5.0 L 07/22/21 07/22/21 07/22/21 20:01 20:29 20:58 WBC RBC Hgb Hct MCV MCH MCHC Baso # (Auto) Seg Neutrophils % Seg Neuts % (Manual) Seg Neutrophils # Man PT INR ABG pH POC ABG pO2 ABG HCO3 ABG Base Excess ABG Hemoglobin ABG Oxyhemoglobin ABG Potassium ABG Chloride VBG pH Carboxyhemoglobin Sodium Potassium Chloride Carbon Dioxide Creatinine Glucose POC Glucose > 600 H Hemoglobin A1c Lactic Acid Calcium Phosphorus 5.20 H Magnesium 3.00 H Ferritin AST ALT Alkaline Phosphatase Total Protein Albumin Arterial Blood Ionized Calcium Ur Specific [place] 1.033 H Salicylates Acetaminophen 07/22/21 07/22/21 07/22/21 20:58 21:09 21:29 WBC RBC Hgb Hct MCV MCH MCHC Baso # (Auto) Seg Neutrophils % Seg Neuts % (Manual) Seg Neutrophils # Man PT INR ABG pH 7.242 L POC ABG pO2 189.2 H ABG HCO3 ABG Base Excess ABG Hemoglobin ABG Oxyhemoglobin 98.7 H ABG Potassium 4.6 H ABG Chloride 97.0 L VBG pH Carboxyhemoglobin 0.3 L Sodium 135 L Potassium Chloride 91.5 L Carbon Dioxide 15 L D Creatinine 1.6 H Glucose 810 H* POC Glucose Hemoglobin A1c Lactic Acid 10.30 H* Calcium 11.0 H Phosphorus Magnesium Ferritin AST ALT Alkaline Phosphatase Total Protein Albumin Arterial Blood Ionized Calcium 5.6 H Ur Specific [place] Salicylates Acetaminophen 07/22/21 07/22/21 07/22/21 22:46 22:46 22:46 WBC RBC Hgb Hct MCV MCH MCHC Baso # (Auto) Seg Neutrophils % Seg Neuts % (Manual) Seg Neutrophils # Man PT INR ABG pH POC ABG pO2 ABG HCO3 ABG Base Excess ABG Hemoglobin ABG Oxyhemoglobin ABG Potassium ABG Chloride VBG pH Carboxyhemoglobin Sodium Potassium Chloride 96.7 L Carbon Dioxide 17 L Creatinine 1.5 H Glucose 659 H* POC Glucose Hemoglobin A1c 9.8 H Lactic Acid Calcium 10.6 H Phosphorus Magnesium 2.80 H Ferritin AST ALT Alkaline Phosphatase Total Protein Albumin Arterial Blood Ionized Calcium Ur Specific [place] Salicylates Acetaminophen 07/23/21 07/23/21 07/23/21 00:27 01:36 02:26 WBC RBC Hgb Hct MCV MCH MCHC Baso # (Auto) Seg Neutrophils % Seg Neuts % (Manual) Seg Neutrophils # Man PT INR ABG pH POC ABG pO2 ABG HCO3 ABG Base Excess ABG Hemoglobin ABG Oxyhemoglobin ABG Potassium ABG Chloride VBG pH Carboxyhemoglobin Sodium 148 H D Potassium 3.5 L Chloride Carbon Dioxide 21 L Creatinine 1.5 H Glucose 409 H POC Glucose 264 H 220 H Hemoglobin A1c Lactic Acid Calcium 10.8 H Phosphorus Magnesium Ferritin AST ALT Alkaline Phosphatase Total Protein Albumin Arterial Blood Ionized Calcium Ur Specific [place] Salicylates Acetaminophen 07/23/21 07/23/21 07/23/21 03:29 04:29 04:29 WBC RBC Hgb Hct MCV MCH MCHC Baso # (Auto) Seg Neutrophils % Seg Neuts % (Manual) Seg Neutrophils # Man PT INR ABG pH POC ABG pO2 ABG HCO3 ABG Base Excess ABG Hemoglobin ABG Oxyhemoglobin ABG Potassium ABG Chloride VBG pH Carboxyhemoglobin Sodium 150 H Potassium 2.7 L* D Chloride 111.7 H Carbon Dioxide Creatinine Glucose 181 H POC Glucose 189 H 155 H Hemoglobin A1c Lactic Acid Calcium Phosphorus Magnesium Ferritin AST ALT Alkaline Phosphatase Total Protein Albumin Arterial Blood Ionized Calcium Ur Specific [place] Salicylates Acetaminophen 07/23/21 07/23/21 07/23/21 05:27 06:33 07:48 WBC RBC Hgb Hct MCV MCH MCHC Baso # (Auto) Seg Neutrophils % Seg Neuts % (Manual) Seg Neutrophils # Man PT INR ABG pH POC ABG pO2 ABG HCO3 ABG Base Excess ABG Hemoglobin ABG Oxyhemoglobin ABG Potassium ABG Chloride VBG pH Carboxyhemoglobin Sodium Potassium Chloride Carbon Dioxide Creatinine Glucose POC Glucose 175 H 177 H 171 H Hemoglobin A1c Lactic Acid Calcium Phosphorus Magnesium Ferritin AST ALT Alkaline Phosphatase Total Protein Albumin Arterial Blood Ionized Calcium Ur Specific [place] Salicylates Acetaminophen 07/23/21 07/23/21 07/23/21 08:32 09:25 10:27 WBC RBC Hgb Hct MCV MCH MCHC Baso # (Auto) Seg Neutrophils % Seg Neuts % (Manual) Seg Neutrophils # Man PT INR ABG pH POC ABG pO2 ABG HCO3 ABG Base Excess ABG Hemoglobin ABG Oxyhemoglobin ABG Potassium ABG Chloride VBG pH Carboxyhemoglobin Sodium Potassium Chloride Carbon Dioxide Creatinine Glucose POC Glucose 216 H 142 H 136 H Hemoglobin A1c Lactic Acid Calcium Phosphorus Magnesium Ferritin AST ALT Alkaline Phosphatase Total Protein Albumin Arterial Blood Ionized Calcium Ur Specific [place] Salicylates Acetaminophen 07/23/21 07/23/21 07/23/21 10:32 10:32 11:32 WBC RBC Hgb Hct MCV MCH MCHC Baso # (Auto) Seg Neutrophils % Seg Neuts % (Manual) Seg Neutrophils # Man PT INR ABG pH POC ABG pO2 ABG HCO3 ABG Base Excess ABG Hemoglobin ABG Oxyhemoglobin ABG Potassium ABG Chloride VBG pH Carboxyhemoglobin Sodium 147 H Potassium 3.0 L Chloride 110.0 H Carbon Dioxide 20 L Creatinine Glucose 145 H POC Glucose 124 H Hemoglobin A1c Lactic Acid 4.10 H* Calcium Phosphorus 0.90 L* D Magnesium Ferritin AST ALT Alkaline Phosphatase Total Protein Albumin Arterial Blood Ionized Calcium Ur Specific [place] Salicylates Acetaminophen 07/23/21 07/23/21 07/23/21 12:36 13:33 14:33 WBC RBC Hgb Hct MCV MCH MCHC Baso # (Auto) Seg Neutrophils % Seg Neuts % (Manual) Seg Neutrophils # Man PT INR ABG pH POC ABG pO2 ABG HCO3 ABG Base Excess ABG Hemoglobin ABG Oxyhemoglobin ABG Potassium ABG Chloride VBG pH Carboxyhemoglobin Sodium Potassium Chloride Carbon Dioxide Creatinine Glucose POC Glucose 125 H 111 H 121 H Hemoglobin A1c Lactic Acid Calcium Phosphorus Magnesium Ferritin AST ALT Alkaline Phosphatase Total Protein Albumin Arterial Blood Ionized Calcium Ur Specific [place] Salicylates Acetaminophen 07/23/21 07/23/21 07/23/21 15:36 15:47 15:47 WBC RBC Hgb Hct MCV MCH MCHC Baso # (Auto) Seg Neutrophils % Seg Neuts % (Manual) Seg Neutrophils # Man PT INR ABG pH POC ABG pO2 ABG HCO3 ABG Base Excess ABG Hemoglobin ABG Oxyhemoglobin ABG Potassium ABG Chloride VBG pH Carboxyhemoglobin Sodium 148 H Potassium 3.0 L Chloride 112.8 H Carbon Dioxide 19 L Creatinine 1.4 H Glucose 135 H POC Glucose 124 H Hemoglobin A1c Lactic Acid 4.20 H* Calcium Phosphorus Magnesium Ferritin AST ALT Alkaline Phosphatase Total Protein Albumin Arterial Blood Ionized Calcium Ur Specific [place] Salicylates Acetaminophen 07/23/21 07/23/21 07/23/21 16:46 17:45 18:28 WBC RBC Hgb Hct MCV MCH MCHC Baso # (Auto) Seg Neutrophils % Seg Neuts % (Manual) Seg Neutrophils # Man PT INR ABG pH POC ABG pO2 ABG HCO3 ABG Base Excess ABG Hemoglobin ABG Oxyhemoglobin ABG Potassium ABG Chloride VBG pH Carboxyhemoglobin Sodium Potassium Chloride Carbon Dioxide Creatinine Glucose POC Glucose 126 H 139 H 144 H Hemoglobin A1c Lactic Acid Calcium Phosphorus Magnesium Ferritin AST ALT Alkaline Phosphatase Total Protein Albumin Arterial Blood Ionized Calcium Ur Specific [place] Salicylates Acetaminophen 07/23/21 07/23/21 07/23/21 20:27 21:36 22:22 WBC RBC Hgb Hct MCV MCH MCHC Baso # (Auto) Seg Neutrophils % Seg Neuts % (Manual) Seg Neutrophils # Man PT INR ABG pH POC ABG pO2 ABG HCO3 ABG Base Excess ABG Hemoglobin ABG Oxyhemoglobin ABG Potassium ABG Chloride VBG pH Carboxyhemoglobin Sodium Potassium Chloride 115.2 H Carbon Dioxide 18 L Creatinine 1.5 H Glucose 155 H POC Glucose 154 H 133 H Hemoglobin A1c Lactic Acid Calcium Phosphorus Magnesium Ferritin AST ALT Alkaline Phosphatase Total Protein Albumin Arterial Blood Ionized Calcium Ur Specific [place] Salicylates Acetaminophen 07/23/21 07/23/21 07/24/21 22:37 23:46 00:29 WBC RBC Hgb Hct MCV MCH MCHC Baso # (Auto) Seg Neutrophils % Seg Neuts % (Manual) Seg Neutrophils # Man PT INR ABG pH POC ABG pO2 ABG HCO3 ABG Base Excess ABG Hemoglobin ABG Oxyhemoglobin ABG Potassium ABG Chloride VBG pH Carboxyhemoglobin Sodium Potassium Chloride Carbon Dioxide Creatinine Glucose POC Glucose 130 H 111 H 155 H Hemoglobin A1c Lactic Acid Calcium Phosphorus Magnesium Ferritin AST ALT Alkaline Phosphatase Total Protein Albumin Arterial Blood Ionized Calcium Ur Specific [place] Salicylates Acetaminophen 07/24/21 07/24/21 07/24/21 02:01 03:11 03:29 WBC RBC Hgb Hct MCV MCH MCHC Baso # (Auto) Seg Neutrophils % Seg Neuts % (Manual) Seg Neutrophils # Man PT INR ABG pH 7.534 H POC ABG pO2 ABG HCO3 18.5 L ABG Base Excess -2.6 L ABG Hemoglobin 11.3 L ABG Oxyhemoglobin ABG Potassium ABG Chloride VBG pH Carboxyhemoglobin Sodium Potassium Chloride Carbon Dioxide Creatinine Glucose POC Glucose 140 H 159 H Hemoglobin A1c Lactic Acid Calcium Phosphorus Magnesium Ferritin AST ALT Alkaline Phosphatase Total Protein Albumin Arterial Blood Ionized Calcium Ur Specific [place] Salicylates Acetaminophen 07/24/21 07/24/21 07/24/21 04:06 04:41 04:41 WBC RBC 3.19 L Hgb 11.0 L Hct 33.5 L D MCV 105 H MCH 35 H MCHC Baso # (Auto) Seg Neutrophils % Seg Neuts % (Manual) Seg Neutrophils # Man PT INR ABG pH POC ABG pO2 ABG HCO3 ABG Base Excess ABG Hemoglobin ABG Oxyhemoglobin ABG Potassium ABG Chloride VBG pH Carboxyhemoglobin Sodium Potassium Chloride 114.8 H Carbon Dioxide 18 L Creatinine 1.4 H Glucose 178 H POC Glucose 167 H Hemoglobin A1c Lactic Acid Calcium 8.1 L Phosphorus Magnesium Ferritin AST 62 H ALT Alkaline Phosphatase Total Protein Albumin 2.8 L Arterial Blood Ionized Calcium Ur Specific [place] Salicylates Acetaminophen 07/24/21 07/24/21 07/24/21 04:41 05:13 06:01 WBC RBC Hgb Hct MCV MCH MCHC Baso # (Auto) Seg Neutrophils % Seg Neuts % (Manual) Seg Neutrophils # Man PT INR ABG pH POC ABG pO2 ABG HCO3 ABG Base Excess ABG Hemoglobin ABG Oxyhemoglobin ABG Potassium ABG Chloride VBG pH Carboxyhemoglobin Sodium Potassium Chloride Carbon Dioxide Creatinine Glucose POC Glucose 162 H 173 H Hemoglobin A1c Lactic Acid Calcium Phosphorus Magnesium Ferritin 657.6 H AST ALT Alkaline Phosphatase Total Protein Albumin Arterial Blood Ionized Calcium Ur Specific [place] Salicylates Acetaminophen 07/24/21 07/24/21 07/24/21 07:15 08:26 09:47 WBC RBC Hgb Hct MCV MCH MCHC Baso # (Auto) Seg Neutrophils % Seg Neuts % (Manual) Seg Neutrophils # Man PT INR ABG pH POC ABG pO2 ABG HCO3 ABG Base Excess ABG Hemoglobin ABG Oxyhemoglobin ABG Potassium ABG Chloride VBG pH Carboxyhemoglobin Sodium Potassium Chloride Carbon Dioxide Creatinine Glucose POC Glucose 151 H 150 H 155 H Hemoglobin A1c Lactic Acid Calcium Phosphorus Magnesium Ferritin AST ALT Alkaline Phosphatase Total Protein Albumin Arterial Blood Ionized Calcium Ur Specific [place] Salicylates Acetaminophen 07/24/21 07/24/21 07/24/21 10:50 11:48 17:22 WBC RBC Hgb Hct MCV MCH MCHC Baso # (Auto) Seg Neutrophils % Seg Neuts % (Manual) Seg Neutrophils # Man PT INR ABG pH POC ABG pO2 ABG HCO3 ABG Base Excess ABG Hemoglobin ABG Oxyhemoglobin ABG Potassium ABG Chloride VBG pH Carboxyhemoglobin Sodium Potassium Chloride Carbon Dioxide Creatinine Glucose POC Glucose 150 H 145 H 129 H Hemoglobin A1c Lactic Acid Calcium Phosphorus Magnesium Ferritin AST ALT Alkaline Phosphatase Total Protein Albumin Arterial Blood Ionized Calcium Ur Specific [place] Salicylates Acetaminophen 07/25/21 07/25/21 07/25/21 00:31 04:56 04:56 WBC RBC 3.43 L Hgb Hct MCV 107 H MCH 35 H MCHC Baso # (Auto) Seg Neutrophils % Seg Neuts % (Manual) Seg Neutrophils # Man PT INR ABG pH POC ABG pO2 ABG HCO3 ABG Base Excess ABG Hemoglobin ABG Oxyhemoglobin ABG Potassium ABG Chloride VBG pH Carboxyhemoglobin Sodium 152 H Potassium Chloride 113.9 H Carbon Dioxide 21 L Creatinine Glucose 122 H POC Glucose 117 H Hemoglobin A1c Lactic Acid Calcium Phosphorus 5.10 H D Magnesium Ferritin AST ALT Alkaline Phosphatase Total Protein Albumin Arterial Blood Ionized Calcium Ur Specific [place] Salicylates Acetaminophen 07/25/21 07/25/21 05:24 11:36 WBC RBC Hgb Hct MCV MCH MCHC Baso # (Auto) Seg Neutrophils % Seg Neuts % (Manual) Seg Neutrophils # Man PT INR ABG pH POC ABG pO2 ABG HCO3 ABG Base Excess ABG Hemoglobin ABG Oxyhemoglobin ABG Potassium ABG Chloride VBG pH Carboxyhemoglobin Sodium Potassium Chloride Carbon Dioxide Creatinine Glucose POC Glucose 117 H 134 H Hemoglobin A1c Lactic Acid Calcium Phosphorus Magnesium Ferritin AST ALT Alkaline Phosphatase Total Protein Albumin Arterial Blood Ionized Calcium Ur Specific [place] Salicylates Acetaminophen
--- NOTE | 2021-07-25 15:47 | Progress Note ---
<MICHELLECHONGMarshall - Last Filed: 07/25/21 15:53> Assessment and Plan Assessment and plan: This is a 46-year-old female with EtOH, marijuana abuse and seizure disorder admitted post multiple seizures, DKA, acute encephalopathy and acute hypoxic respiratory distress. Neuro: Acute metabolic encephalopathy, seizure disorder, EtOH abuse -CT head with no acute intracranial abnormalities -EEG pending -Neurology consult, appreciate recommendations -Continue [facility] protocol -Maintain sleep-wake cycle -Avoid delirium -MRI brain shows not acute findings -Seizure/aspiration precautions Cardio: s/p SVT -Patient had SVT on route with EMS which was terminated with adenosine -Blood pressure monitoring per protocol Respiratory: Acute hypoxic respiratory failure -Patient was intubated on 07/22- 07/24 -Currently on RA to nasal cannula -SPO2 monitoring -Pulmonary hygiene GI: Transaminitis (resolving) -GI consulted, appreciate recommendations -Signed off today -Transaminitis likely secondary to EtOH abuse, acute ischemic injury and malnutrition -Abdominal ultrasound pending -Avoid hypotension/epigastric medications -Patient passed bedside swallow eval today -started on diet -PPI -BR: Senokot -24-hour -319 mL : Acute kidney injury likely secondary to acute tubular necrosis, hyperchloremia, hypernatremia, Hypophosphatemia (resolved) -Nephrology consulted, appreciate recommendations -Received renal contrast on 07/22 -S/p MIVF -Trend BMP -Per nephrology: Likely baseline CKD -Avoid nephrotic medications -Renally dose medications -Renal ultrasound pending -Encourage p.o. intake Endo: DKA -S/p insulin drip -CC diet -Avoid hypoglycemia -Long-acting insulin, titrate as needed -Accu-Cheks every before meals at bedtime -SSI -Hemoglobin A1c 9.6 ID: SIRS, lactic acidosis (resolved) -Presented with leukocytosis and acute hypoxic respiratory failure -Follow culture data -Follow-up blood cultures -Empiric antibiotics x1 in the ED Heme: Leukocytosis (resolved) -SCDs to bilateral proximal in bed -trend CBC -Transfuse hemoglobin less than 7 -Lovenox subcu The high probability of a clinically significant, sudden or life threatening deterioration of the [multiple] system(s) required my full and direct attention, intervention and personal management. The aggregate critical care time was [60] minutes. This time is in addition to time spent performing reported procedures but includes the following: [x] Data Review and interpretation [x] Patient assessment and monitoring of vital signs [x] Documentation [x] Medication orders and management Disposition Plan: transfer to floor Total Time Spent with Patient (Minutes): 60 History Interval history: This is a 46-year-old male with seizures, EtOH and marijuana abuse presented to emergency department on 07/22 via EMS for evaluation of multiple seizures with the least one witnessed seizure. Patient had SVT with EMS which was terminated with 6 mg of adenosine, Accu-Cheks in the field was said to be "high". Upon arrival to the emergency department patient was tachycardic and hypertensive with copious secretions in his oral cavity and was subsequently intubated in the emergency department. Work-up in the emergency department revealed leukocytosis, hyperkalemia, metabolic acidosis, elevated blood glucose of 941, transaminitis, elevated BUN/creatinine and anion gap. CXR, CT head and CTA head/neck were negative. Patient was admitted to the hospitalist service with consults to neurology, CCM, nephrology and GI. 07/23/21- Patient remains intubated and sedate, RASS -4. Remains on DKA protocol, plan to transition to SubQ insulin once gap is closed. Renal function is improving and electrolytes were repleted. Will continue cont. IVF and monitor and replaced eletrolytes as needed. Serial BMP, phosp, and mag ordered. 07/24: Patient was extubated today. Awaiting ST evaluation. Insulin drip discontinued today and given one-time dose of long-acting insulin and place on SSI. Will start long-acting insulin scheduled once p.o. intake evaluated. 07/25: Patient passed bedside swallow eval today, and EEG was completed today. MRI brain completed. Patient will be transferred to the floor today. Neurology recommends follow-up with outpatient neurology. Hospitalist Physical - Constitutional Vitals: Temp Pulse Resp BP Pulse Ox 98.0 F 123 H 21 120/80 97 07/25/21 08:00 07/25/21 13:00 07/25/21 13:00 07/25/21 13:00 07/25/21 13:00 General appearance: Present: no acute distress, well-nourished, other (Intubated and Sedated) - EENT Eyes: Present: PERRL, EOM intact ENT: hearing intact, clear oral mucosa, dentition normal - Neck Neck: Present: normal ROM - Respiratory Respiratory effort: normal Respiratory: bilateral: CTA - Cardiovascular Rhythm: regular Heart Sounds: Present: S1 & S2. Absent: systolic murmur, diastolic murmur - Extremities Extremities: no ischemia, pulses intact, pulses symmetrical, No edema, normal temperature, normal color, Full ROM Peripheral Pulses: within normal limits - Abdominal General gastrointestinal: soft, non-tender, non-distended, normal bowel sounds - Integumentary Integumentary: Present: warm, dry - Psychiatric Psychiatric: cooperative - Neurologic Neurologic: CNII-XII intact, no focal deficits, moves all extremities - Allied Health Allied health notes reviewed: nursing, RT, social work HEART Score - HEART Score Troponin: Troponin T < 0.010 ng/mL (0.00-0.029) 07/22/21 19:18 Results - Labs CBC & Chem 7: 07/25/21 04:56 07/25/21 04:56 Labs: Laboratory Last Values WBC 9.2 K/mm3 (4.5-11.0) 07/25/21 04:56 RBC 3.43 M/mm3 (3.65-5.03) L 07/25/21 04:56 Hgb 11.9 gm/dl (11.8-15.2) 07/25/21 04:56 Hct 36.6 % (35.5-45.6) 07/25/21 04:56 MCV 107 fl (84-94) H 07/25/21 04:56 MCH 35 pg (28-32) H 07/25/21 04:56 MCHC 33 % (32-34) 07/25/21 04:56 RDW 14.9 % (13.2-15.2) 07/25/21 04:56 Plt Count 233 K/mm3 (140-440) 07/25/21 04:56 [place] % (Auto) 5.6 % (0.0-7.3) 07/22/21 19:18 Baso # (Auto) 0.2 K/mm3 (0.0-0.1) H 07/22/21 19:18 Add Manual Diff Complete 07/22/21 19:18 Total Counted 100 07/22/21 19:18 Seg Neutrophils % 78.4 % (40.0-70.0) H 07/22/21 19:18 Seg Neuts % (Manual) 75.0 % (40.0-70.0) H 07/22/21 19:18 Band Neutrophils % 4.0 % 07/22/21 19:18 Lymphocytes % (Manual) 17.0 % (13.4-35.0) 07/22/21 19:18 Monocytes % (Manual) 3.0 % (0.0-7.3) 07/22/21 19:18 Eosinophils % (Manual) 1.0 % (0.0-4.3) 07/22/21 19:18 Nucleated RBC % Not Reportable 07/22/21 19:18 Seg Neutrophils # Man 13.3 K/mm3 (1.8-7.7) H 07/22/21 19:18 Band Neutrophils # 0.7 K/mm3 07/22/21 19:18 Lymphocytes # (Manual) 3.0 K/mm3 (1.2-5.4) 07/22/21 19:18 Abs React Lymphs (Man) 0.0 K/mm3 07/22/21 19:18 Monocytes # (Manual) 0.5 K/mm3 (0.0-0.8) 07/22/21 19:18 Eosinophils # (Manual) 0.2 K/mm3 (0.0-0.4) 07/22/21 19:18 Basophils # (Manual) 0.0 K/mm3 (0.0-0.1) 07/22/21 19:18 Metamyelocytes # 0.0 K/mm3 07/22/21 19:18 Myelocytes # 0.0 K/mm3 07/22/21 19:18 Promyelocytes # 0.0 K/mm3 07/22/21 19:18 Blast Cells # 0.0 K/mm3 07/22/21 19:18 WBC Morphology Not Reportable 07/22/21 19:18 Hypersegmented Neuts Not Reportable 07/22/21 19:18 Hyposegmented Neuts Not Reportable 07/22/21 19:18 Hypogranular Neuts Not Reportable 07/22/21 19:18 Smudge Cells Not Reportable 07/22/21 19:18 Toxic Granulation Not Reportable 07/22/21 19:18 Toxic Vacuolation Not Reportable 07/22/21 19:18 Dohle Bodies Not Reportable 07/22/21 19:18 Pelger-Huet Anomaly Not Reportable 07/22/21 19:18 Jacek Rods Not Reportable 07/22/21 19:18 Platelet Estimate Consistent w auto 07/22/21 19:18 Clumped Platelets Not Reportable 07/22/21 19:18 Plt Clumps, EDTA Not Reportable 07/22/21 19:18 Large Platelets Not Reportable 07/22/21 19:18 Giant Platelets Not Reportable 07/22/21 19:18 Platelet Satelliting Not Reportable 07/22/21 19:18 Plt Morphology Comment Not Reportable 07/22/21 19:18 RBC Morphology Not Reportable 07/22/21 19:18 Dimorphic RBCs Not Reportable 07/22/21 19:18 Polychromasia Not Reportable 07/22/21 19:18 Hypochromasia Not Reportable 07/22/21 19:18 Poikilocytosis Not Reportable 07/22/21 19:18 Anisocytosis 1+ 07/22/21 19:18 Microcytosis Not Reportable 07/22/21 19:18 Macrocytosis 1+ 07/22/21 19:18 Spherocytes Not Reportable 07/22/21 19:18 Pappenheimer Bodies Not Reportable 07/22/21 19:18 Sickle Cells Not Reportable 07/22/21 19:18 Target Cells Not Reportable 07/22/21 19:18 Tear Drop Cells Not Reportable 07/22/21 19:18 Ovalocytes Not Reportable 07/22/21 19:18 Helmet Cells Not Reportable 07/22/21 19:18 Vega-Leary Bodies Not Reportable 07/22/21 19:18 [place] Rings Not Reportable 07/22/21 19:18 [place] Cells Not Reportable 07/22/21 19:18 Bite Cells Not Reportable 07/22/21 19:18 Crenated Cell Not Reportable 07/22/21 19:18 Elliptocytes Not Reportable 07/22/21 19:18 Acanthocytes (Spur) Not Reportable 07/22/21 19:18 Rouleaux Not Reportable 07/22/21 19:18 Hemoglobin C Crystals Not Reportable 07/22/21 19:18 Schistocytes Not Reportable 07/22/21 19:18 Malaria parasites Not Reportable 07/22/21 19:18 Dieudonne Bodies Not Reportable 07/22/21 19:18 Hem Pathologist Commnt No 07/22/21 19:18 PT 17.4 Sec. (12.2-14.9) H 07/22/21 19:18 INR 1.29 (0.87-1.13) H 07/22/21 19:18 APTT 28.3 Sec. (24.2-36.6) 07/22/21 19:18 Thrombin Time 18.0 Sec. (15.1-19.6) 07/22/21 19:18 ABG pH 7.534 pH Units (7.350-7.450) H 07/24/21 03:29 POC ABG pCO2 44.7 mmHg (32.0-48.0) 07/22/21 21:09 ABG pCO2 22.4 mm Hg 07/24/21 03:29 POC ABG pO2 189.2 mmHg (83-108) H 07/22/21 21:09 ABG pO2 80.2 mm Hg (80.0-90.0) 07/24/21 03:29 POC ABG HCO3 18.8 07/22/21 21:09 ABG HCO3 18.5 mmol/L (20.0-26.0) L 07/24/21 03:29 ABG O2 Saturation 95.8 % (95.0-99.0) 07/24/21 03:29 POC ABG Base Excess -8.3 07/22/21 21:09 ABG Base Excess -2.6 mmol/L (-2.0-3.0) L 07/24/21 03:29 ABG Hemoglobin 11.3 gm/dl (14.0-18.0) L 07/24/21 03:29 ABG Oxyhemoglobin 98.7 (94-98) H 07/22/21 21:09 ABG Carboxyhemoglobin 0.3 % (0.0-5.0) 07/24/21 03:29 ABG Methemoglobin 0.3 % (0.0-1.5) 07/24/21 03:29 ABG Sodium 141.6 mmol/L (136.0-145.0) 07/22/21 21:09 ABG Potassium 4.6 mmol/L (3.40-4.50) H 07/22/21 21:09 ABG Chloride 97.0 mmol/L (98-107) L 07/22/21 21:09 VBG pH 7.030 (7.320-7.420) L* 07/22/21 19:18 Oxyhemoglobin 95.2 % (95.0-99.0) 07/24/21 03:29 Carboxyhemoglobin 0.3 (0.5-1.5) L 07/22/21 21:09 FiO2 30 % 07/24/21 03:29 FiO2 % 100.0 07/22/21 21:09 Sodium 152 mmol/L (137-145) H 07/25/21 04:56 Potassium 4.6 mmol/L (3.6-5.0) 07/25/21 04:56 Chloride 113.9 mmol/L (98-107) H 07/25/21 04:56 Carbon Dioxide 21 mmol/L (22-30) L 07/25/21 04:56 Anion Gap 22 mmol/L 07/25/21 04:56 BUN 13 mg/dL (9-20) 07/25/21 04:56 Creatinine 1.3 mg/dL (0.8-1.3) 07/25/21 04:56 Estimated GFR > 60 ml/min 07/25/21 04:56 BUN/Creatinine Ratio 10 % 07/25/21 04:56 Glucose 122 mg/dL (75-100) H 07/25/21 04:56 POC Glucose 134 mg/dL (70-105) H 07/25/21 11:36 Hemoglobin A1c 9.8 % (4-6) H 07/22/21 22:46 Lactic Acid 1.40 mmol/L (0.7-2.0) 07/24/21 00:16 Calcium 9.0 mg/dL (8.4-10.2) 07/25/21 04:56 Phosphorus 5.10 mg/dL (2.5-4.5) H D 07/25/21 04:56 Magnesium 2.20 mg/dL (1.7-2.3) 07/24/21 04:41 Ferritin 657.6 ng/mL (30.0-300.0) H 07/24/21 04:41 Total Bilirubin 0.60 mg/dL (0.1-1.2) 07/24/21 04:41 AST 62 units/L (5-40) H 07/24/21 04:41 ALT 47 units/L (7-56) 07/24/21 04:41 Alkaline Phosphatase 108 units/L (35-129) 07/24/21 04:41 Total Creatine Kinase 166 units/L (55-170) 07/22/21 19:18 CK-MB (CK-2) 3.2 ng/mL (0.0-4.0) 07/22/21 19:18 CK-MB (CK-2) Rel Index 1.9 (0-4) 07/22/21 19:18 Troponin T < 0.010 ng/mL (0.00-0.029) 07/22/21 19:18 Total Protein 6.6 g/dL (6.3-8.2) D 07/24/21 04:41 Albumin 2.8 g/dL (3.9-5) L 07/24/21 04:41 Albumin/Globulin Ratio 0.7 % 07/24/21 04:41 TSH 2.290 mlU/mL (0.270-4.200) 07/24/21 04:41 Arterial Blood Ionized Calcium 5.6 mg/dL (4.6-5.3) H 07/22/21 21:09 Urine Color Straw (Yellow) 07/22/21 20:01 Urine Turbidity Clear (Clear) 07/22/21 20:01 Urine pH 6.0 (5.0-7.0) 07/22/21 20:01 Ur Specific [place] 1.033 (1.003-1.030) H 07/22/21 20:01 Urine Protein 100 mg/dl mg/dL (Negative) 07/22/21 20:01 Urine Glucose (UA) >=500 mg/dL (Negative) 07/22/21 20:01 Urine Ketones Neg mg/dL (Negative) 07/22/21 20:01 Urine Blood Mod (Negative) 07/22/21 20:01 Urine Nitrite Neg (Negative) 07/22/21 20:01 Urine Bilirubin Neg (Negative) 07/22/21 20:01 Urine Urobilinogen < 2.0 mg/dL (<2.0) 07/22/21 20:01 Ur Leukocyte Esterase Neg (Negative) 07/22/21 20:01 Urine WBC (Auto) 2.0 /HPF (0.0-6.0) 07/22/21 20:01 Urine RBC (Auto) 1.0 /HPF (0.0-6.0) 07/22/21 20:01 Urine Bacteria (Auto) 1+ /HPF (Negative) 07/22/21 20:01 Urine Mucus Few /HPF 07/22/21 20:01 Salicylates 0.6 mg/dL (2.8-20.0) L 07/22/21 19:18 Urine Opiates Screen Negative 07/22/21 20:01 Urine Methadone Screen Negative 07/22/21 20:01 Acetaminophen 5.0 ug/mL (10.0-30.0) L 07/22/21 19:18 Ur Barbiturates Screen Negative 07/22/21 20:01 Ur Phencyclidine Scrn Negative 07/22/21 20:01 Ur Amphetamines Screen Negative 07/22/21 20:01 U Benzodiazepines Scrn Negative 07/22/21 20:01 Urine Cocaine Screen Negative 07/22/21 20:01 U Marijuana (THC) Screen Negative 07/22/21 20:01 Drugs of Abuse Note Disclamer 07/22/21 20:01 Plasma/Serum Alcohol < 0.01 % (0-0.07) 07/22/21 19:18 Microbiology: Microbiology 07/22/21 21:29 Peripheral/Venous Blood Culture - Preliminary NO GROWTH AFTER 48 HOURS 07/22/21 21:50 Peripheral/Venous Blood Culture - Preliminary NO GROWTH AFTER 48 HOURS [place]/IV: Voiding Method Indwelling Catheter Active Medications - Current Medications Current Medications: Generic Name Dose Route Start Last Admin Trade Name Freq PRN Reason Stop Dose Admin Acetaminophen 650 mg 07/22/21 21:57 Acetaminophen 650 Mg Rect Supp UT Q6H PRN Pain MILD(1-3)/Fever >100.5/BERNAL Dextrose 50 ml 07/25/21 11:00 Dextrose 50% In Water (25gm) 50 Ml Syringe IV Q30MIN PRN Hypoglycemia Protocol Famotidine 20 mg 07/26/21 10:00 Famotidine 20 Mg Tab PO QDAY ROMERO Heparin Sodium (Porcine) 5,000 unit 07/23/21 06:00 07/25/21 14:22 Heparin 5,000 Unit/1 Ml Vial SUB-Q 5,000 unit Q8HR ROMERO Administration Hydralazine HCl 10 mg 07/25/21 01:38 07/25/21 09:01 Hydralazine 20 Mg/1 Ml Inj IV 10 mg Q6H PRN Administration Hypertension Levetiracetam 500 mg/ Dextrose 105 mls @ 400 mls/hr 07/23/21 10:00 07/25/21 09:00 IV 400 mls/hr Q12HR ROMERO Administration Insulin Human Isoph/Insulin Regular 5 unit 07/25/21 11:00 07/25/21 11:33 Insulin Nph/Regular 70/30 Inj SUB-Q 5 unit BIDDIAB ROMERO Administration Insulin Human Lispro 0 unit 07/25/21 11:30 Insulin Lispro 100 Unit/Ml SUB-Q ACHS ROMERO Protocol Lorazepam 2 mg 07/23/21 05:10 07/24/21 21:41 Lorazepam 2 Mg/Ml Vial IV 2 mg Q1H PRN Administration CIWA-Ar 8-15 Lorazepam 4 mg 07/23/21 05:10 07/24/21 07:32 Lorazepam 2 Mg/Ml Vial IV 4 mg Q1H PRN Administration CIWA-Ar 16-25 Lorazepam 4 mg 07/23/21 05:10 Lorazepam 2 Mg/Ml Vial IV Q15MIN PRN CIWA-Ar >25 Magnesium Hydroxide 30 ml 07/22/21 21:57 Magnesium Hydroxide (Mom) Oral Liqd Udc PO Q4H PRN Constipation Morphine Sulfate 2 mg 07/22/21 21:57 07/24/21 07:32 Morphine 2 Mg/1 Ml Inj IV 2 mg Q4H PRN Administration Pain, Moderate (4-6) Morphine Sulfate 4 mg 07/22/21 21:57 Morphine 4 Mg/1 Ml Inj IV Q4H PRN Pain , Severe (7-10) Senna/Docusate Sodium 1 tab 07/25/21 22:00 Sennosides/Docusate Sodium 8.6/50 Mg Tab PO QHS ROMERO Sodium Chloride 10 ml 07/22/21 22:00 07/25/21 09:02 Sodium Chloride 0.9% 10 Ml Flush Syringe IV 10 ml BID ROMERO Administration Sodium Chloride 10 ml 07/22/21 21:57 Sodium Chloride 0.9% 10 Ml Flush Syringe IV PRN PRN LINE FLUSH Nutrition/Malnutrition Assess - Dietary Evaluation Nutrition/Malnutrition Findings: Nutrition Notes Start: 07/23/21 09:29 Freq: Status: Active Protocol: Document 07/25/21 15:19 TREVOR (Rec: 07/25/21 15:23 TREVOR [id number]) Nutrition Notes Initial or Follow up Reassessment Current Diagnosis Acute Kidney Injury,Diabetes Other Pertinent Diagnosis Acute metabolic encephalopathy , Seizures, EtOH dependence Current Diet Consistent CHO Labs/Tests Na 152 Phos 5.1 POC Glu range since last assessment: 117-173 Pertinent Medications Reviewed Height 5 ft 8 in Weight 76.5 kg [place] Body Weight (kg) 70.00 BMI 25.6 Weight Status Appropriate Subjective/Other Information Pt extubated yesterday and diet advanced for breakfast this am. Pt remains on CIWA protocol. Burn Absent Trauma Absent #1 Nutrition Diagnosis Inadequate oral intake As Evidenced by Signs and Symptoms diet advanced this am; pt no longer on vent support Diagnosis Progress(for reassessment Improved documentation) Is patient on ventilator? No Is Patient Ambulatory and/or Out of Bed No REE-([facility]-confined to bed) [phone] Calculation Used for Recommendations [facility] Additional Notes Protein: 1.2-2g/kg (92-153g) Fluid: 1 ml/kcal or per MD Nutrition Intervention Change Diet Order: Continue current diet order Goal #1 PO intake to meet at least 75% energy and pro needs Anticipated Discharge Needs: None identified at this time Follow-Up By: 07/27/21 Additional Comments F/U: intakes, need for ONS <ROSELINE OLIVEROS - Last Filed: 07/27/21 07:21> Assessment and Plan Assessment and plan: I saw and evaluated the patient. Discussed with the nurse practitioner and agree with their findings and plan as documented in this note. Hospitalist Physical - Constitutional Vitals: Temp Pulse Resp BP Pulse Ox 97.9 F 106 H 18 157/108 97 07/27/21 04:40 07/27/21 04:40 07/27/21 04:40 07/27/21 04:40 07/27/21 04:40 HEART Score - HEART Score Troponin: Troponin T < 0.010 ng/mL (0.00-0.029) 07/22/21 19:18 Results - Labs CBC & Chem 7: 07/25/21 04:56 07/26/21 04:35 Labs: Laboratory Last Values WBC 9.2 K/mm3 (4.5-11.0) 07/25/21 04:56 RBC 3.43 M/mm3 (3.65-5.03) L 07/25/21 04:56 Hgb 11.9 gm/dl (11.8-15.2) 07/25/21 04:56 Hct 36.6 % (35.5-45.6) 07/25/21 04:56 MCV 107 fl (84-94) H 07/25/21 04:56 MCH 35 pg (28-32) H 07/25/21 04:56 MCHC 33 % (32-34) 07/25/21 04:56 RDW 14.9 % (13.2-15.2) 07/25/21 04:56 Plt Count 233 K/mm3 (140-440) 07/25/21 04:56 [place] % (Auto) 5.6 % (0.0-7.3) 07/22/21 19:18 Baso # (Auto) 0.2 K/mm3 (0.0-0.1) H 07/22/21 19:18 Add Manual Diff Complete 07/22/21 19:18 Total Counted 100 07/22/21 19:18 Seg Neutrophils % 78.4 % (40.0-70.0) H 07/22/21 19:18 Seg Neuts % (Manual) 75.0 % (40.0-70.0) H 07/22/21 19:18 Band Neutrophils % 4.0 % 07/22/21 19:18 Lymphocytes % (Manual) 17.0 % (13.4-35.0) 07/22/21 19:18 Monocytes % (Manual) 3.0 % (0.0-7.3) 07/22/21 19:18 Eosinophils % (Manual) 1.0 % (0.0-4.3) 07/22/21 19:18 Nucleated RBC % Not Reportable 07/22/21 19:18 Seg Neutrophils # Man 13.3 K/mm3 (1.8-7.7) H 07/22/21 19:18 Band Neutrophils # 0.7 K/mm3 07/22/21 19:18 Lymphocytes # (Manual) 3.0 K/mm3 (1.2-5.4) 07/22/21 19:18 Abs React Lymphs (Man) 0.0 K/mm3 07/22/21 19:18 Monocytes # (Manual) 0.5 K/mm3 (0.0-0.8) 07/22/21 19:18 Eosinophils # (Manual) 0.2 K/mm3 (0.0-0.4) 07/22/21 19:18 Basophils # (Manual) 0.0 K/mm3 (0.0-0.1) 07/22/21 19:18 Metamyelocytes # 0.0 K/mm3 07/22/21 19:18 Myelocytes # 0.0 K/mm3 07/22/21 19:18 Promyelocytes # 0.0 K/mm3 07/22/21 19:18 Blast Cells # 0.0 K/mm3 07/22/21 19:18 WBC Morphology Not Reportable 07/22/21 19:18 Hypersegmented Neuts Not Reportable 07/22/21 19:18 Hyposegmented Neuts Not Reportable 07/22/21 19:18 Hypogranular Neuts Not Reportable 07/22/21 19:18 Smudge Cells Not Reportable 07/22/21 19:18 Toxic Granulation Not Reportable 07/22/21 19:18 Toxic Vacuolation Not Reportable 07/22/21 19:18 Dohle Bodies Not Reportable 07/22/21 19:18 Pelger-Huet Anomaly Not Reportable 07/22/21 19:18 Jacek Rods Not Reportable 07/22/21 19:18 Platelet Estimate Consistent w auto 07/22/21 19:18 Clumped Platelets Not Reportable 07/22/21 19:18 Plt Clumps, EDTA Not Reportable 07/22/21 19:18 Large Platelets Not Reportable 07/22/21 19:18 Giant Platelets Not Reportable 07/22/21 19:18 Platelet Satelliting Not Reportable 07/22/21 19:18 Plt Morphology Comment Not Reportable 07/22/21 19:18 RBC Morphology Not Reportable 07/22/21 19:18 Dimorphic RBCs Not Reportable 07/22/21 19:18 Polychromasia Not Reportable 07/22/21 19:18 Hypochromasia Not Reportable 07/22/21 19:18 Poikilocytosis Not Reportable 07/22/21 19:18 Anisocytosis 1+ 07/22/21 19:18 Microcytosis Not Reportable 07/22/21 19:18 Macrocytosis 1+ 07/22/21 19:18 Spherocytes Not Reportable 07/22/21 19:18 Pappenheimer Bodies Not Reportable 07/22/21 19:18 Sickle Cells Not Reportable 07/22/21 19:18 Target Cells Not Reportable 07/22/21 19:18 Tear Drop Cells Not Reportable 07/22/21 19:18 Ovalocytes Not Reportable 07/22/21 19:18 Helmet Cells Not Reportable 07/22/21 19:18 Vega-Leary Bodies Not Reportable 07/22/21 19:18 [place] Rings Not Reportable 07/22/21 19:18 [place] Cells Not Reportable 07/22/21 19:18 Bite Cells Not Reportable 07/22/21 19:18 Crenated Cell Not Reportable 07/22/21 19:18 Elliptocytes Not Reportable 07/22/21 19:18 Acanthocytes (Spur) Not Reportable 07/22/21 19:18 Rouleaux Not Reportable 07/22/21 19:18 Hemoglobin C Crystals Not Reportable 07/22/21 19:18 Schistocytes Not Reportable 07/22/21 19:18 Malaria parasites Not Reportable 07/22/21 19:18 Dieudonne Bodies Not Reportable 07/22/21 19:18 Hem Pathologist Commnt No 07/22/21 19:18 PT 17.4 Sec. (12.2-14.9) H 07/22/21 19:18 INR 1.29 (0.87-1.13) H 07/22/21 19:18 APTT 28.3 Sec. (24.2-36.6) 07/22/21 19:18 Thrombin Time 18.0 Sec. (15.1-19.6) 07/22/21 19:18 ABG pH 7.534 pH Units (7.350-7.450) H 07/24/21 03:29 POC ABG pCO2 44.7 mmHg (32.0-48.0) 07/22/21 21:09 ABG pCO2 22.4 mm Hg 07/24/21 03:29 POC ABG pO2 189.2 mmHg (83-108) H 07/22/21 21:09 ABG pO2 80.2 mm Hg (80.0-90.0) 07/24/21 03:29 POC ABG HCO3 18.8 07/22/21 21:09 ABG HCO3 18.5 mmol/L (20.0-26.0) L 07/24/21 03:29 ABG O2 Saturation 95.8 % (95.0-99.0) 07/24/21 03:29 POC ABG Base Excess -8.3 07/22/21 21:09 ABG Base Excess -2.6 mmol/L (-2.0-3.0) L 07/24/21 03:29 ABG Hemoglobin 11.3 gm/dl (14.0-18.0) L 07/24/21 03:29 ABG Oxyhemoglobin 98.7 (94-98) H 07/22/21 21:09 ABG Carboxyhemoglobin 0.3 % (0.0-5.0) 07/24/21 03:29 ABG Methemoglobin 0.3 % (0.0-1.5) 07/24/21 03:29 ABG Sodium 141.6 mmol/L (136.0-145.0) 07/22/21 21:09 ABG Potassium 4.6 mmol/L (3.40-4.50) H 07/22/21 21:09 ABG Chloride 97.0 mmol/L (98-107) L 07/22/21 21:09 VBG pH 7.030 (7.320-7.420) L* 07/22/21 19:18 Oxyhemoglobin 95.2 % (95.0-99.0) 07/24/21 03:29 Carboxyhemoglobin 0.3 (0.5-1.5) L 07/22/21 21:09 FiO2 30 % 07/24/21 03:29 FiO2 % 100.0 07/22/21 21:09 Sodium 138 mmol/L (137-145) D 07/26/21 04:35 Potassium 3.6 mmol/L (3.6-5.0) D 07/26/21 04:35 Chloride 102.0 mmol/L (98-107) 07/26/21 04:35 Carbon Dioxide 22 mmol/L (22-30) 07/26/21 04:35 Anion Gap 18 mmol/L 07/26/21 04:35 BUN 12 mg/dL (9-20) 07/26/21 04:35 Creatinine 1.1 mg/dL (0.8-1.3) 07/26/21 04:35 Estimated GFR > 60 ml/min 07/26/21 04:35 BUN/Creatinine Ratio 11 % 07/26/21 04:35 Glucose 145 mg/dL (75-100) H 07/26/21 04:35 POC Glucose 138 mg/dL (70-105) H 07/26/21 21:41 Hemoglobin A1c 9.8 % (4-6) H 07/22/21 22:46 Lactic Acid 1.40 mmol/L (0.7-2.0) 07/24/21 00:16 Calcium 9.0 mg/dL (8.4-10.2) 07/26/21 04:35 Phosphorus 5.10 mg/dL (2.5-4.5) H D 07/25/21 04:56 Magnesium 2.20 mg/dL (1.7-2.3) 07/24/21 04:41 Ferritin 657.6 ng/mL (30.0-300.0) H 07/24/21 04:41 Total Bilirubin 0.80 mg/dL (0.1-1.2) 07/26/21 04:35 AST 64 units/L (5-40) H 07/26/21 04:35 ALT 44 units/L (7-56) 07/26/21 04:35 Alkaline Phosphatase 136 units/L (35-129) H 07/26/21 04:35 Total Creatine Kinase 166 units/L (55-170) 07/22/21 19:18 CK-MB (CK-2) 3.2 ng/mL (0.0-4.0) 07/22/21 19:18 CK-MB (CK-2) Rel Index 1.9 (0-4) 07/22/21 19:18 Troponin T < 0.010 ng/mL (0.00-0.029) 07/22/21 19:18 Total Protein 8.3 g/dL (6.3-8.2) H D 07/26/21 04:35 Albumin 3.4 g/dL (3.9-5) L 07/26/21 04:35 Albumin/Globulin Ratio 0.7 % 07/26/21 04:35 TSH 2.290 mlU/mL (0.270-4.200) 07/24/21 04:41 Arterial Blood Ionized Calcium 5.6 mg/dL (4.6-5.3) H 07/22/21 21:09 Urine Color Straw (Yellow) 07/22/21 20:01 Urine Turbidity Clear (Clear) 07/22/21 20: Urine pH 6.0 (5.0-7.0) 07/22/21 20:01 Ur Specific [place] 1.033 (1.003-1.030) H 07/22/21 20:01 Urine Protein 100 mg/dl mg/dL (Negative) 07/22/21 20:01 Urine Glucose (UA) >=500 mg/dL (Negative) 07/22/21 20:01 Urine Ketones Neg mg/dL (Negative) 07/22/21 20:01 Urine Blood Mod (Negative) 07/22/21 20:01 Urine Nitrite Neg (Negative) 07/22/21 20:01 Urine Bilirubin Neg (Negative) 07/22/21 20:01 Urine Urobilinogen < 2.0 mg/dL (<2.0) 07/22/21 20:01 Ur Leukocyte Esterase Neg (Negative) 07/22/21 20:01 Urine WBC (Auto) 2.0 /HPF (0.0-6.0) 07/22/21 20:01 Urine RBC (Auto) 1.0 /HPF (0.0-6.0) 07/22/21 20:01 Urine Bacteria (Auto) 1+ /HPF (Negative) 07/22/21 20:01 Urine Mucus Few /HPF 07/22/21 20:01 Salicylates 0.6 mg/dL (2.8-20.0) L 07/22/21 19:18 Urine Opiates Screen Negative 07/22/21 20:01 Urine Methadone Screen Negative 07/22/21 20:01 Acetaminophen 5.0 ug/mL (10.0-30.0) L 07/22/21 19:18 Ur Barbiturates Screen Negative 07/22/21 20:01 Ur Phencyclidine Scrn Negative 07/22/21 20:01 Ur Amphetamines Screen Negative 07/22/21 20:01 U Benzodiazepines Scrn Negative 07/22/21 20:01 Urine Cocaine Screen Negative 07/22/21 20:01 U Marijuana (THC) Screen Negative 07/22/21 20:01 Drugs of Abuse Note Disclamer 07/22/21 20:01 Plasma/Serum Alcohol < 0.01 % (0-0.07) 07/22/21 19:18 Microbiology: Microbiology 07/22/21 21:29 Peripheral/Venous Blood Culture - Preliminary NO GROWTH AFTER 4 DAYS 07/22/21 21:50 Peripheral/Venous Blood Culture - Preliminary NO GROWTH AFTER 4 DAYS 07/22/21 23:05 Tracheal Aspirate Sputum Culture - Final Klebsiella Pneumoniae Corley/IV: Voiding Method Urinal Active Medications - Current Medications Current Medications: Generic Name Dose Route Start Last Admin Trade Name Freq PRN Reason Stop Dose Admin Acetaminophen 650 mg 07/22/21 21:57 Acetaminophen 650 Mg Rect Supp UT Q6H PRN Pain MILD(1-3)/Fever >100.5/BERNAL Dextrose 50 ml 07/25/21 11:00 Dextrose 50% In Water (25gm) 50 Ml Syringe IV Q30MIN PRN Hypoglycemia Protocol Famotidine 20 mg 07/26/21 10:00 07/26/21 09:00 Famotidine 20 Mg Tab PO 20 mg QDAY ROMERO Administration Heparin Sodium (Porcine) 5,000 unit 07/23/21 06:00 07/27/21 06:05 Heparin 5,000 Unit/1 Ml Vial SUB-Q 5,000 unit Q8HR ROMERO Administration Hydralazine HCl 10 mg 07/25/21 01:38 07/27/21 06:05 Hydralazine 20 Mg/1 Ml Inj IV 10 mg Q6H PRN Administration Hypertension Insulin Human Isoph/Insulin Regular 7 unit 07/26/21 17:00 07/26/21 17:15 Insulin Nph/Regular 70/30 Inj SUB-Q 7 unit BIDDIAB ROMERO Administration Insulin Human Lispro 0 unit 07/25/21 11:30 07/26/21 21:48 Insulin Lispro 100 Unit/Ml SUB-Q Not Given ACHS ROMERO Protocol Levetiracetam 500 mg 07/26/21 22:00 07/26/21 21:43 Levetiracetam 500 Mg Tab PO 500 mg BID ROMERO Administration Lorazepam 2 mg 07/23/21 05:10 07/25/21 11:00 Lorazepam 2 Mg/Ml Vial IV 2 mg Q1H PRN Administration CIWA-Ar 8-15 Lorazepam 4 mg 07/23/21 05:10 07/24/21 07:32 Lorazepam 2 Mg/Ml Vial IV 4 mg Q1H PRN Administration CIWA-Ar 16-25 Lorazepam 4 mg 07/23/21 05:10 Lorazepam 2 Mg/Ml Vial IV Q15MIN PRN CIWA-Ar >25 Magnesium Hydroxide 30 ml 07/22/21 21:57 Magnesium Hydroxide (Mom) Oral Liqd Udc PO Q4H PRN Constipation Morphine Sulfate 2 mg 07/22/21 21:57 07/24/21 07:32 Morphine 2 Mg/1 Ml Inj IV 2 mg Q4H PRN Administration Pain, Moderate (4-6) Morphine Sulfate 4 mg 07/22/21 21:57 Morphine 4 Mg/1 Ml Inj IV Q4H PRN Pain , Severe (7-10) Senna/Docusate Sodium 1 tab 07/25/21 22:00 07/26/21 21:43 Sennosides/Docusate Sodium 8.6/50 Mg Tab PO 1 tab QHS ROMERO Administration Sodium Chloride 10 ml 07/22/21 22:00 07/26/21 21:43 Sodium Chloride 0.9% 10 Ml Flush Syringe IV 10 ml BID ROMERO Administration Sodium Chloride 10 ml 07/22/21 21:57 Sodium Chloride 0.9% 10 Ml Flush Syringe IV PRN PRN LINE FLUSH Nutrition/Malnutrition Assess - Dietary Evaluation Nutrition/Malnutrition Findings: Nutrition Notes Start: 07/23/21 09:29 Freq: Status: Active Protocol: Document 07/25/21 15:19 [facility] (Rec: 07/25/21 15:23 [facility] [id number]) Nutrition Notes Initial or Follow up Reassessment Current Diagnosis Acute Kidney Injury,Diabetes Other Pertinent Diagnosis Acute metabolic encephalopathy , Seizures, EtOH dependence Current Diet Consistent CHO Labs/Tests Na 152 Phos 5.1 POC Glu range since last assessment: 117-173 Pertinent Medications Reviewed Height 5 ft 8 in Weight 76.5 kg [place] Body Weight (kg) 70.00 BMI 25.6 Weight Status Appropriate Subjective/Other Information Pt extubated yesterday and diet advanced for breakfast this am. Pt remains on [facility] protocol. Burn Absent Trauma Absent #1 Nutrition Diagnosis Inadequate oral intake As Evidenced by Signs and Symptoms diet advanced this am; pt no longer on vent support Diagnosis Progress(for reassessment Improved documentation) Is patient on ventilator? No Is Patient Ambulatory and/or Out of Bed No REE-([facility]-confined to bed) [phone] Calculation Used for Recommendations [facility] Additional Notes Protein: 1.2-2g/kg (92-153g) Fluid: 1 ml/kcal or per MD Nutrition Intervention Change Diet Order: Continue current diet order Goal #1 PO intake to meet at least 75% energy and pro needs Anticipated Discharge Needs: None identified at this time Follow-Up By: 07/27/21 Additional Comments F/U: intakes, need for ONS
[2021-07-25] MEDS: SENNOSIDES/DOCUSATE SODIUM 8.6/50 MG TAB PO SCH (21:55)
[2021-07-26] MEDS: hydrALAZINE 20 MG/1 ML INJ IV PRN ×3 (03:33→23:44)
[2021-07-26] MEDS: HEPARIN 5,000 UNIT/1 ML VIAL SUB-Q SCH ×3 (05:15→21:43)
[2021-07-26 05:20] LABS: Alanine Aminotransferase 44 units/L (7-56); Albumin 3.4 g/dL (3.9-5); BUN/Creatinine Ratio 11; Blood Urea Nitrogen 12 mg/dL (9-20); Hemolysis Index 6
[2021-07-26] MEDS: INSULIN LISPRO 100 UNIT/ML SUB-Q SCH ×4 (07:41→21:48)
[2021-07-26] MEDS: INSULIN NPH/REGULAR 70/30 INJ SUB-Q SCH ×2 (08:59→17:15)
[2021-07-26] MEDS: levETIRAcetam 500 MG in DEXTROSE 5% IN WATER 100 ML IV SCH (09:00)
[2021-07-26] MEDS: FAMOTIDINE 20 MG TAB PO SCH (09:00)
[2021-07-26] MEDS ORDERED: levETIRAcetam 500 MG TAB PO SCH (10:00)
--- NOTE | 2021-07-26 12:29 | Progress Note ---
<MICHELLECHONGMarshall - Last Filed: 07/26/21 12:24> Assessment and Plan Assessment and plan: This is a 46-year-old female with EtOH, marijuana abuse and seizure disorder admitted post multiple seizures, DKA, acute encephalopathy and acute hypoxic respiratory distress. Neuro: Acute metabolic encephalopathy, seizure disorder, EtOH abuse -CT head with no acute intracranial abnormalities -EEG pending -Neurology consult, appreciate recommendations -Continue [facility] protocol -Maintain sleep-wake cycle -Avoid delirium -MRI brain shows not acute findings -Seizure/aspiration precautions Cardio: s/p SVT -Patient had SVT on route with EMS which was terminated with adenosine -Blood pressure monitoring per protocol Respiratory: Acute hypoxic respiratory failure -Patient was intubated on 07/22- 07/24 -Currently on RA to nasal cannula -SPO2 monitoring -Pulmonary hygiene GI: Transaminitis (resolving) -GI consulted, appreciate recommendations -Signed off today -Transaminitis likely secondary to EtOH abuse, acute ischemic injury and malnutrition -Avoid hypotension/epigastric medications per GI -06/2011 ultrasound completed which showed findings suggestive of hepatic steatosis, unremarkable UA system, pancreas and distal aorta obscured; limited exam due to bowel gas -PPI -BR: Senokot -24-hour -3070 mL : Acute kidney injury likely secondary to vasomotor nephropathy -Nephrology consulted, appreciate recommendations -Received renal contrast on 07/22 -S/p MIVF -Trend BMP -Per nephrology: Likely baseline CKD -Avoid nephrotoxic medications -Renally dose medications -Renal ultrasound pending -Encourage p.o. intake Endo: DKA -S/p insulin drip -CC diet -Avoid hypoglycemia -Long-acting insulin, titrate as needed -Accu-Cheks every before meals at bedtime -SSI -Hemoglobin A1c 9.6 ID: SIRS -Presented with leukocytosis and acute hypoxic respiratory failure -Follow culture data -Follow-up blood cultures -Empiric antibiotics x1 in the ED Heme: Leukocytosis (resolved) -SCDs to bilateral proximal in bed -trend CBC -Transfuse hemoglobin less than 7 -Lovenox subcu The high probability of a clinically significant, sudden or life threatening deterioration of the [multiple] system(s) required my full and direct attention, intervention and personal management. The aggregate critical care time was [60] minutes. This time is in addition to time spent performing reported procedures but includes the following: [x] Data Review and interpretation [x] Patient assessment and monitoring of vital signs [x] Documentation [x] Medication orders and management Disposition Plan: transfer to floor Total Time Spent with Patient (Minutes): 60 History Interval history: This is a 46-year-old male with seizures, EtOH and marijuana abuse presented to emergency department on 07/22 via EMS for evaluation of multiple seizures with the least one witnessed seizure. Patient had SVT with EMS which was terminated with 6 mg of adenosine, Accu-Cheks in the field was said to be "high". Upon arrival to the emergency department patient was tachycardic and hypertensive with copious secretions in his oral cavity and was subsequently intubated in the emergency department. Work-up in the emergency department revealed leukocyto sis, hyperkalemia, metabolic acidosis, elevated blood glucose of 941, transaminitis, elevated BUN/creatinine and anion gap. CXR, CT head and CTA head/neck were negative. Patient was admitted to the hospitalist service with consults to neurology, CCM, nephrology and GI. 07/23/21- Patient remains intubated and sedate, RASS -4. Remains on DKA protocol, plan to transition to SubQ insulin once gap is closed. Renal function is improving and electrolytes were repleted. Will continue cont. IVF and monitor and replaced eletrolytes as needed. Serial BMP, phosp, and mag ordered. 07/24: Patient was extubated today. Awaiting ST evaluation. Insulin drip discontinued today and given one-time dose of long-acting insulin and place on SSI. Will start long-acting insulin scheduled once p.o. intake evaluated. 07/25: Patient passed bedside swallow eval today, and EEG was completed today. MRI brain completed. Patient will be transferred to the floor today. Neurology recommends follow-up with outpatient neurology. 07/26: no acute events overnight, transferred to floor Hospitalist Physical - Constitutional Vitals: Temp Pulse Resp BP Pulse Ox 98.9 F 114 H 18 136/97 96 07/26/21 11:56 07/26/21 11:56 07/26/21 11:56 07/26/21 11:56 07/26/21 11:56 General appearance: Present: no acute distress, well-nourished, other - EENT Eyes: Present: PERRL, EOM intact ENT: hearing intact, clear oral mucosa, dentition normal - Neck Neck: Present: normal ROM - Respiratory Respiratory effort: normal Respiratory: bilateral: CTA - Cardiovascular Rhythm: regular Heart Sounds: Present: S1 & S2. Absent: systolic murmur, diastolic murmur - Extremities Extremities: no ischemia, pulses intact, pulses symmetrical, No edema, normal temperature, normal color, Full ROM Peripheral Pulses: within normal limits - Abdominal General gastrointestinal: soft, non-tender, non-distended, normal bowel sounds - Integumentary Integumentary: Present: warm, dry - Psychiatric Psychiatric: cooperative - Neurologic Neurologic: CNII-XII intact, no focal deficits, moves all extremities - Allied Health Allied health notes reviewed: nursing, RT, social work HEART Score - HEART Score Troponin: Troponin T < 0.010 ng/mL (0.00-0.029) 07/22/21 19:18 Results - Labs CBC & Chem 7: 07/25/21 04:56 07/26/21 04:35 Labs: Laboratory Last Values WBC 9.2 K/mm3 (4.5-11.0) 07/25/21 04:56 RBC 3.43 M/mm3 (3.65-5.03) L 07/25/21 04:56 Hgb 11.9 gm/dl (11.8-15.2) 07/25/21 04:56 Hct 36.6 % (35.5-45.6) 07/25/21 04:56 MCV 107 fl (84-94) H 07/25/21 04:56 MCH 35 pg (28-32) H 07/25/21 04:56 MCHC 33 % (32-34) 07/25/21 04:56 RDW 14.9 % (13.2-15.2) 07/25/21 04:56 Plt Count 233 K/mm3 (140-440) 07/25/21 04:56 [place] % (Auto) 5.6 % (0.0-7.3) 07/22/21 19:18 Baso # (Auto) 0.2 K/mm3 (0.0-0.1) H 07/22/21 19:18 Add Manual Diff Complete 07/22/21 19:18 Total Counted 100 07/22/21 19:18 Seg Neutrophils % 78.4 % (40.0-70.0) H 07/22/21 19:18 Seg Neuts % (Manual) 75.0 % (40.0-70.0) H 07/22/21 19:18 Band Neutrophils % 4.0 % 07/22/21 19:18 Lymphocytes % (Manual) 17.0 % (13.4-35.0) 07/22/21 19:18 Monocytes % (Manual) 3.0 % (0.0-7.3) 07/22/21 19:18 Eosinophils % (Manual) 1.0 % (0.0-4.3) 07/22/21 19:18 Nucleated RBC % Not Reportable 07/22/21 19:18 Seg Neutrophils # Man 13.3 K/mm3 (1.8-7.7) H 07/22/21 19:18 Band Neutrophils # 0.7 K/mm3 07/22/21 19:18 Lymphocytes # (Manual) 3.0 K/mm3 (1.2-5.4) 07/22/21 19:18 Abs React Lymphs (Man) 0.0 K/mm3 07/22/21 19:18 Monocytes # (Manual) 0.5 K/mm3 (0.0-0.8) 07/22/21 19:18 Eosinophils # (Manual) 0.2 K/mm3 (0.0-0.4) 07/22/21 19:18 Basophils # (Manual) 0.0 K/mm3 (0.0-0.1) 07/22/21 19:18 Metamyelocytes # 0.0 K/mm3 07/22/21 19:18 Myelocytes # 0.0 K/mm3 07/22/21 19:18 Promyelocytes # 0.0 K/mm3 07/22/21 19:18 Blast Cells # 0.0 K/mm3 07/22/21 19:18 WBC Morphology Not Reportable 07/22/21 19:18 Hypersegmented Neuts Not Reportable 07/22/21 19:18 Hyposegmented Neuts Not Reportable 07/22/21 19:18 Hypogranular Neuts Not Reportable 07/22/21 19:18 Smudge Cells Not Reportable 07/22/21 19:18 Toxic Granulation Not Reportable 07/22/21 19:18 Toxic Vacuolation Not Reportable 07/22/21 19:18 Dohle Bodies Not Reportable 07/22/21 19:18 Pelger-Huet Anomaly Not Reportable 07/22/21 19:18 Jacek Rods Not Reportable 07/22/21 19:18 Platelet Estimate Consistent w auto 07/22/21 19:18 Clumped Platelets Not Reportable 07/22/21 19:18 Plt Clumps, EDTA Not Reportable 07/22/21 19:18 Large Platelets Not Reportable 07/22/21 19:18 Giant Platelets Not Reportable 07/22/21 19:18 Platelet Satelliting Not Reportable 07/22/21 19:18 Plt Morphology Comment Not Reportable 07/22/21 19:18 RBC Morphology Not Reportable 07/22/21 19:18 Dimorphic RBCs Not Reportable 07/22/21 19:18 Polychromasia Not Reportable 07/22/21 19:18 Hypochromasia Not Reportable 07/22/21 19:18 Poikilocytosis Not Reportable 07/22/21 19:18 Anisocytosis 1+ 07/22/21 19:18 Microcytosis Not Reportable 07/22/21 19:18 Macrocytosis 1+ 07/22/21 19:18 Spherocytes Not Reportable 07/22/21 19:18 Pappenheimer Bodies Not Reportable 07/22/21 19:18 Sickle Cells Not Reportable 07/22/21 19:18 Target Cells Not Reportable 07/22/21 19:18 Tear Drop Cells Not Reportable 07/22/21 19:18 Ovalocytes Not Reportable 07/22/21 19:18 Helmet Cells Not Reportable 07/22/21 19:18 [place] Bodies Not Reportable 07/22/21 19:18 [place] Rings Not Reportable 07/22/21 19:18 Yoandy Cells Not Reportable 07/22/21 19:18 Bite Cells Not Reportable 07/22/21 19:18 Crenated Cell Not Reportable 07/22/21 19:18 Elliptocytes Not Reportable 07/22/21 19:18 Acanthocytes (Spur) Not Reportable 07/22/21 19:18 Rouleaux Not Reportable 07/22/21 19:18 Hemoglobin C Crystals Not Reportable 07/22/21 19:18 Schistocytes Not Reportable 07/22/21 19:18 Malaria parasites Not Reportable 07/22/21 19:18 Dieudonne Bodies Not Reportable 07/22/21 19:18 Hem Pathologist Commnt No 07/22/21 19:18 PT 17.4 Sec. (12.2-14.9) H 07/22/21 19:18 INR 1.29 (0.87-1.13) H 07/22/21 19:18 APTT 28.3 Sec. (24.2-36.6) 07/22/21 19:18 Thrombin Time 18.0 Sec. (15.1-19.6) 07/22/21 19:18 ABG pH 7.534 pH Units (7.350-7.450) H 07/24/21 03:29 POC ABG pCO2 44.7 mmHg (32.0-48.0) 07/22/21 21:09 ABG pCO2 22.4 mm Hg 07/24/21 03:29 POC ABG pO2 189.2 mmHg (83-108) H 07/22/21 21:09 ABG pO2 80.2 mm Hg (80.0-90.0) 07/24/21 03:29 POC ABG HCO3 18.8 07/22/21 21:09 ABG HCO3 18.5 mmol/L (20.0-26.0) L 07/24/21 03:29 ABG O2 Saturation 95.8 % (95.0-99.0) 07/24/21 03:29 POC ABG Base Excess -8.3 07/22/21 21:09 ABG Base Excess -2.6 mmol/L (-2.0-3.0) L 07/24/21 03:29 ABG Hemoglobin 11.3 gm/dl (14.0-18.0) L 07/24/21 03:29 ABG Oxyhemoglobin 98.7 (94-98) H 07/22/21 21:09 ABG Carboxyhemoglobin 0.3 % (0.0-5.0) 07/24/21 03:29 ABG Methemoglobin 0.3 % (0.0-1.5) 07/24/21 03:29 ABG Sodium 141.6 mmol/L (136.0-145.0) 07/22/21 21:09 ABG Potassium 4.6 mmol/L (3.40-4.50) H 07/22/21 21:09 ABG Chloride 97.0 mmol/L (98-107) L 07/22/21 21:09 VBG pH 7.030 (7.320-7.420) L* 07/22/21 19:18 Oxyhemoglobin 95.2 % (95.0-99.0) 07/24/21 03:29 Carboxyhemoglobin 0.3 (0.5-1.5) L 07/22/21 21:09 FiO2 30 % 07/24/21 03:29 FiO2 % 100.0 07/22/21 21:09 Sodium 138 mmol/L (137-145) D 07/26/21 04:35 Potassium 3.6 mmol/L (3.6-5.0) D 07/26/21 04:35 Chloride 102.0 mmol/L (98-107) 07/26/21 04:35 Carbon Dioxide 22 mmol/L (22-30) 07/26/21 04:35 Anion Gap 18 mmol/L 07/26/21 04:35 BUN 12 mg/dL (9-20) 07/26/21 04:35 Creatinine 1.1 mg/dL (0.8-1.3) 07/26/21 04:35 Estimated GFR > 60 ml/min 07/26/21 04:35 BUN/Creatinine Ratio 11 % 07/26/21 04:35 Glucose 145 mg/dL (75-100) H 07/26/21 04:35 POC Glucose 157 mg/dL (70-105) H 07/26/21 11:06 Hemoglobin A1c 9.8 % (4-6) H 07/22/21 22:46 Lactic Acid 1.40 mmol/L (0.7-2.0) 07/24/21 00:16 Calcium 9.0 mg/dL (8.4-10.2) 07/26/21 04:35 Phosphorus 5.10 mg/dL (2.5-4.5) H D 07/25/21 04:56 Magnesium 2.20 mg/dL (1.7-2.3) 07/24/21 04:41 Ferritin 657.6 ng/mL (30.0-300.0) H 07/24/21 04:41 Total Bilirubin 0.80 mg/dL (0.1-1.2) 07/26/21 04:35 AST 64 units/L (5-40) H 07/26/21 04:35 ALT 44 units/L (7-56) 07/26/21 04:35 Alkaline Phosphatase 136 units/L (35-129) H 07/26/21 04:35 Total Creatine Kinase 166 units/L (55-170) 07/22/21 19:18 CK-MB (CK-2) 3.2 ng/mL (0.0-4.0) 07/22/21 19:18 CK-MB (CK-2) Rel Index 1.9 (0-4) 07/22/21 19:18 Troponin T < 0.010 ng/mL (0.00-0.029) 07/22/21 19:18 Total Protein 8.3 g/dL (6.3-8.2) H D 07/26/21 04:35 Albumin 3.4 g/dL (3.9-5) L 07/26/21 04:35 Albumin/Globulin Ratio 0.7 % 07/26/21 04:35 TSH 2.290 mlU/mL (0.270-4.200) 07/24/21 04:41 Arterial Blood Ionized Calcium 5.6 mg/dL (4.6-5.3) H 07/22/21 21:09 Urine Color Straw (Yellow) 07/22/21 20:01 Urine Turbidity Clear (Clear) 07/22/21 20:01 Urine pH 6.0 (5.0-7.0) 07/22/21 20:01 Ur Specific [place] 1.033 (1.003-1.030) H 07/22/21 20:01 Urine Protein 100 mg/dl mg/dL (Negative) 07/22/21 20:01 Urine Glucose (UA) >=500 mg/dL (Negative) 07/22/21 20:01 Urine Ketones Neg mg/dL (Negative) 07/22/21 20:01 Urine Blood Mod (Negative) 07/22/21 20:01 Urine Nitrite Neg (Negative) 07/22/21 20:01 Urine Bilirubin Neg (Negative) 07/22/21 20:01 Urine Urobilinogen < 2.0 mg/dL (<2.0) 07/22/21 20:01 Ur Leukocyte Esterase Neg (Negative) 07/22/21 20:01 Urine WBC (Auto) 2.0 /HPF (0.0-6.0) 07/22/21 20:01 Urine RBC (Auto) 1.0 /HPF (0.0-6.0) 07/22/21 20:01 Urine Bacteria (Auto) 1+ /HPF (Negative) 07/22/21 20:01 Urine Mucus Few /HPF 07/22/21 20:01 Salicylates 0.6 mg/dL (2.8-20.0) L 07/22/21 19:18 Urine Opiates Screen Negative 07/22/21 20:01 Urine Methadone Screen Negative 07/22/21 20:01 Acetaminophen 5.0 ug/mL (10.0-30.0) L 07/22/21 19:18 Ur Barbiturates Screen Negative 07/22/21 20:01 Ur Phencyclidine Scrn Negative 07/22/21 20:01 Ur Amphetamines Screen Negative 07/22/21 20:01 U Benzodiazepines Scrn Negative 07/22/21 20:01 Urine Cocaine Screen Negative 07/22/21 20:01 U Marijuana (THC) Screen Negative 07/22/21 20:01 Drugs of Abuse Note Disclamer 07/22/21 20:01 Plasma/Serum Alcohol < 0.01 % (0-0.07) 07/22/21 19:18 Microbiology: Microbiology 07/22/21 23:05 Tracheal Aspirate Sputum Culture - Preliminary Gram Negative Todd 07/22/21 21:29 Peripheral/Venous Blood Culture - Preliminary NO GROWTH AFTER 72 HOURS 07/22/21 21:50 Peripheral/Venous Blood Culture - Preliminary NO GROWTH AFTER 72 HOURS Corley/IV: Voiding Method Urinal Active Medications - Current Medications Current Medications: Generic Name Dose Route Start Last Admin Trade Name Freq PRN Reason Stop Dose Admin Acetaminophen 650 mg 07/22/21 21:57 Acetaminophen 650 Mg Rect Supp [place] Q6H PRN Pain MILD(1-3)/Fever >100.5/BERNAL Dextrose 50 ml 07/25/21 11:00 Dextrose 50% In Water (25gm) 50 Ml Syringe IV Q30MIN PRN Hypoglycemia Protocol Famotidine 20 mg 07/26/21 10:00 07/26/21 09:00 Famotidine 20 Mg Tab PO 20 mg QDAY ROMERO Administration Heparin Sodium (Porcine) 5,000 unit 07/23/21 06:00 07/26/21 05:15 Heparin 5,000 Unit/1 Ml Vial SUB-Q 5,000 unit Q8HR ROMERO Administration Hydralazine HCl 10 mg 07/25/21 01:38 07/26/21 03:33 Hydralazine 20 Mg/1 Ml Inj IV 10 mg Q6H PRN Administration Hypertension Insulin Human Isoph/Insulin Regular 5 unit 07/25/21 11:00 07/26/21 08:59 Insulin Nph/Regular 70/30 Inj SUB-Q 5 unit BIDDIAB ROMERO Administration Insulin Human Lispro 0 unit 07/25/21 11:30 07/26/21 12:18 Insulin Lispro 100 Unit/Ml SUB-Q 2 unit ACHS ROMERO Administration Protocol Levetiracetam 500 mg 07/26/21 22:00 Levetiracetam 500 Mg Tab PO BID ROMERO Lorazepam 2 mg 07/23/21 05:10 07/25/21 11:00 Lorazepam 2 Mg/Ml Vial IV 2 mg Q1H PRN Administration CIWA-Ar 8-15 Lorazepam 4 mg 07/23/21 05:10 07/24/21 07:32 Lorazepam 2 Mg/Ml Vial IV 4 mg Q1H PRN Administration CIWA-Ar 16-25 Lorazepam 4 mg 07/23/21 05:10 Lorazepam 2 Mg/Ml Vial IV Q15MIN PRN CIWA-Ar >25 Magnesium Hydroxide 30 ml 07/22/21 21:57 Magnesium Hydroxide (Mom) Oral Liqd Udc PO Q4H PRN Constipation Morphine Sulfate 2 mg 07/22/21 21:57 07/24/21 07:32 Morphine 2 Mg/1 Ml Inj IV 2 mg Q4H PRN Administration Pain, Moderate (4-6) Morphine Sulfate 4 mg 07/22/21 21:57 Morphine 4 Mg/1 Ml Inj IV Q4H PRN Pain , Severe (7-10) Senna/Docusate Sodium 1 tab 07/25/21 22:00 07/25/21 21:55 Sennosides/Docusate Sodium 8.6/50 Mg Tab PO 1 tab QHS ROMERO Administration Sodium Chloride 10 ml 07/22/21 22:00 07/25/21 21:55 Sodium Chloride 0.9% 10 Ml Flush Syringe IV 10 ml BID ROMERO Administration Sodium Chloride 10 ml 07/22/21 21:57 Sodium Chloride 0.9% 10 Ml Flush Syringe IV PRN PRN LINE FLUSH Nutrition/Malnutrition Assess - Dietary Evaluation Nutrition/Malnutrition Findings: Nutrition Notes Start: 07/23/21 09:29 Freq: Status: Active Protocol: Document 07/25/21 15:19 TREVOR (Rec: 07/25/21 15:23 TREVOR [id number]) Nutrition Notes Initial or Follow up Reassessment Current Diagnosis Acute Kidney Injury,Diabetes Other Pertinent Diagnosis Acute metabolic encephalopathy , Seizures, EtOH dependence Current Diet Consistent CHO Labs/Tests Na 152 Phos 5.1 POC Glu range since last assessment: 117-173 Pertinent Medications Reviewed Height 5 ft 8 in Weight 76.5 kg [place] Body Weight (kg) 70.00 BMI 25.6 Weight Status Appropriate Subjective/Other Information Pt extubated yesterday and diet advanced for breakfast this am. Pt remains on CIWA protocol. Burn Absent Trauma Absent #1 Nutrition Diagnosis Inadequate oral intake As Evidenced by Signs and Symptoms diet advanced this am; pt no longer on vent support Diagnosis Progress(for reassessment Improved documentation) Is patient on ventilator? No Is Patient Ambulatory and/or Out of Bed No REE-([facility]in-[facility]. Jeor-confined to bed) [phone] Calculation Used for Recommendations [facility] Additional Notes Protein: 1.2-2g/kg (92-153g) Fluid: 1 ml/kcal or per Nutrition Intervention Change Diet Order: Continue current diet order Goal #1 PO intake to meet at least 75% energy and pro needs Anticipated Discharge Needs: None identified at this time Follow-Up By: 07/27/21 Additional Comments F/U: intakes, need for ONS <ROSELINE OLIVEROS - Last Filed: 07/27/21 07:17> Assessment and Plan Assessment and plan: I saw and evaluated the patient. Discussed with the nurse practitioner and agree with their findings and plan as documented in this note. Hospitalist Physical - Constitutional Vitals: Temp Pulse Resp BP Pulse Ox 97.9 F 106 H 18 157/108 97 07/27/21 04:40 07/27/21 04:40 07/27/21 04:40 07/27/21 04:40 07/27/21 04:40 HEART Score - HEART Score Troponin: Troponin T < 0.010 ng/mL (0.00-0.029) 07/22/21 19:18 Results - Labs CBC & Chem 7: 07/25/21 04:56 07/26/21 04:35 Labs: Laboratory Last Values WBC 9.2 K/mm3 (4.5-11.0) 07/25/21 04:56 RBC 3.43 M/mm3 (3.65-5.03) L 07/25/21 04:56 Hgb 11.9 gm/dl (11.8-15.2) 07/25/21 04:56 Hct 36.6 % (35.5-45.6) 07/25/21 04:56 MCV 107 fl (84-94) H 07/25/21 04:56 MCH 35 pg (28-32) H 07/25/21 04:56 MCHC 33 % (32-34) 07/25/21 04:56 RDW 14.9 % (13.2-15.2) 07/25/21 04:56 Plt Count 233 K/mm3 (140-440) 07/25/21 04:56 [place] % (Auto) 5.6 % (0.0-7.3) 07/22/21 19:18 Baso # (Auto) 0.2 K/mm3 (0.0-0.1) H 07/22/21 19:18 Add Manual Diff Complete 07/22/21 19:18 Total Counted 100 07/22/21 19:18 Seg Neutrophils % 78.4 % (40.0-70.0) H 07/22/21 19:18 Seg Neuts % (Manual) 75.0 % (40.0-70.0) H 07/22/21 19:18 Band Neutrophils % 4.0 % 07/22/21 19:18 Lymphocytes % (Manual) 17.0 % (13.4-35.0) 07/22/21 19:18 Monocytes % (Manual) 3.0 % (0.0-7.3) 07/22/21 19:18 Eosinophils % (Manual) 1.0 % (0.0-4.3) 07/22/21 19:18 Nucleated RBC % Not Reportable 07/22/21 19:18 Seg Neutrophils # Man 13.3 K/mm3 (1.8-7.7) H 07/22/21 19:18 Band Neutrophils # 0.7 K/mm3 07/22/21 19:18 Lymphocytes # (Manual) 3.0 K/mm3 (1.2-5.4) 07/22/21 19:18 Abs React Lymphs (Man) 0.0 K/mm3 07/22/21 19:18 Monocytes # (Manual) 0.5 K/mm3 (0.0-0.8) 07/22/21 19:18 Eosinophils # (Manual) 0.2 K/mm3 (0.0-0.4) 07/22/21 19:18 Basophils # (Manual) 0.0 K/mm3 (0.0-0.1) 07/22/21 19:18 Metamyelocytes # 0.0 K/mm3 07/22/21 19:18 Myelocytes # 0.0 K/mm3 07/22/21 19:18 Promyelocytes # 0.0 K/mm3 07/22/21 19:18 Blast Cells # 0.0 K/mm3 07/22/21 19:18 WBC Morphology Not Reportable 07/22/21 19:18 Hypersegmented Neuts Not Reportable 07/22/21 19:18 Hyposegmented Neuts Not Reportable 07/22/21 19:18 Hypogranular Neuts Not Reportable 07/22/21 19:18 Smudge Cells Not Reportable 07/22/21 19:18 Toxic Granulation Not Reportable 07/22/21 19:18 Toxic Vacuolation Not Reportable 07/22/21 19:18 Dohle Bodies Not Reportable 07/22/21 19:18 Pelger-Huet Anomaly Not Reportable 07/22/21 19:18 Jacek Rods Not Reportable 07/22/21 19:18 Platelet Estimate Consistent w auto 07/22/21 19:18 Clumped Platelets Not Reportable 07/22/21 19:18 Plt Clumps, EDTA Not Reportable 07/22/21 19:18 Large Platelets Not Reportable 07/22/21 19:18 Giant Platelets Not Reportable 07/22/21 19:18 Platelet Satelliting Not Reportable 07/22/21 19:18 Plt Morphology Comment Not Reportable 07/22/21 19:18 RBC Morphology Not Reportable 07/22/21 19:18 Dimorphic RBCs Not Reportable 07/22/21 19:18 Polychromasia Not Reportable 07/22/21 19:18 Hypochromasia Not Reportable 07/22/21 19:18 Poikilocytosis Not Reportable 07/22/21 19:18 Anisocytosis 1+ 07/22/21 19:18 Microcytosis Not Reportable 07/22/21 19:18 Macrocytosis 1+ 07/22/21 19:18 Spherocytes Not Reportable 07/22/21 19:18 Pappenheimer Bodies Not Reportable 07/22/21 19:18 Sickle Cells Not Reportable 07/22/21 19:18 Target Cells Not Reportable 07/22/21 19:18 Tear Drop Cells Not Reportable 07/22/21 19:18 Ovalocytes Not Reportable 07/22/21 19:18 Helmet Cells Not Reportable 07/22/21 19:18 [place] Bodies Not Reportable 07/22/21 19:18 [place] Rings Not Reportable 07/22/21 19:18 [place] Cells Not Reportable 07/22/21 19:18 Bite Cells Not Reportable 07/22/21 19:18 Crenated Cell Not Reportable 07/22/21 19:18 Elliptocytes Not Reportable 07/22/21 19:18 Acanthocytes (Spur) Not Reportable 07/22/21 19:18 Rouleaux Not Reportable 07/22/21 19:18 Hemoglobin C Crystals Not Reportable 07/22/21 19:18 Schistocytes Not Reportable 07/22/21 19:18 Malaria parasites Not Reportable 07/22/21 19:18 Dieudonne Bodies Not Reportable 07/22/21 19:18 Hem Pathologist Commnt No 07/22/21 19:18 PT 17.4 Sec. (12.2-14.9) H 07/22/21 19:18 INR 1.29 (0.87-1.13) H 07/22/21 19:18 APTT 28.3 Sec. (24.2-36.6) 07/22/21 19:18 Thrombin Time 18.0 Sec. (15.1-19.6) 07/22/21 19:18 ABG pH 7.534 pH Units (7.350-7.450) H 07/24/21 03:29 POC ABG pCO2 44.7 mmHg (32.0-48.0) 07/22/21 21:09 ABG pCO2 22.4 mm Hg 07/24/21 03:29 POC ABG pO2 189.2 mmHg (83-108) H 07/22/21 21:09 ABG pO2 80.2 mm Hg (80.0-90.0) 07/24/21 03:29 POC ABG HCO3 18.8 07/22/21 21:09 ABG HCO3 18.5 mmol/L (20.0-26.0) L 07/24/21 03:29 ABG O2 Saturation 95.8 % (95.0-99.0) 07/24/21 03:29 POC ABG Base Excess -8.3 07/22/21 21:09 ABG Base Excess -2.6 mmol/L (-2.0-3.0) L 07/24/21 03:29 ABG Hemoglobin 11.3 gm/dl (14.0-18.0) L 07/24/21 03:29 ABG Oxyhemoglobin 98.7 (94-98) H 07/22/21 21:09 ABG Carboxyhemoglobin 0.3 % (0.0-5.0) 07/24/21 03:29 ABG Methemoglobin 0.3 % (0.0-1.5) 07/24/21 03:29 ABG Sodium 141.6 mmol/L (136.0-145.0) 07/22/21 21:09 ABG Potassium 4.6 mmol/L (3.40-4.50) H 07/22/21 21:09 ABG Chloride 97.0 mmol/L (98-107) L 07/22/21 21:09 VBG pH 7.030 (7.320-7.420) L* 07/22/21 19:18 Oxyhemoglobin 95.2 % (95.0-99.0) 07/24/21 03:29 Carboxyhemoglobin 0.3 (0.5-1.5) L 07/22/21 21:09 FiO2 30 % 07/24/21 03:29 FiO2 % 100.0 07/22/21 21:09 Sodium 138 mmol/L (137-145) D 07/26/21 04:35 Potassium 3.6 mmol/L (3.6-5.0) D 07/26/21 04:35 Chloride 102.0 mmol/L (98-107) 07/26/21 04:35 Carbon Dioxide 22 mmol/L (22-30) 07/26/21 04:35 Anion Gap 18 mmol/L 07/26/21 04:35 BUN 12 mg/dL (9-20) 07/26/21 04:35 Creatinine 1.1 mg/dL (0.8-1.3) 07/26/21 04:35 Estimated GFR > 60 ml/min 07/26/21 04:35 BUN/Creatinine Ratio 11 % 07/26/21 04:35 Glucose 145 mg/dL (75-100) H 07/26/21 04:35 POC Glucose 138 mg/dL (70-105) H 07/26/21 21:41 Hemoglobin A1c 9.8 % (4-6) H 07/22/21 22:46 Lactic Acid 1.40 mmol/L (0.7-2.0) 07/24/21 00:16 Calcium 9.0 mg/dL (8.4-10.2) 07/26/21 04:35 Phosphorus 5.10 mg/dL (2.5-4.5) H D 07/25/21 04:56 Magnesium 2.20 mg/dL (1.7-2.3) 07/24/21 04:41 Ferritin 657.6 ng/mL (30.0-300.0) H 07/24/21 04:41 Total Bilirubin 0.80 mg/dL (0.1-1.2) 07/26/21 04:35 AST 64 units/L (5-40) H 07/26/21 04:35 ALT 44 units/L (7-56) 07/26/21 04:35 Alkaline Phosphatase 136 units/L (35-129) H 07/26/21 04:35 Total Creatine Kinase 166 units/L (55-170) 07/22/21 19:18 CK-MB (CK-2) 3.2 ng/mL (0.0-4.0) 07/22/21 19:18 CK-MB (CK-2) Rel Index 1.9 (0-4) 07/22/21 19:18 Troponin T < 0.010 ng/mL (0.00-0.029) 07/22/21 19:18 Total Protein 8.3 g/dL (6.3-8.2) H D 07/26/21 04:35 Albumin 3.4 g/dL (3.9-5) L 07/26/21 04:35 Albumin/Globulin Ratio 0.7 % 07/26/21 04:35 TSH 2.290 mlU/mL (0.270-4.200) 07/24/21 04:41 Arterial Blood Ionized Calcium 5.6 mg/dL (4.6-5.3) H 07/22/21 21:09 Urine Color Straw (Yellow) 07/22/21 20:01 Urine Turbidity Clear (Clear) 07/22/21 20: Urine pH 6.0 (5.0-7.0) 07/22/21 20:01 Ur Specific [place] 1.033 (1.003-1.030) H 07/22/21 20:01 Urine Protein 100 mg/dl mg/dL (Negative) 07/22/21 20:01 Urine Glucose (UA) >=500 mg/dL (Negative) 07/22/21 20: Urine Ketones Neg mg/dL (Negative) 07/22/21 20: Urine Blood Mod (Negative) 07/22/21 20:01 Urine Nitrite Neg (Negative) 07/22/21 20:01 Urine Bilirubin Neg (Negative) 07/22/21 20: Urine Urobilinogen < 2.0 mg/dL (<2.0) 07/22/21 20:01 Ur Leukocyte Esterase Neg (Negative) 07/22/21 20:01 Urine WBC (Auto) 2.0 /HPF (0.0-6.0) 07/22/21 20:01 Urine RBC (Auto) 1.0 /HPF (0.0-6.0) 07/22/21 20:01 Urine Bacteria (Auto) 1+ /HPF (Negative) 07/22/21 20: Urine Mucus Few /HPF 07/22/21 20:01 Salicylates 0.6 mg/dL (2.8-20.0) L 07/22/21 19:18 Urine Opiates Screen Negative 07/22/21 20:01 Urine Methadone Screen Negative 07/22/21 20: Acetaminophen 5.0 ug/mL (10.0-30.0) L 07/22/21 19:18 Ur Barbiturates Screen Negative 07/22/21 20:01 Ur Phencyclidine Scrn Negative 07/22/21 20:01 Ur Amphetamines Screen Negative 07/22/21 20:01 U Benzodiazepines Scrn Negative 07/22/21 20:01 Urine Cocaine Screen Negative 07/22/21 20:01 U Marijuana (THC) Screen Negative 07/22/21 20:01 Drugs of Abuse Note Disclamer 07/22/21 20:01 Plasma/Serum Alcohol < 0.01 % (0-0.07) 07/22/21 19:18 Microbiology: Microbiology 07/22/21 21:29 Peripheral/Venous Blood Culture - Preliminary NO GROWTH AFTER 4 DAYS 07/22/21 21:50 Peripheral/Venous Blood Culture - Preliminary NO GROWTH AFTER 4 DAYS 07/22/21 23:05 Tracheal Aspirate Sputum Culture - Final Klebsiella Pneumoniae Corley/IV: Voiding Method Urinal Active Medications - Current Medications Current Medications: Generic Name Dose Route Start Last Admin Trade Name Freq PRN Reason Stop Dose Admin Acetaminophen 650 mg 07/22/21 21:57 Acetaminophen 650 Mg Rect Supp KS Q6H PRN Pain MILD(1-3)/Fever >100.5/BERNAL Dextrose 50 ml 07/25/21 11:00 Dextrose 50% In Water (25gm) 50 Ml Syringe IV Q30MIN PRN Hypoglycemia Protocol Famotidine 20 mg 07/26/21 10:00 07/26/21 09:00 Famotidine 20 Mg Tab PO 20 mg QDAY ROMERO Administration Heparin Sodium (Porcine) 5,000 unit 07/23/21 06:00 07/27/21 06:05 Heparin 5,000 Unit/1 Ml Vial SUB-Q 5,000 unit Q8HR ROMERO Administration Hydralazine HCl 10 mg 07/25/21 01:38 07/27/21 06:05 Hydralazine 20 Mg/1 Ml Inj IV 10 mg Q6H PRN Administration Hypertension Insulin Human Isoph/Insulin Regular 7 unit 07/26/21 17:00 07/26/21 17:15 Insulin Nph/Regular 70/30 Inj SUB-Q 7 unit BIDDIAB ROMERO Administration Insulin Human Lispro 0 unit 07/25/21 11:30 07/26/21 21:48 Insulin Lispro 100 Unit/Ml SUB-Q Not Given [facility] Protocol Levetiracetam 500 mg 07/26/21 22:00 07/26/21 21:43 Levetiracetam 500 Mg Tab PO 500 mg BID ROMERO Administration Lorazepam 2 mg 07/23/21 05:10 07/25/21 11:00 Lorazepam 2 Mg/Ml Vial IV 2 mg Q1H PRN Administration CIWA-Ar 8-15 Lorazepam 4 mg 07/23/21 05:10 07/24/21 07:32 Lorazepam 2 Mg/Ml Vial IV 4 mg Q1H PRN Administration CIWA-Ar 16-25 Lorazepam 4 mg 07/23/21 05:10 Lorazepam 2 Mg/Ml Vial IV Q15MIN PRN CIWA-Ar >25 Magnesium Hydroxide 30 ml 07/22/21 21:57 Magnesium Hydroxide (Mom) Oral Liqd Udc PO Q4H PRN Constipation Morphine Sulfate 2 mg 07/22/21 21:57 07/24/21 07:32 Morphine 2 Mg/1 Ml Inj IV 2 mg Q4H PRN Administration Pain, Moderate (4-6) Morphine Sulfate 4 mg 07/22/21 21:57 Morphine 4 Mg/1 Ml Inj IV Q4H PRN Pain , Severe (7-10) Senna/Docusate Sodium 1 tab 07/25/21 22:00 07/26/21 21:43 Sennosides/Docusate Sodium 8.6/50 Mg Tab PO 1 tab QHS ROMERO Administration Sodium Chloride 10 ml 07/22/21 22:00 07/26/21 21:43 Sodium Chloride 0.9% 10 Ml Flush Syringe IV 10 ml BID ROMERO Administration Sodium Chloride 10 ml 07/22/21 21:57 Sodium Chloride 0.9% 10 Ml Flush Syringe IV PRN PRN LINE FLUSH Nutrition/Malnutrition Assess - Dietary Evaluation Nutrition/Malnutrition Findings: Nutrition Notes Start: 07/23/21 09:29 Freq: Status: Active Protocol: Document 07/25/21 15:19 TREVOR (Rec: 07/25/21 15:23 [id number] Nutrition Notes Initial or Follow up Reassessment Current Diagnosis Acute Kidney Injury,Diabetes Other Pertinent Diagnosis Acute metabolic encephalopathy , Seizures, EtOH dependence Current Diet Consistent CHO Labs/Tests Na 152 Phos 5.1 POC Glu range since last assessment: 117-173 Pertinent Medications Reviewed Height 5 ft 8 in Weight 76.5 kg [place] Body Weight (kg) 70.00 BMI 25.6 Weight Status Appropriate Subjective/Other Information Pt extubated yesterday and diet advanced for breakfast this am. Pt remains on CIWA protocol. Burn Absent Trauma Absent #1 Nutrition Diagnosis Inadequate oral intake As Evidenced by Signs and Symptoms diet advanced this am; pt no longer on vent support Diagnosis Progress(for reassessment Improved documentation) Is patient on ventilator? No Is Patient Ambulatory and/or Out of Bed No REE-([facility]-confined to bed) 6.904 Calculation Used for Recommendations [facility] Additional Notes Protein: 1.2-2g/kg (92-153g) Fluid: 1 ml/kcal or per MD Nutrition Intervention Change Diet Order: Continue current diet order Goal #1 PO intake to meet at least 75% energy and pro needs Anticipated Discharge Needs: None identified at this time Follow-Up By: 07/27/21 Additional Comments F/U: intakes, need for ONS
--- NOTE | 2021-07-26 13:42 | Progress Note ---
Assessment and Plan Assessment and Plan 46-year-old male with no significant past medical history was brought into the emergency room by EMS today for evaluation of multiple seizures. Patient was said to have had convulsive events on the field which resolved spontaneously. He was also said to have had an episode of SVT which was terminated by 6 mg of adenosine. Accu-Chek on the field was said to be "high". - Patient Problems # DKA (diabetic ketoacidosis) Patient admitted into the intensive care unit and placed on IV fluid and insulin drip. We will monitor Accu-Cheks. A1C#9.6 # Seizures new onset had multiple seizure on admission -started on Keppra 500 mg bid -MRI brain with and without gd is unremarkable -EEG is unremarkable -Hx of alcoholism -UDS is unremarkable -We will place on seizure precautions. - Seizures may be alcohol related. -Patient has been started on Keppra IV 500 mg BID change to PO form -CT brain and CTA brain and neck are unremarkable # Acute encephalopathy resolved Possibly secondary to the seizures and DKA. Patient currently intubated. he is alert interactive off sedation no reported seizure # Acute respiratory failure Patient currently intubated off sedation We await further evaluation and recommendations from wharf hand. # Alcohol abuse Patient placed on alcohol withdrawal protocol. We will also be placed on multivitamins. # Renal insufficiency Patient placed on IV fluid. Will monitor BUN and creatinine. Consult placed to nephrology for evaluation. # SIRS (systemic inflammatory response syndrome) Patient has no obvious source of infection. He has been placed on IV fluid and empiric IV antibiotics. # Transaminitis Possibly secondary to history of alcohol abuse. We will monitor liver enzymes. Consult placed to gastroenterology done no further action. # DVT prophylaxis Patient placed on subcutaneous heparin. # Full code status Patient is full code. PLAN 1- As above 2- EEG is unremarkable 3- Seizure precaution no driving 4- DT precaution 5- Maintain Keppra 500 mg bid 6- Alcohol abstinence D/W pt. 7- Neurology follow up on D/C will sign off Subjective Date of service: 07/26/21 Principal diagnosis: Abnl LFTs Interval history: doing well today alert oriented to place not date denied Hx of seizure or DM he was on no medication at home according to pt. MRI today is unremarkable EEG is unremarkable Objective - Vital Sign Vital Signs - 12hr 07/26/21 07/26/21 07/26/21 02:00 02:30 03:00 Temperature Pulse Rate 101 H 101 H 97 H Pulse Rate [ From Monitor] Respiratory 18 17 19 Rate Blood Pressure 161/115 146/103 157/102 O2 Sat by Pulse 97 98 97 Oximetry 07/26/21 07/26/21 07/26/21 03:30 03:33 03:46 Temperature 98.7 F Pulse Rate 98 H 95 H Pulse Rate [ From Monitor] Respiratory 18 Rate Blood Pressure 173/98 173/98 O2 Sat by Pulse 97 Oximetry 07/26/21 07/26/21 07/26/21 04:00 04:30 05:00 Temperature Pulse Rate 106 H 101 H 104 H Pulse Rate [ 100 H From Monitor] Respiratory 20 19 18 Rate Blood Pressure 146/96 147/99 150/99 O2 Sat by Pulse 98 97 97 Oximetry 07/26/21 07/26/21 07/26/21 05:30 06:00 06:30 Temperature Pulse Rate 102 H 99 H 100 H Pulse Rate [ From Monitor] Respiratory 19 19 18 Rate Blood Pressure 151/97 160/97 148/96 O2 Sat by Pulse 98 97 Oximetry 07/26/21 07/26/21 07/26/21 07:00 07:23 07:28 Temperature 99.5 F Pulse Rate 105 H Pulse Rate [ From Monitor] Respiratory 19 Rate Blood Pressure 161/100 O2 Sat by Pulse 97 98 Oximetry 07/26/21 07/26/21 07/26/21 07:30 08:00 08:30 Temperature Pulse Rate 105 H 112 H 107 H Pulse Rate [ 98 H From Monitor] Respiratory 16 20 18 Rate Blood Pressure 157/104 171/103 131/84 O2 Sat by Pulse 98 97 98 Oximetry 07/26/21 07/26/21 07/26/21 09:00 09:30 10:00 Temperature Pulse Rate 112 H 103 H 104 H Pulse Rate [ From Monitor] Respiratory 19 17 17 Rate Blood Pressure 144/87 144/87 135/93 O2 Sat by Pulse 96 99 99 Oximetry 07/26/21 07/26/21 07/26/21 10:30 11:00 11:20 Temperature Pulse Rate 105 H 106 H 101 H Pulse Rate [ From Monitor] Respiratory 17 16 20 Rate Blood Pressure 135/93 146/95 146/95 O2 Sat by Pulse 99 100 97 Oximetry 07/26/21 07/26/21 07/26/21 11:30 11:31 11:40 Temperature 99.4 F Pulse Rate 102 H 109 H Pulse Rate [ From Monitor] Respiratory 17 13 Rate Blood Pressure 146/95 146/95 O2 Sat by Pulse 99 99 Oximetry 07/26/21 07/26/21 11:56 12:00 Temperature 98.9 F Pulse Rate 114 H Pulse Rate [ From Monitor] Respiratory 18 Rate Blood Pressure 136/97 O2 Sat by Pulse 96 96 Oximetry - General Apperance Constitutional: comfortable - EENT EENT: PERRL, mucous membranes moist - Respiratory Respiratory: chest non-tender, lungs clear, rhonchi - Cardiovascular Cardiovascular: regular rate, normal S1, normal S2 Extremities: no peripheral edema bilat, no clubbing, cyanosis - Gastrointestinal Gastrointestinal: normoactive bowel sounds - Integumentary Integumentary: normal - Neurologic Cranial nerve examination: PERRL, EOMI, intact Speech examination: intact Detailed motor examination: grossly full strength in - Laboratory Findings CBC and BMP: 07/25/21 04:56 07/26/21 04:35 Abnormal Lab Findings: Abnormal Labs 07/22/21 07/22/21 07/22/21 19:18 19:18 19:18 WBC 17.7 H RBC Hgb Hct MCV 115 H MCH 34 H MCHC 30 L Baso # (Auto) 0.2 H Seg Neutrophils % 78.4 H Seg Neuts % (Manual) 75.0 H Seg Neutrophils # Man 13.3 H PT 17.4 H INR 1.29 H ABG pH POC ABG pO2 ABG HCO3 ABG Base Excess ABG Hemoglobin ABG Oxyhemoglobin ABG Potassium ABG Chloride VBG pH Carboxyhemoglobin Sodium Potassium 5.6 H Chloride 84.9 L Carbon Dioxide 6 L* Creatinine 1.9 H Glucose 941 H* POC Glucose Hemoglobin A1c Lactic Acid Calcium 11.6 H Phosphorus Magnesium Ferritin AST 270 H ALT 107 H Alkaline Phosphatase 334 H Total Protein 10.0 H Albumin Arterial Blood Ionized Calcium Ur Specific [place] Salicylates Acetaminophen 07/22/21 07/22/21 07/22/21 19:18 19:18 19:18 WBC RBC Hgb Hct MCV MCH MCHC Baso # (Auto) Seg Neutrophils % Seg Neuts % (Manual) Seg Neutrophils # Man PT INR ABG pH POC ABG pO2 ABG HCO3 ABG Base Excess ABG Hemoglobin ABG Oxyhemoglobin ABG Potassium ABG Chloride VBG pH 7.030 L* Carboxyhemoglobin Sodium Potassium Chloride Carbon Dioxide Creatinine Glucose POC Glucose Hemoglobin A1c Lactic Acid Calcium Phosphorus Magnesium Ferritin AST ALT Alkaline Phosphatase Total Protein Albumin Arterial Blood Ionized Calcium Ur Specific [place] Salicylates 0.6 L Acetaminophen 5.0 L 07/22/21 07/22/21 07/22/21 20:01 20:29 20:58 WBC RBC Hgb Hct MCV MCH MCHC Baso # (Auto) Seg Neutrophils % Seg Neuts % (Manual) Seg Neutrophils # Man PT INR ABG pH POC ABG pO2 ABG HCO3 ABG Base Excess ABG Hemoglobin ABG Oxyhemoglobin ABG Potassium ABG Chloride VBG pH Carboxyhemoglobin Sodium Potassium Chloride Carbon Dioxide Creatinine Glucose POC Glucose > 600 H Hemoglobin A1c Lactic Acid Calcium Phosphorus 5.20 H Magnesium 3.00 H Ferritin AST ALT Alkaline Phosphatase Total Protein Albumin Arterial Blood Ionized Calcium Ur Specific [place] 1.033 H Salicylates Acetaminophen 07/22/21 07/22/21 07/22/21 20:58 21:09 21:29 WBC RBC Hgb Hct MCV MCH MCHC Baso # (Auto) Seg Neutrophils % Seg Neuts % (Manual) Seg Neutrophils # Man PT INR ABG pH 7.242 L POC ABG pO2 189.2 H ABG HCO3 ABG Base Excess ABG Hemoglobin ABG Oxyhemoglobin 98.7 H ABG Potassium 4.6 H ABG Chloride 97.0 L VBG pH Carboxyhemoglobin 0.3 L Sodium 135 L Potassium Chloride 91.5 L Carbon Dioxide 15 L D Creatinine 1.6 H Glucose 810 H* POC Glucose Hemoglobin A1c Lactic Acid 10.30 H* Calcium 11.0 H Phosphorus Magnesium Ferritin AST ALT Alkaline Phosphatase Total Protein Albumin Arterial Blood Ionized Calcium 5.6 H Ur Specific [place] Salicylates Acetaminophen 07/22/21 07/22/21 07/22/21 22:46 22:46 22:46 WBC RBC Hgb Hct MCV MCH MCHC Baso # (Auto) Seg Neutrophils % Seg Neuts % (Manual) Seg Neutrophils # Man PT INR ABG pH POC ABG pO2 ABG HCO3 ABG Base Excess ABG Hemoglobin ABG Oxyhemoglobin ABG Potassium ABG Chloride VBG pH Carboxyhemoglobin Sodium Potassium Chloride 96.7 L Carbon Dioxide 17 L Creatinine 1.5 H Glucose 659 H* POC Glucose Hemoglobin A1c 9.8 H Lactic Acid Calcium 10.6 H Phosphorus Magnesium 2.80 H Ferritin AST ALT Alkaline Phosphatase Total Protein Albumin Arterial Blood Ionized Calcium Ur Specific [place] Salicylates Acetaminophen 07/23/21 07/23/21 07/23/21 00:27 01:36 02:26 WBC RBC Hgb Hct MCV MCH MCHC Baso # (Auto) Seg Neutrophils % Seg Neuts % (Manual) Seg Neutrophils # Man PT INR ABG pH POC ABG pO2 ABG HCO3 ABG Base Excess ABG Hemoglobin ABG Oxyhemoglobin ABG Potassium ABG Chloride VBG pH Carboxyhemoglobin Sodium 148 H D Potassium 3.5 L Chloride Carbon Dioxide 21 L Creatinine 1.5 H Glucose 409 H POC Glucose 264 H 220 H Hemoglobin A1c Lactic Acid Calcium 10.8 H Phosphorus Magnesium Ferritin AST ALT Alkaline Phosphatase Total Protein Albumin Arterial Blood Ionized Calcium Ur Specific [place] Salicylates Acetaminophen 07/23/21 07/23/21 07/23/21 03:29 04:29 04:29 WBC RBC Hgb Hct MCV MCH MCHC Baso # (Auto) Seg Neutrophils % Seg Neuts % (Manual) Seg Neutrophils # Man PT INR ABG pH POC ABG pO2 ABG HCO3 ABG Base Excess ABG Hemoglobin ABG Oxyhemoglobin ABG Potassium ABG Chloride VBG pH Carboxyhemoglobin Sodium 150 H Potassium 2.7 L* D Chloride 111.7 H Carbon Dioxide Creatinine Glucose 181 H POC Glucose 189 H 155 H Hemoglobin A1c Lactic Acid Calcium Phosphorus Magnesium Ferritin AST ALT Alkaline Phosphatase Total Protein Albumin Arterial Blood Ionized Calcium Ur Specific [place] Salicylates Acetaminophen 07/23/21 07/23/21 07/23/21 05:27 06:33 07:48 WBC RBC Hgb Hct MCV MCH MCHC Baso # (Auto) Seg Neutrophils % Seg Neuts % (Manual) Seg Neutrophils # Man PT INR ABG pH POC ABG pO2 ABG HCO3 ABG Base Excess ABG Hemoglobin ABG Oxyhemoglobin ABG Potassium ABG Chloride VBG pH Carboxyhemoglobin Sodium Potassium Chloride Carbon Dioxide Creatinine Glucose POC Glucose 175 H 177 H 171 H Hemoglobin A1c Lactic Acid Calcium Phosphorus Magnesium Ferritin AST ALT Alkaline Phosphatase Total Protein Albumin Arterial Blood Ionized Calcium Ur Specific [place] Salicylates Acetaminophen 07/23/21 07/23/21 07/23/21 08:32 09:25 10:27 WBC RBC Hgb Hct MCV MCH MCHC Baso # (Auto) Seg Neutrophils % Seg Neuts % (Manual) Seg Neutrophils # Man PT INR ABG pH POC ABG pO2 ABG HCO3 ABG Base Excess ABG Hemoglobin ABG Oxyhemoglobin ABG Potassium ABG Chloride VBG pH Carboxyhemoglobin Sodium Potassium Chloride Carbon Dioxide Creatinine Glucose POC Glucose 216 H 142 H 136 H Hemoglobin A1c Lactic Acid Calcium Phosphorus Magnesium Ferritin AST ALT Alkaline Phosphatase Total Protein Albumin Arterial Blood Ionized Calcium Ur Specific [place] Salicylates Acetaminophen 07/23/21 07/23/21 07/23/21 10:32 10:32 11:32 WBC RBC Hgb Hct MCV MCH MCHC Baso # (Auto) Seg Neutrophils % Seg Neuts % (Manual) Seg Neutrophils # Man PT INR ABG pH POC ABG pO2 ABG HCO3 ABG Base Excess ABG Hemoglobin ABG Oxyhemoglobin ABG Potassium ABG Chloride VBG pH Carboxyhemoglobin Sodium 147 H Potassium 3.0 L Chloride 110.0 H Carbon Dioxide 20 L Creatinine Glucose 145 H POC Glucose 124 H Hemoglobin A1c Lactic Acid 4.10 H* Calcium Phosphorus 0.90 L* D Magnesium Ferritin AST ALT Alkaline Phosphatase Total Protein Albumin Arterial Blood Ionized Calcium Ur Specific [place] Salicylates Acetaminophen 07/23/21 07/23/21 07/23/21 12:36 13:33 14:33 WBC RBC Hgb Hct MCV MCH MCHC Baso # (Auto) Seg Neutrophils % Seg Neuts % (Manual) Seg Neutrophils # Man PT INR ABG pH POC ABG pO2 ABG HCO3 ABG Base Excess ABG Hemoglobin ABG Oxyhemoglobin ABG Potassium ABG Chloride VBG pH Carboxyhemoglobin Sodium Potassium Chloride Carbon Dioxide Creatinine Glucose POC Glucose 125 H 111 H 121 H Hemoglobin A1c Lactic Acid Calcium Phosphorus Magnesium Ferritin AST ALT Alkaline Phosphatase Total Protein Albumin Arterial Blood Ionized Calcium Ur Specific [place] Salicylates Acetaminophen 07/23/21 07/23/21 07/23/21 15:36 15:47 15:47 WBC RBC Hgb Hct MCV MCH MCHC Baso # (Auto) Seg Neutrophils % Seg Neuts % (Manual) Seg Neutrophils # Man PT INR ABG pH POC ABG pO2 ABG HCO3 ABG Base Excess ABG Hemoglobin ABG Oxyhemoglobin ABG Potassium ABG Chloride VBG pH Carboxyhemoglobin Sodium 148 H Potassium 3.0 L Chloride 112.8 H Carbon Dioxide 19 L Creatinine 1.4 H Glucose 135 H POC Glucose 124 H Hemoglobin A1c Lactic Acid 4.20 H* Calcium Phosphorus Magnesium Ferritin AST ALT Alkaline Phosphatase Total Protein Albumin Arterial Blood Ionized Calcium Ur Specific [place] Salicylates Acetaminophen 07/23/21 07/23/21 07/23/21 16:46 17:45 18:28 WBC RBC Hgb Hct MCV MCH MCHC Baso # (Auto) Seg Neutrophils % Seg Neuts % (Manual) Seg Neutrophils # Man PT INR ABG pH POC ABG pO2 ABG HCO3 ABG Base Excess ABG Hemoglobin ABG Oxyhemoglobin ABG Potassium ABG Chloride VBG pH Carboxyhemoglobin Sodium Potassium Chloride Carbon Dioxide Creatinine Glucose POC Glucose 126 H 139 H 144 H Hemoglobin A1c Lactic Acid Calcium Phosphorus Magnesium Ferritin AST ALT Alkaline Phosphatase Total Protein Albumin Arterial Blood Ionized Calcium Ur Specific [place] Salicylates Acetaminophen 07/23/21 07/23/21 07/23/21 20:27 21:36 22:22 WBC RBC Hgb Hct MCV MCH MCHC Baso # (Auto) Seg Neutrophils % Seg Neuts % (Manual) Seg Neutrophils # Man PT INR ABG pH POC ABG pO2 ABG HCO3 ABG Base Excess ABG Hemoglobin ABG Oxyhemoglobin ABG Potassium ABG Chloride VBG pH Carboxyhemoglobin Sodium Potassium Chloride 115.2 H Carbon Dioxide 18 L Creatinine 1.5 H Glucose 155 H POC Glucose 154 H 133 H Hemoglobin A1c Lactic Acid Calcium Phosphorus Magnesium Ferritin AST ALT Alkaline Phosphatase Total Protein Albumin Arterial Blood Ionized Calcium Ur Specific [place] Salicylates Acetaminophen 07/23/21 07/23/21 07/24/21 22:37 23:46 00:29 WBC RBC Hgb Hct MCV MCH MCHC Baso # (Auto) Seg Neutrophils % Seg Neuts % (Manual) Seg Neutrophils # Man PT INR ABG pH POC ABG pO2 ABG HCO3 ABG Base Excess ABG Hemoglobin ABG Oxyhemoglobin ABG Potassium ABG Chloride VBG pH Carboxyhemoglobin Sodium Potassium Chloride Carbon Dioxide Creatinine Glucose POC Glucose 130 H 111 H 155 H Hemoglobin A1c Lactic Acid Calcium Phosphorus Magnesium Ferritin AST ALT Alkaline Phosphatase Total Protein Albumin Arterial Blood Ionized Calcium Ur Specific [place] Salicylates Acetaminophen 07/24/21 07/24/21 07/24/21 02:01 03:11 03:29 WBC RBC Hgb Hct MCV MCH MCHC Baso # (Auto) Seg Neutrophils % Seg Neuts % (Manual) Seg Neutrophils # Man PT INR ABG pH 7.534 H POC ABG pO2 ABG HCO3 18.5 L ABG Base Excess -2.6 L ABG Hemoglobin 11.3 L ABG Oxyhemoglobin ABG Potassium ABG Chloride VBG pH Carboxyhemoglobin Sodium Potassium Chloride Carbon Dioxide Creatinine Glucose POC Glucose 140 H 159 H Hemoglobin A1c Lactic Acid Calcium Phosphorus Magnesium Ferritin AST ALT Alkaline Phosphatase Total Protein Albumin Arterial Blood Ionized Calcium Ur Specific [place] Salicylates Acetaminophen 07/24/21 07/24/21 07/24/21 04:06 04:41 04:41 WBC RBC 3.19 L Hgb 11.0 L Hct 33.5 L D MCV 105 H MCH 35 H MCHC Baso # (Auto) Seg Neutrophils % Seg Neuts % (Manual) Seg Neutrophils # Man PT INR ABG pH POC ABG pO2 ABG HCO3 ABG Base Excess ABG Hemoglobin ABG Oxyhemoglobin ABG Potassium ABG Chloride VBG pH Carboxyhemoglobin Sodium Potassium Chloride 114.8 H Carbon Dioxide 18 L Creatinine 1.4 H Glucose 178 H POC Glucose 167 H Hemoglobin A1c Lactic Acid Calcium 8.1 L Phosphorus Magnesium Ferritin AST 62 H ALT Alkaline Phosphatase Total Protein Albumin 2.8 L Arterial Blood Ionized Calcium Ur Specific [place] Salicylates Acetaminophen 07/24/21 07/24/21 07/24/21 04:41 05:13 06:01 WBC RBC Hgb Hct MCV MCH MCHC Baso # (Auto) Seg Neutrophils % Seg Neuts % (Manual) Seg Neutrophils # Man PT INR ABG pH POC ABG pO2 ABG HCO3 ABG Base Excess ABG Hemoglobin ABG Oxyhemoglobin ABG Potassium ABG Chloride VBG pH Carboxyhemoglobin Sodium Potassium Chloride Carbon Dioxide Creatinine Glucose POC Glucose 162 H 173 H Hemoglobin A1c Lactic Acid Calcium Phosphorus Magnesium Ferritin 657.6 H AST ALT Alkaline Phosphatase Total Protein Albumin Arterial Blood Ionized Calcium Ur Specific [place] Salicylates Acetaminophen 07/24/21 07/24/21 07/24/21 07:15 08:26 09:47 WBC RBC Hgb Hct MCV MCH MCHC Baso # (Auto) Seg Neutrophils % Seg Neuts % (Manual) Seg Neutrophils # Man PT INR ABG pH POC ABG pO2 ABG HCO3 ABG Base Excess ABG Hemoglobin ABG Oxyhemoglobin ABG Potassium ABG Chloride VBG pH Carboxyhemoglobin Sodium Potassium Chloride Carbon Dioxide Creatinine Glucose POC Glucose 151 H 150 H 155 H Hemoglobin A1c Lactic Acid Calcium Phosphorus Magnesium Ferritin AST ALT Alkaline Phosphatase Total Protein Albumin Arterial Blood Ionized Calcium Ur Specific [place] Salicylates Acetaminophen 07/24/21 07/24/21 07/24/21 10:50 11:48 17:22 WBC RBC Hgb Hct MCV MCH MCHC Baso # (Auto) Seg Neutrophils % Seg Neuts % (Manual) Seg Neutrophils # Man PT INR ABG pH POC ABG pO2 ABG HCO3 ABG Base Excess ABG Hemoglobin ABG Oxyhemoglobin ABG Potassium ABG Chloride VBG pH Carboxyhemoglobin Sodium Potassium Chloride Carbon Dioxide Creatinine Glucose POC Glucose 150 H 145 H 129 H Hemoglobin A1c Lactic Acid Calcium Phosphorus Magnesium Ferritin AST ALT Alkaline Phosphatase Total Protein Albumin Arterial Blood Ionized Calcium Ur Specific [place] Salicylates Acetaminophen 07/25/21 07/25/21 07/25/21 00:31 04:56 04:56 WBC RBC 3.43 L Hgb Hct MCV 107 H MCH 35 H MCHC Baso # (Auto) Seg Neutrophils % Seg Neuts % (Manual) Seg Neutrophils # Man PT INR ABG pH POC ABG pO2 ABG HCO3 ABG Base Excess ABG Hemoglobin ABG Oxyhemoglobin ABG Potassium ABG Chloride VBG pH Carboxyhemoglobin Sodium 152 H Potassium Chloride 113.9 H Carbon Dioxide 21 L Creatinine Glucose 122 H POC Glucose 117 H Hemoglobin A1c Lactic Acid Calcium Phosphorus 5.10 H D Magnesium Ferritin AST ALT Alkaline Phosphatase Total Protein Albumin Arterial Blood Ionized Calcium Ur Specific [place] Salicylates Acetaminophen 07/25/21 07/25/21 07/25/21 05:24 11:36 17:35 WBC RBC Hgb Hct MCV MCH MCHC Baso # (Auto) Seg Neutrophils % Seg Neuts % (Manual) Seg Neutrophils # Man PT INR ABG pH POC ABG pO2 ABG HCO3 ABG Base Excess ABG Hemoglobin ABG Oxyhemoglobin ABG Potassium ABG Chloride VBG pH Carboxyhemoglobin Sodium Potassium Chloride Carbon Dioxide Creatinine Glucose POC Glucose 117 H 134 H 146 H Hemoglobin A1c Lactic Acid Calcium Phosphorus Magnesium Ferritin AST ALT Alkaline Phosphatase Total Protein Albumin Arterial Blood Ionized Calcium Ur Specific [place] Salicylates Acetaminophen 07/25/21 07/26/21 07/26/21 21:16 04:35 07:13 WBC RBC Hgb Hct MCV MCH MCHC Baso # (Auto) Seg Neutrophils % Seg Neuts % (Manual) Seg Neutrophils # Man PT INR ABG pH POC ABG pO2 ABG HCO3 ABG Base Excess ABG Hemoglobin ABG Oxyhemoglobin ABG Potassium ABG Chloride VBG pH Carboxyhemoglobin Sodium Potassium Chloride Carbon Dioxide Creatinine Glucose 145 H POC Glucose 116 H 139 H Hemoglobin A1c Lactic Acid Calcium Phosphorus Magnesium Ferritin AST 64 H ALT Alkaline Phosphatase 136 H Total Protein 8.3 H D Albumin 3.4 L Arterial Blood Ionized Calcium Ur Specific [place] Salicylates Acetaminophen 07/26/21 11:06 WBC RBC Hgb Hct MCV MCH MCHC Baso # (Auto) Seg Neutrophils % Seg Neuts % (Manual) Seg Neutrophils # Man PT INR ABG pH POC ABG pO2 ABG HCO3 ABG Base Excess ABG Hemoglobin ABG Oxyhemoglobin ABG Potassium ABG Chloride VBG pH Carboxyhemoglobin Sodium Potassium Chloride Carbon Dioxide Creatinine Glucose POC Glucose 157 H Hemoglobin A1c Lactic Acid Calcium Phosphorus Magnesium Ferritin AST ALT Alkaline Phosphatase Total Protein Albumin Arterial Blood Ionized Calcium Ur Specific [place] Salicylates Acetaminophen
--- NOTE | 2021-07-26 19:32 | Progress Note ---
Assessment and Plan 46-year-old male with no significant past medical history was brought into the emergency room by EMS today for evaluation of multiple seizures. Patient was said to have had convulsive events on the field which resolved spontaneously. He was also said to have had an episode of SVT which was terminated by 6 mg of adenosine. Accu-Chek on the field was said to be "high". Most of the history was provided by the ER staff and parents by the bedside as patient was already intubated. Mother indicates that patient drinks alcohol almost on a daily basis and also uses marijuana. Upon arrival in the emergency room he was said to be tachypneic tachycardic and hypertensive. He had copious secretions in his oral cavity and was subsequently intubated in the emergency room. Work-up in the emergency room today, significant findings were that of leukocytosis of 17.7 potassium of 5.6, CO2 of 6, blood glucose 941, AST 270 ALT 107 alkaline phos 334. BUN of 19 creatinine 1.9, anion gap of 52. Chest x-ray, CT scan of the head, CTA head and neck were essentially negative. Patient extubated. Patient transfered to medical floor. Patient awake. resting on room air. O2 saturation 95%. Patient afebrile. No leukocytosis. Blood pressure 160/106, pulse 95 , respirations 18 Chest xray done 07/24/21 reported New patchy opacity at left lung base concerning for pneumonia versus atelectasis. Bilateral mild increased interstitial markings could represent low lung volumes versus mild interstitial edema. Patient is on S/C Heparin and famotidine. - Patient Problems (1) Acute respiratory failure Status: Acute Plan to address problem: Patient intubated and extubated. Presently resting on room air. (2) Acute encephalopathy Status: Acute Plan to address problem: Management as per primary care and neurology. (3) DKA (diabetic ketoacidosis) Status: Acute Plan to address problem: Management as per primary care. (4) Seizures Status: Acute Plan to address problem: Management as per primary care and neurology. Subjective Date of service: 07/26/21 Principal diagnosis: Abnl LFTs Interval history: 46-year-old male with no significant past medical history was brought into the emergency room by EMS today for evaluation of multiple seizures. Patient was said to have had convulsive events on the field which resolved spontaneously. He was also said to have had an episode of SVT which was terminated by 6 mg of adenosine. Accu-Chek on the field was said to be "high". Most of the history was provided by the ER staff and parents by the bedside as patient was already intubated. Mother indicates that patient drinks alcohol almost on a daily basis and also uses marijuana. Upon arrival in the emergency room he was said to be tachypneic tachycardic and hypertensive. He had copious secretions in his oral cavity and was subsequently intubated in the emergency room. Work-up in the emergency room today, significant findings were that of leukocytosis of 17.7 potassium of 5.6, CO2 of 6, blood glucose 941, AST 270 ALT 107 alkaline phos 334. BUN of 19 creatinine 1.9, anion gap of 52. Chest x-ray, CT scan of the head, CTA head and neck were essentially negative. Patient extubated. Patient transfered to medical floor. Patient awake. resting on room air. O2 saturation 95%. Patient afebrile. No leukocytosis. Blood pressure 160/106, pulse 95 , respirations 18 Chest xray done 07/24/21 reported New patchy opacity at left lung base concerning for pneumonia versus atelectasis. Bilateral mild increased interstitial markings could represent low lung volumes versus mild interstitial edema. Patient is on S/C Heparin and famotidine. Objective Vital Signs - 12hr 07/26/21 07/26/21 07/26/21 08:00 08:30 09:00 Temperature Pulse Rate 112 H 107 H 112 H Pulse Rate [ 98 H From Monitor] Respiratory 20 18 19 Rate Blood Pressure 171/103 131/84 144/87 O2 Sat by Pulse 97 98 96 Oximetry 07/26/21 07/26/21 07/26/21 09:30 10:00 10:30 Temperature Pulse Rate 103 H 104 H 105 H Pulse Rate [ From Monitor] Respiratory 17 17 17 Rate Blood Pressure 144/87 135/93 135/93 O2 Sat by Pulse 99 99 99 Oximetry 07/26/21 07/26/21 07/26/21 11:00 11:20 11:30 Temperature Pulse Rate 106 H 101 H 102 H Pulse Rate [ From Monitor] Respiratory 16 20 17 Rate Blood Pressure 146/95 146/95 146/95 O2 Sat by Pulse 100 97 99 Oximetry 07/26/21 07/26/2121 11:31 11:40 11:56 Temperature 99.4 F 98.9 F Pulse Rate 109 H 114 H Pulse Rate [ From Monitor] Respiratory 13 18 Rate Blood Pressure 146/95 136/97 O2 Sat by Pulse 99 96 Oximetry 07/26/21 07/26/21 07/26/21 12:00 16:00 16:48 Temperature 98.1 F Pulse Rate 95 H Pulse Rate [ From Monitor] Respiratory 18 Rate Blood Pressure 160/106 O2 Sat by Pulse 96 96 96 Oximetry 07/26/21 18:07 Temperature Pulse Rate Pulse Rate [ From Monitor] Respiratory Rate Blood Pressure 160/106 O2 Sat by Pulse Oximetry Constitutional: no acute distress, alert Eyes: non-icteric ENT: oropharynx moist Neck: supple, no lymphadenopathy Effort: normal Ascultation: Bilateral: diminished breath sounds Cardiovascular: regular rate and rhythm, other (S1,S2) Gastrointestinal: normoactive bowel sounds Integumentary: normal Extremities: no cyanosis, no edema, pink and warm, pulses normal Neurologic: normal mental status, non-focal exam, pupils equal and round, CN II- XII normal, other (obeys simple commands) Psychiatric: mood appropriate CBC and BMP: 07/27/21 07:00 07/27/21 07:00 ABG, PT/INR, D-dimer: ABG ABG pH 7.534 pH Units (7.350-7.450) H 07/24/21 03:29 POC ABG pCO2 44.7 mmHg (32.0-48.0) 07/22/21 21:09 ABG pCO2 22.4 mm Hg 07/24/21 03:29 POC ABG pO2 189.2 mmHg (83-108) H 07/22/21 21:09 ABG pO2 80.2 mm Hg (80.0-90.0) 07/24/21 03:29 POC ABG HCO3 18.8 07/22/21 21:09 ABG O2 Saturation 95.8 % (95.0-99.0) 07/24/21 03:29 PT/INR, D-dimer PT 17.4 Sec. (12.2-14.9) H 07/22/21 19:18 INR 1.29 (0.87-1.13) H 07/22/21 19:18 Abnormal lab findings: Abnormal Labs 07/22/21 07/22/21 07/22/21 19:18 19:18 19:18 WBC 17.7 H RBC Hgb Hct MCV 115 H MCH 34 H MCHC 30 L Baso # (Auto) 0.2 H Seg Neutrophils % 78.4 H Seg Neuts % (Manual) 75.0 H Seg Neutrophils # Man 13.3 H PT 17.4 H INR 1.29 H ABG pH POC ABG pO2 ABG HCO3 ABG Base Excess ABG Hemoglobin ABG Oxyhemoglobin ABG Potassium ABG Chloride VBG pH Carboxyhemoglobin Sodium Potassium 5.6 H Chloride 84.9 L Carbon Dioxide 6 L* Creatinine 1.9 H Glucose 941 H* POC Glucose Hemoglobin A1c Lactic Acid Calcium 11.6 H Phosphorus Magnesium Ferritin AST 270 H ALT 107 H Alkaline Phosphatase 334 H Total Protein 10.0 H Albumin Arterial Blood Ionized Calcium Ur Specific [place] Salicylates Acetaminophen 07/22/21 07/22/21 07/22/21 19:18 19:18 19:18 WBC RBC Hgb Hct MCV MCH MCHC Baso # (Auto) Seg Neutrophils % Seg Neuts % (Manual) Seg Neutrophils # Man PT INR ABG pH POC ABG pO2 ABG HCO3 ABG Base Excess ABG Hemoglobin ABG Oxyhemoglobin ABG Potassium ABG Chloride VBG pH 7.030 L* Carboxyhemoglobin Sodium Potassium Chloride Carbon Dioxide Creatinine Glucose POC Glucose Hemoglobin A1c Lactic Acid Calcium Phosphorus Magnesium Ferritin AST ALT Alkaline Phosphatase Total Protein Albumin Arterial Blood Ionized Calcium Ur Specific [place] Salicylates 0.6 L Acetaminophen 5.0 L 07/22/21 07/22/21 07/22/21 20:01 20:29 20:58 WBC RBC Hgb Hct MCV MCH MCHC Baso # (Auto) Seg Neutrophils % Seg Neuts % (Manual) Seg Neutrophils # Man PT INR ABG pH POC ABG pO2 ABG HCO3 ABG Base Excess ABG Hemoglobin ABG Oxyhemoglobin ABG Potassium ABG Chloride VBG pH Carboxyhemoglobin Sodium Potassium Chloride Carbon Dioxide Creatinine Glucose POC Glucose > 600 H Hemoglobin A1c Lactic Acid Calcium Phosphorus 5.20 H Magnesium 3.00 H Ferritin AST ALT Alkaline Phosphatase Total Protein Albumin Arterial Blood Ionized Calcium Ur Specific [place] 1.033 H Salicylates Acetaminophen 07/22/21 07/22/21 07/22/21 20:58 21:09 21:29 WBC RBC Hgb Hct MCV MCH MCHC Baso # (Auto) Seg Neutrophils % Seg Neuts % (Manual) Seg Neutrophils # Man PT INR ABG pH 7.242 L POC ABG pO2 189.2 H ABG HCO3 ABG Base Excess ABG Hemoglobin ABG Oxyhemoglobin 98.7 H ABG Potassium 4.6 H ABG Chloride 97.0 L VBG pH Carboxyhemoglobin 0.3 L Sodium 135 L Potassium Chloride 91.5 L Carbon Dioxide 15 L D Creatinine 1.6 H Glucose 810 H* POC Glucose Hemoglobin A1c Lactic Acid 10.30 H* Calcium 11.0 H Phosphorus Magnesium Ferritin AST ALT Alkaline Phosphatase Total Protein Albumin Arterial Blood Ionized Calcium 5.6 H Ur Specific [place] Salicylates Acetaminophen 07/22/21 07/22/21 07/22/21 22:46 22:46 22:46 WBC RBC Hgb Hct MCV MCH MCHC Baso # (Auto) Seg Neutrophils % Seg Neuts % (Manual) Seg Neutrophils # Man PT INR ABG pH POC ABG pO2 ABG HCO3 ABG Base Excess ABG Hemoglobin ABG Oxyhemoglobin ABG Potassium ABG Chloride VBG pH Carboxyhemoglobin Sodium Potassium Chloride 96.7 L Carbon Dioxide 17 L Creatinine 1.5 H Glucose 659 H* POC Glucose Hemoglobin A1c 9.8 H Lactic Acid Calcium 10.6 H Phosphorus Magnesium 2.80 H Ferritin AST ALT Alkaline Phosphatase Total Protein Albumin Arterial Blood Ionized Calcium Ur Specific [place] Salicylates Acetaminophen 07/23/21 07/23/21 07/23/21 00:27 01:36 02:26 WBC RBC Hgb Hct MCV MCH MCHC Baso # (Auto) Seg Neutrophils % Seg Neuts % (Manual) Seg Neutrophils # Man PT INR ABG pH POC ABG pO2 ABG HCO3 ABG Base Excess ABG Hemoglobin ABG Oxyhemoglobin ABG Potassium ABG Chloride VBG pH Carboxyhemoglobin Sodium 148 H D Potassium 3.5 L Chloride Carbon Dioxide 21 L Creatinine 1.5 H Glucose 409 H POC Glucose 264 H 220 H Hemoglobin A1c Lactic Acid Calcium 10.8 H Phosphorus Magnesium Ferritin AST ALT Alkaline Phosphatase Total Protein Albumin Arterial Blood Ionized Calcium Ur Specific [place] Salicylates Acetaminophen 07/23/21 07/23/21 07/23/21 03:29 04:29 04:29 WBC RBC Hgb Hct MCV MCH MCHC Baso # (Auto) Seg Neutrophils % Seg Neuts % (Manual) Seg Neutrophils # Man PT INR ABG pH POC ABG pO2 ABG HCO3 ABG Base Excess ABG Hemoglobin ABG Oxyhemoglobin ABG Potassium ABG Chloride VBG pH Carboxyhemoglobin Sodium 150 H Potassium 2.7 L* D Chloride 111.7 H Carbon Dioxide Creatinine Glucose 181 H POC Glucose 189 H 155 H Hemoglobin A1c Lactic Acid Calcium Phosphorus Magnesium Ferritin AST ALT Alkaline Phosphatase Total Protein Albumin Arterial Blood Ionized Calcium Ur Specific [place] Salicylates Acetaminophen 07/23/21 07/23/21 07/23/21 05:27 06:33 07:48 WBC RBC Hgb Hct MCV MCH MCHC Baso # (Auto) Seg Neutrophils % Seg Neuts % (Manual) Seg Neutrophils # Man PT INR ABG pH POC ABG pO2 ABG HCO3 ABG Base Excess ABG Hemoglobin ABG Oxyhemoglobin ABG Potassium ABG Chloride VBG pH Carboxyhemoglobin Sodium Potassium Chloride Carbon Dioxide Creatinine Glucose POC Glucose 175 H 177 H 171 H Hemoglobin A1c Lactic Acid Calcium Phosphorus Magnesium Ferritin AST ALT Alkaline Phosphatase Total Protein Albumin Arterial Blood Ionized Calcium Ur Specific [place] Salicylates Acetaminophen 07/23/21 07/23/21 07/23/21 08:32 09:25 10:27 WBC RBC Hgb Hct MCV MCH MCHC Baso # (Auto) Seg Neutrophils % Seg Neuts % (Manual) Seg Neutrophils # Man PT INR ABG pH POC ABG pO2 ABG HCO3 ABG Base Excess ABG Hemoglobin ABG Oxyhemoglobin ABG Potassium ABG Chloride VBG pH Carboxyhemoglobin Sodium Potassium Chloride Carbon Dioxide Creatinine Glucose POC Glucose 216 H 142 H 136 H Hemoglobin A1c Lactic Acid Calcium Phosphorus Magnesium Ferritin AST ALT Alkaline Phosphatase Total Protein Albumin Arterial Blood Ionized Calcium Ur Specific [place] Salicylates Acetaminophen 07/23/21 07/23/21 07/23/21 10:32 10:32 11:32 WBC RBC Hgb Hct MCV MCH MCHC Baso # (Auto) Seg Neutrophils % Seg Neuts % (Manual) Seg Neutrophils # Man PT INR ABG pH POC ABG pO2 ABG HCO3 ABG Base Excess ABG Hemoglobin ABG Oxyhemoglobin ABG Potassium ABG Chloride VBG pH Carboxyhemoglobin Sodium 147 H Potassium 3.0 L Chloride 110.0 H Carbon Dioxide 20 L Creatinine Glucose 145 H POC Glucose 124 H Hemoglobin A1c Lactic Acid 4.10 H* Calcium Phosphorus 0.90 L* D Magnesium Ferritin AST ALT Alkaline Phosphatase Total Protein Albumin Arterial Blood Ionized Calcium Ur Specific [place] Salicylates Acetaminophen 07/23/21 07/23/21 07/23/21 12:36 13:33 14:33 WBC RBC Hgb Hct MCV MCH MCHC Baso # (Auto) Seg Neutrophils % Seg Neuts % (Manual) Seg Neutrophils # Man PT INR ABG pH POC ABG pO2 ABG HCO3 ABG Base Excess ABG Hemoglobin ABG Oxyhemoglobin ABG Potassium ABG Chloride VBG pH Carboxyhemoglobin Sodium Potassium Chloride Carbon Dioxide Creatinine Glucose POC Glucose 125 H 111 H 121 H Hemoglobin A1c Lactic Acid Calcium Phosphorus Magnesium Ferritin AST ALT Alkaline Phosphatase Total Protein Albumin Arterial Blood Ionized Calcium Ur Specific [place] Salicylates Acetaminophen 07/23/21 07/23/21 07/23/21 15:36 15:47 15:47 WBC RBC Hgb Hct MCV MCH MCHC Baso # (Auto) Seg Neutrophils % Seg Neuts % (Manual) Seg Neutrophils # Man PT INR ABG pH POC ABG pO2 ABG HCO3 ABG Base Excess ABG Hemoglobin ABG Oxyhemoglobin ABG Potassium ABG Chloride VBG pH Carboxyhemoglobin Sodium 148 H Potassium 3.0 L Chloride 112.8 H Carbon Dioxide 19 L Creatinine 1.4 H Glucose 135 H POC Glucose 124 H Hemoglobin A1c Lactic Acid 4.20 H* Calcium Phosphorus Magnesium Ferritin AST ALT Alkaline Phosphatase Total Protein Albumin Arterial Blood Ionized Calcium Ur Specific [place] Salicylates Acetaminophen 07/23/21 07/23/21 07/23/21 16:46 17:45 18:28 WBC RBC Hgb Hct MCV MCH MCHC [place] # (Auto) Seg Neutrophils % Seg Neuts % (Manual) Seg Neutrophils # Man PT INR ABG pH POC ABG pO2 ABG HCO3 ABG Base Excess ABG Hemoglobin ABG Oxyhemoglobin ABG Potassium ABG Chloride VBG pH Carboxyhemoglobin Sodium Potassium Chloride Carbon Dioxide Creatinine Glucose POC Glucose 126 H 139 H 144 H Hemoglobin A1c Lactic Acid Calcium Phosphorus Magnesium Ferritin AST ALT Alkaline Phosphatase Total Protein Albumin Arterial Blood Ionized Calcium Ur Specific [place] Salicylates Acetaminophen 07/23/21 07/23/21 07/23/21 20:27 21:36 22:22 WBC RBC Hgb Hct MCV MCH MCHC Baso # (Auto) Seg Neutrophils % Seg Neuts % (Manual) Seg Neutrophils # Man PT INR ABG pH POC ABG pO2 ABG HCO3 ABG Base Excess ABG Hemoglobin ABG Oxyhemoglobin ABG Potassium ABG Chloride VBG pH Carboxyhemoglobin Sodium Potassium Chloride 115.2 H Carbon Dioxide 18 L Creatinine 1.5 H Glucose 155 H POC Glucose 154 H 133 H Hemoglobin A1c Lactic Acid Calcium Phosphorus Magnesium Ferritin AST ALT Alkaline Phosphatase Total Protein Albumin Arterial Blood Ionized Calcium Ur Specific [place] Salicylates Acetaminophen 07/23/21 07/23/21 07/24/21 22:37 23:46 00:29 WBC RBC Hgb Hct MCV MCH MCHC Baso # (Auto) Seg Neutrophils % Seg Neuts % (Manual) Seg Neutrophils # Man PT INR ABG pH POC ABG pO2 ABG HCO3 ABG Base Excess ABG Hemoglobin ABG Oxyhemoglobin ABG Potassium ABG Chloride VBG pH Carboxyhemoglobin Sodium Potassium Chloride Carbon Dioxide Creatinine Glucose POC Glucose 130 H 111 H 155 H Hemoglobin A1c Lactic Acid Calcium Phosphorus Magnesium Ferritin AST ALT Alkaline Phosphatase Total Protein Albumin Arterial Blood Ionized Calcium Ur Specific [place] Salicylates Acetaminophen 07/24/21 07/24/21 07/24/21 02:01 03:11 03:29 WBC RBC Hgb Hct MCV MCH MCHC Baso # (Auto) Seg Neutrophils % Seg Neuts % (Manual) Seg Neutrophils # Man PT INR ABG pH 7.534 H POC ABG pO2 ABG HCO3 18.5 L ABG Base Excess -2.6 L ABG Hemoglobin 11.3 L ABG Oxyhemoglobin ABG Potassium ABG Chloride VBG pH Carboxyhemoglobin Sodium Potassium Chloride Carbon Dioxide Creatinine Glucose POC Glucose 140 H 159 H Hemoglobin A1c Lactic Acid Calcium Phosphorus Magnesium Ferritin AST ALT Alkaline Phosphatase Total Protein Albumin Arterial Blood Ionized Calcium Ur Specific [place] Salicylates Acetaminophen 07/24/21 07/24/21 07/24/21 04:06 04:41 04:41 WBC RBC 3.19 L Hgb 11.0 L Hct 33.5 L D MCV 105 H MCH 35 H MCHC Baso # (Auto) Seg Neutrophils % Seg Neuts % (Manual) Seg Neutrophils # Man PT INR ABG pH POC ABG pO2 ABG HCO3 ABG Base Excess ABG Hemoglobin ABG Oxyhemoglobin ABG Potassium ABG Chloride VBG pH Carboxyhemoglobin Sodium Potassium Chloride 114.8 H Carbon Dioxide 18 L Creatinine 1.4 H Glucose 178 H POC Glucose 167 H Hemoglobin A1c Lactic Acid Calcium 8.1 L Phosphorus Magnesium Ferritin AST 62 H ALT Alkaline Phosphatase Total Protein Albumin 2.8 L Arterial Blood Ionized Calcium Ur Specific [place] Salicylates Acetaminophen 07/24/21 07/24/21 07/24/21 04:41 05:13 06:01 WBC RBC Hgb Hct MCV MCH MCHC Baso # (Auto) Seg Neutrophils % Seg Neuts % (Manual) Seg Neutrophils # Man PT INR ABG pH POC ABG pO2 ABG HCO3 ABG Base Excess ABG Hemoglobin ABG Oxyhemoglobin ABG Potassium ABG Chloride VBG pH Carboxyhemoglobin Sodium Potassium Chloride Carbon Dioxide Creatinine Glucose POC Glucose 162 H 173 H Hemoglobin A1c Lactic Acid Calcium Phosphorus Magnesium Ferritin 657.6 H AST ALT Alkaline Phosphatase Total Protein Albumin Arterial Blood Ionized Calcium Ur Specific [place] Salicylates Acetaminophen 07/24/21 07/24/21 07/24/21 07:15 08:26 09:47 WBC RBC Hgb Hct MCV MCH MCHC Baso # (Auto) Seg Neutrophils % Seg Neuts % (Manual) Seg Neutrophils # Man PT INR ABG pH POC ABG pO2 ABG HCO3 ABG Base Excess ABG Hemoglobin ABG Oxyhemoglobin ABG Potassium ABG Chloride VBG pH Carboxyhemoglobin Sodium Potassium Chloride Carbon Dioxide Creatinine Glucose POC Glucose 151 H 150 H 155 H Hemoglobin A1c Lactic Acid Calcium Phosphorus Magnesium Ferritin AST ALT Alkaline Phosphatase Total Protein Albumin Arterial Blood Ionized Calcium Ur Specific [place] Salicylates Acetaminophen 07/24/21 07/24/21 07/24/21 10:50 11:48 17:22 WBC RBC Hgb Hct MCV MCH MCHC Baso # (Auto) Seg Neutrophils % Seg Neuts % (Manual) Seg Neutrophils # Man PT INR ABG pH POC ABG pO2 ABG HCO3 ABG Base Excess ABG Hemoglobin ABG Oxyhemoglobin ABG Potassium ABG Chloride VBG pH Carboxyhemoglobin Sodium Potassium Chloride Carbon Dioxide Creatinine Glucose POC Glucose 150 H 145 H 129 H Hemoglobin A1c Lactic Acid Calcium Phosphorus Magnesium Ferritin AST ALT Alkaline Phosphatase Total Protein Albumin Arterial Blood Ionized Calcium Ur Specific [place] Salicylates Acetaminophen 07/25/21 07/25/21 07/25/21 00:31 04:56 04:56 WBC RBC 3.43 L Hgb Hct MCV 107 H MCH 35 H MCHC Baso # (Auto) Seg Neutrophils % Seg Neuts % (Manual) Seg Neutrophils # Man PT INR ABG pH POC ABG pO2 ABG HCO3 ABG Base Excess ABG Hemoglobin ABG Oxyhemoglobin ABG Potassium ABG Chloride VBG pH Carboxyhemoglobin Sodium 152 H Potassium Chloride 113.9 H Carbon Dioxide 21 L Creatinine Glucose 122 H POC Glucose 117 H Hemoglobin A1c Lactic Acid Calcium Phosphorus 5.10 H D Magnesium Ferritin AST ALT Alkaline Phosphatase Total Protein Albumin Arterial Blood Ionized Calcium Ur Specific [place] Salicylates Acetaminophen 07/25/21 07/25/21 07/25/21 05:24 11:36 17:35 WBC RBC Hgb Hct MCV MCH MCHC Baso # (Auto) Seg Neutrophils % Seg Neuts % (Manual) Seg Neutrophils # Man PT INR ABG pH POC ABG pO2 ABG HCO3 ABG Base Excess ABG Hemoglobin ABG Oxyhemoglobin ABG Potassium ABG Chloride VBG pH Carboxyhemoglobin Sodium Potassium Chloride Carbon Dioxide Creatinine Glucose POC Glucose 117 H 134 H 146 H Hemoglobin A1c Lactic Acid Calcium Phosphorus Magnesium Ferritin AST ALT Alkaline Phosphatase Total Protein Albumin Arterial Blood Ionized Calcium Ur Specific [place] Salicylates Acetaminophen 07/25/21 07/26/21 07/26/21 21:16 04:35 07:13 WBC RBC Hgb Hct MCV MCH MCHC Baso # (Auto) Seg Neutrophils % Seg Neuts % (Manual) Seg Neutrophils # Man PT INR ABG pH POC ABG pO2 ABG HCO3 ABG Base Excess ABG Hemoglobin ABG Oxyhemoglobin ABG Potassium ABG Chloride VBG pH Carboxyhemoglobin Sodium Potassium Chloride Carbon Dioxide Creatinine Glucose 145 H POC Glucose 116 H 139 H Hemoglobin A1c Lactic Acid Calcium Phosphorus Magnesium Ferritin AST 64 H ALT Alkaline Phosphatase 136 H Total Protein 8.3 H D Albumin 3.4 L Arterial Blood Ionized Calcium Ur Specific [place] Salicylates Acetaminophen 07/26/21 07/26/21 11:06 15:32 WBC RBC Hgb Hct MCV MCH MCHC Baso # (Auto) Seg Neutrophils % Seg Neuts % (Manual) Seg Neutrophils # Man PT INR ABG pH POC ABG pO2 ABG HCO3 ABG Base Excess ABG Hemoglobin ABG Oxyhemoglobin ABG Potassium ABG Chloride VBG pH Carboxyhemoglobin Sodium Potassium Chloride Carbon Dioxide Creatinine Glucose POC Glucose 157 H 209 H Hemoglobin A1c Lactic Acid Calcium Phosphorus Magnesium Ferritin AST ALT Alkaline Phosphatase Total Protein Albumin Arterial Blood Ionized Calcium Ur Specific [place] Salicylates Acetaminophen Chest x-ray: report reviewed, image reviewed Additional Studies: CHEST 1 VIEW 07/24/2021 9:04 AM INDICATION / CLINICAL INFORMATION: follow up respiratory failure. COMPARISON: 07/23/2021 FINDINGS: SUPPORT DEVICES: Endotracheal tube is in stable position. HEART / MEDIASTINUM: Stable. LUNGS / PLEURA: Lung volumes are low with increased interstitial markings. New patchy opacity at left lung base. ADDITIONAL FINDINGS: No significant additional findings. IMPRESSION: 1. New patchy opacity at left lung base concerning for pneumonia versus atelectasis. 2. Bilateral mild increased interstitial markings could represent low lung volumes versus mild interstitial edema. Allied health notes reviewed: RT
[2021-07-26] MEDS: SENNOSIDES/DOCUSATE SODIUM 8.6/50 MG TAB PO SCH (21:43)
[2021-07-26] MEDS: levETIRAcetam 500 MG TAB PO SCH (21:43)
[2021-07-27] MEDS: HEPARIN 5,000 UNIT/1 ML VIAL SUB-Q SCH ×2 (06:05→13:13)
[2021-07-27] MEDS: hydrALAZINE 20 MG/1 ML INJ IV PRN (06:05)
--- NOTE | 2021-07-27 07:38 | Progress Note ---
Assessment and Plan Assessment and plan: HPI This is a 46-year-old male with seizures, EtOH and marijuana abuse presented to emergency department on 07/22 via EMS for evaluation of multiple seizures with the least one witnessed seizure. Patient had SVT with EMS which was terminated with 6 mg of adenosine, Accu-Cheks in the field was said to be "high". Upon arrival to the emergency department patient was tachycardic and hypertensive with copious secretions in his oral cavity and was subsequently intubated in the emergency department. Work-up in the emergency department revealed leukocytosis, hyperkalemia, metabolic acidosis, elevated blood glucose of 941, transaminitis, elevated BUN/creatinine and anion gap. CXR, CT head and CTA head/neck were negative. Patient was admitted to the hospitalist service with consults to neurology, CCM, nephrology and GI. Hospital Course 07/23/21- Patient remains intubated and sedate, RASS -4. Remains on DKA protocol, plan to transition to SubQ insulin once gap is closed. Renal function is improving and electrolytes were repleted. Will continue cont. IVF and monitor and replaced eletrolytes as needed. Serial BMP, phosp, and mag ordered. 07/24: Patient was extubated today. Awaiting ST evaluation. Insulin drip discontinued today and given one-time dose of long-acting insulin and place on SSI. Will start long-acting insulin scheduled once p.o. intake evaluated. 07/25: Patient passed bedside swallow eval today, and EEG was completed today. MRI brain completed. Patient will be transferred to the floor today. Neurology recommends follow-up with outpatient neurology. 07/26: no acute events overnight, transferred to floor 07/27: Assessment and Plan Neuro: Acute metabolic encephalopathy, seizure disorder, EtOH abuse -CT head with no acute intracranial abnormalities -EEG pending -Neurology consult, appreciate recommendations -Continue [facility] protocol -Maintain sleep-wake cycle -Avoid delirium -MRI brain shows not acute findings -Seizure/aspiration precautions Cardio: s/p SVT -Patient had SVT on route with EMS which was terminated with adenosine -Blood pressure monitoring per protocol Respiratory: Acute hypoxic respiratory failure -Patient was intubated on 07/22- 07/24 -Currently on RA to nasal cannula -SPO2 monitoring -Pulmonary hygiene GI: Transaminitis (resolving) -GI consulted, appreciate recommendations -Signed off today -Transaminitis likely secondary to EtOH abuse, acute ischemic injury and malnut rition -Avoid hypotension/epigastric medications per GI -06/2011 ultrasound completed which showed findings suggestive of hepatic steatosis, unremarkable UA system, pancreas and distal aorta obscured; limited exam due to bowel gas -PPI -BR: Senokot -24-hour -3070 mL : Acute kidney injury likely secondary to vasomotor nephropathy -Nephrology consulted, appreciate recommendations -Received renal contrast on 07/22 -S/p MIVF -Trend BMP -Per nephrology: Likely baseline CKD -Avoid nephrotoxic medications -Renally dose medications -Renal ultrasound pending -Encourage p.o. intake Endo: DKA -S/p insulin drip -CC diet -Avoid hypoglycemia -Long-acting insulin, titrate as needed -Accu-Cheks every before meals at bedtime -SSI -Hemoglobin A1c 9.6 ID: SIRS -Presented with leukocytosis and acute hypoxic respiratory failure -Follow culture data -Follow-up blood cultures -Empiric antibiotics x1 in the ED Heme: Leukocytosis (resolved) -SCDs to bilateral proximal in bed -trend CBC -Transfuse hemoglobin less than 7 -Lovenox subcu Hospitalist Physical - Physical exam Narrative exam: General appearance: Present: no acute distress, well-nourished, other - EENT Eyes: Present: PERRL, EOM intact ENT: hearing intact, clear oral mucosa, dentition normal - Neck Neck: Present: normal ROM - Respiratory Respiratory effort: normal Respiratory: bilateral: CTA - Cardiovascular Rhythm: regular Heart Sounds: Present: S1 & S2. Absent: systolic murmur, diastolic murmur - Extremities Extremities: no ischemia, pulses intact, pulses symmetrical, No edema, normal temperature, normal color, Full ROM Peripheral Pulses: within normal limits - Abdominal General gastrointestinal: soft, non-tender, non-distended, normal bowel sounds - Integumentary Integumentary: Present: warm, dry - Psychiatric Psychiatric: cooperative - Neurologic Neurologic: CNII-XII intact, no focal deficits, moves all extremities - Allied Health Allied health notes reviewed: nursing, RT, social work - Constitutional Vitals: Temp Pulse Resp BP Pulse Ox 97.9 F 106 H 18 157/108 97 07/27/21 04:40 07/27/21 04:40 07/27/21 04:40 07/27/21 04:40 07/27/21 04:40 General appearance: Present: no acute distress, well-nourished, other HEART Score - HEART Score Troponin: Troponin T < 0.010 ng/mL (0.00-0.029) 07/22/21 19:18 Results - Labs CBC & Chem 7: 07/25/21 04:56 07/26/21 04:35 Labs: Laboratory Last Values WBC 9.2 K/mm3 (4.5-11.0) 07/25/21 04:56 RBC 3.43 M/mm3 (3.65-5.03) L 07/25/21 04:56 Hgb 11.9 gm/dl (11.8-15.2) 07/25/21 04:56 Hct 36.6 % (35.5-45.6) 07/25/21 04:56 MCV 107 fl (84-94) H 07/25/21 04:56 MCH 35 pg (28-32) H 07/25/21 04:56 MCHC 33 % (32-34) 07/25/21 04:56 RDW 14.9 % (13.2-15.2) 07/25/21 04:56 Plt Count 233 K/mm3 (140-440) 07/25/21 04:56 [place] % (Auto) 5.6 % (0.0-7.3) 07/22/21 19:18 Baso # (Auto) 0.2 K/mm3 (0.0-0.1) H 07/22/21 19:18 Add Manual Diff Complete 07/22/21 19:18 Total Counted 100 07/22/21 19:18 Seg Neutrophils % 78.4 % (40.0-70.0) H 07/22/21 19:18 Seg Neuts % (Manual) 75.0 % (40.0-70.0) H 07/22/21 19:18 Band Neutrophils % 4.0 % 07/22/21 19:18 Lymphocytes % (Manual) 17.0 % (13.4-35.0) 07/22/21 19:18 Monocytes % (Manual) 3.0 % (0.0-7.3) 07/22/21 19:18 Eosinophils % (Manual) 1.0 % (0.0-4.3) 07/22/21 19:18 Nucleated RBC % Not Reportable 07/22/21 19:18 Seg Neutrophils # Man 13.3 K/mm3 (1.8-7.7) H 07/22/21 19:18 Band Neutrophils # 0.7 K/mm3 07/22/21 19:18 Lymphocytes # (Manual) 3.0 K/mm3 (1.2-5.4) 07/22/21 19:18 Abs React Lymphs (Man) 0.0 K/mm3 07/22/21 19:18 Monocytes # (Manual) 0.5 K/mm3 (0.0-0.8) 07/22/21 19:18 Eosinophils # (Manual) 0.2 K/mm3 (0.0-0.4) 07/22/21 19:18 Basophils # (Manual) 0.0 K/mm3 (0.0-0.1) 07/22/21 19:18 Metamyelocytes # 0.0 K/mm3 07/22/21 19:18 Myelocytes # 0.0 K/mm3 07/22/21 19:18 Promyelocytes # 0.0 K/mm3 07/22/21 19:18 Blast Cells # 0.0 K/mm3 07/22/21 19:18 WBC Morphology Not Reportable 07/22/21 19:18 Hypersegmented Neuts Not Reportable 07/22/21 19:18 Hyposegmented Neuts Not Reportable 07/22/21 19:18 Hypogranular Neuts Not Reportable 07/22/21 19:18 Smudge Cells Not Reportable 07/22/21 19:18 Toxic Granulation Not Reportable 07/22/21 19:18 Toxic Vacuolation Not Reportable 07/22/21 19:18 Dohle Bodies Not Reportable 07/22/21 19:18 Pelger-Huet Anomaly Not Reportable 07/22/21 19:18 Jacek Rods Not Reportable 07/22/21 19:18 Platelet Estimate Consistent w auto 07/22/21 19:18 Clumped Platelets Not Reportable 07/22/21 19:18 Plt Clumps, EDTA Not Reportable 07/22/21 19:18 Large Platelets Not Reportable 07/22/21 19:18 Giant Platelets Not Reportable 07/22/21 19:18 Platelet Satelliting Not Reportable 07/22/21 19:18 Plt Morphology Comment Not Reportable 07/22/21 19:18 RBC Morphology Not Reportable 07/22/21 19:18 Dimorphic RBCs Not Reportable 07/22/21 19:18 Polychromasia Not Reportable 07/22/21 19:18 Hypochromasia Not Reportable 07/22/21 19:18 Poikilocytosis Not Reportable 07/22/21 19:18 Anisocytosis 1+ 07/22/21 19:18 Microcytosis Not Reportable 07/22/21 19:18 Macrocytosis 1+ 07/22/21 19:18 Spherocytes Not Reportable 07/22/21 19:18 Pappenheimer Bodies Not Reportable 07/22/21 19:18 Sickle Cells Not Reportable 07/22/21 19:18 Target Cells Not Reportable 07/22/21 19:18 Tear Drop Cells Not Reportable 07/22/21 19:18 Ovalocytes Not Reportable 07/22/21 19:18 Helmet Cells Not Reportable 07/22/21 19:18 [place] Bodies Not Reportable 07/22/21 19:18 [place] Rings Not Reportable 07/22/21 19:18 [place] Cells Not Reportable 07/22/21 19:18 Bite Cells Not Reportable 07/22/21 19:18 Crenated Cell Not Reportable 07/22/21 19:18 Elliptocytes Not Reportable 07/22/21 19:18 Acanthocytes (Spur) Not Reportable 07/22/21 19:18 Rouleaux Not Reportable 07/22/21 19:18 Hemoglobin C Crystals Not Reportable 07/22/21 19:18 Schistocytes Not Reportable 07/22/21 19:18 Malaria parasites Not Reportable 07/22/21 19:18 Dieudonne Bodies Not Reportable 07/22/21 19:18 Hem Pathologist Commnt No 07/22/21 19:18 PT 17.4 Sec. (12.2-14.9) H 07/22/21 19:18 INR 1.29 (0.87-1.13) H 07/22/21 19:18 APTT 28.3 Sec. (24.2-36.6) 07/22/21 19:18 Thrombin Time 18.0 Sec. (15.1-19.6) 07/22/21 19:18 ABG pH 7.534 pH Units (7.350-7.450) H 07/24/21 03:29 POC ABG pCO2 44.7 mmHg (32.0-48.0) 07/22/21 21:09 ABG pCO2 22.4 mm Hg 07/24/21 03:29 POC ABG pO2 189.2 mmHg (83-108) H 07/22/21 21:09 ABG pO2 80.2 mm Hg (80.0-90.0) 07/24/21 03:29 POC ABG HCO3 18.8 07/22/21 21:09 ABG HCO3 18.5 mmol/L (20.0-26.0) L 07/24/21 03:29 ABG O2 Saturation 95.8 % (95.0-99.0) 07/24/21 03:29 POC ABG Base Excess -8.3 07/22/21 21:09 ABG Base Excess -2.6 mmol/L (-2.0-3.0) L 07/24/21 03:29 ABG Hemoglobin 11.3 gm/dl (14.0-18.0) L 07/24/21 03:29 ABG Oxyhemoglobin 98.7 (94-98) H 07/22/21 21:09 ABG Carboxyhemoglobin 0.3 % (0.0-5.0) 07/24/21 03:29 ABG Methemoglobin 0.3 % (0.0-1.5) 07/24/21 03:29 ABG Sodium 141.6 mmol/L (136.0-145.0) 07/22/21 21:09 ABG Potassium 4.6 mmol/L (3.40-4.50) H 07/22/21 21:09 ABG Chloride 97.0 mmol/L (98-107) L 07/22/21 21:09 VBG pH 7.030 (7.320-7.420) L* 07/22/21 19:18 Oxyhemoglobin 95.2 % (95.0-99.0) 07/24/21 03:29 Carboxyhemoglobin 0.3 (0.5-1.5) L 07/22/21 21:09 FiO2 30 % 07/24/21 03:29 FiO2 % 100.0 07/22/21 21:09 Sodium 138 mmol/L (137-145) D 07/26/21 04:35 Potassium 3.6 mmol/L (3.6-5.0) D 07/26/21 04:35 Chloride 102.0 mmol/L (98-107) 07/26/21 04:35 Carbon Dioxide 22 mmol/L (22-30) 07/26/21 04:35 Anion Gap 18 mmol/L 07/26/21 04:35 BUN 12 mg/dL (9-20) 07/26/21 04:35 Creatinine 1.1 mg/dL (0.8-1.3) 07/26/21 04:35 Estimated GFR > 60 ml/min 07/26/21 04:35 BUN/Creatinine Ratio 11 % 07/26/21 04:35 Glucose 145 mg/dL (75-100) H 07/26/21 04:35 POC Glucose 139 mg/dL (70-105) H 07/27/21 07:29 Hemoglobin A1c 9.8 % (4-6) H 07/22/21 22:46 Lactic Acid 1.40 mmol/L (0.7-2.0) 07/24/21 00:16 Calcium 9.0 mg/dL (8.4-10.2) 07/26/21 04:35 Phosphorus 5.10 mg/dL (2.5-4.5) H D 07/25/21 04:56 Magnesium 2.20 mg/dL (1.7-2.3) 07/24/21 04:41 Ferritin 657.6 ng/mL (30.0-300.0) H 07/24/21 04:41 Total Bilirubin 0.80 mg/dL (0.1-1.2) 07/26/21 04:35 AST 64 units/L (5-40) H 07/26/21 04:35 ALT 44 units/L (7-56) 07/26/21 04:35 Alkaline Phosphatase 136 units/L (35-129) H 07/26/21 04:35 Total Creatine Kinase 166 units/L (55-170) 07/22/21 19:18 CK-MB (CK-2) 3.2 ng/mL (0.0-4.0) 07/22/21 19:18 CK-MB (CK-2) Rel Index 1.9 (0-4) 07/22/21 19:18 Troponin T < 0.010 ng/mL (0.00-0.029) 07/22/21 19:18 Total Protein 8.3 g/dL (6.3-8.2) H D 07/26/21 04:35 Albumin 3.4 g/dL (3.9-5) L 07/26/21 04:35 Albumin/Globulin Ratio 0.7 % 07/26/21 04:35 TSH 2.290 mlU/mL (0.270-4.200) 07/24/21 04:41 Arterial Blood Ionized Calcium 5.6 mg/dL (4.6-5.3) H 07/22/21 21:09 Urine Color Straw (Yellow) 07/22/21 20:01 Urine Turbidity Clear (Clear) 07/22/21 20: Urine pH 6.0 (5.0-7.0) 07/22/21 20: Ur Specific [place] 1.033 (1.003-1.030) H 07/22/21 20:01 Urine Protein 100 mg/dl mg/dL (Negative) 07/22/21 20:01 Urine Glucose (UA) >=500 mg/dL (Negative) 07/22/21 20:01 Urine Ketones Neg mg/dL (Negative) 07/22/21 20: Urine Blood Mod (Negative) 07/22/21 20: Urine Nitrite Neg (Negative) 07/22/21 20:01 Urine Bilirubin Neg (Negative) 07/22/21 20:01 Urine Urobilinogen < 2.0 mg/dL (<2.0) 07/22/21 20:01 Ur Leukocyte Esterase Neg (Negative) 07/22/21 20:01 Urine WBC (Auto) 2.0 /HPF (0.0-6.0) 07/22/21 20:01 Urine RBC (Auto) 1.0 /HPF (0.0-6.0) 07/22/21 20:01 Urine Bacteria (Auto) 1+ /HPF (Negative) 07/22/21 20: Urine Mucus Few /HPF 07/22/21 20:01 Salicylates 0.6 mg/dL (2.8-20.0) L 07/22/21 19:18 Urine Opiates Screen Negative 07/22/21 20:01 Urine Methadone Screen Negative 07/22/21 20:01 Acetaminophen 5.0 ug/mL (10.0-30.0) L 07/22/21 19:18 Ur Barbiturates Screen Negative 07/22/21 20:01 Ur Phencyclidine Scrn Negative 07/22/21 20:01 Ur Amphetamines Screen Negative 07/22/21 20:01 U Benzodiazepines Scrn Negative 07/22/21 20:01 Urine Cocaine Screen Negative 07/22/21 20:01 U Marijuana (THC) Screen Negative 07/22/21 20:01 Drugs of Abuse Note Disclamer 07/22/21 20:01 Plasma/Serum Alcohol < 0.01 % (0-0.07) 07/22/21 19:18 Microbiology: Microbiology 07/22/21 21:29 Peripheral/Venous Blood Culture - Preliminary NO GROWTH AFTER 4 DAYS 07/22/21 21:50 Peripheral/Venous Blood Culture - Preliminary NO GROWTH AFTER 4 DAYS 07/22/21 23:05 Tracheal Aspirate Sputum Culture - Final Klebsiella Pneumoniae Corley/IV: Voiding Method Urinal Active Medications - Current Medications Current Medications: Generic Name Dose Route Start Last Admin Trade Name Freq PRN Reason Stop Dose Admin Acetaminophen 650 mg 07/22/21 21:57 Acetaminophen 650 Mg Rect Supp IA Q6H PRN Pain MILD(1-3)/Fever >100.5/BERNAL Dextrose 50 ml 07/25/21 11:00 Dextrose 50% In Water (25gm) 50 Ml Syringe IV Q30MIN PRN Hypoglycemia Protocol Famotidine 20 mg 07/26/21 10:00 07/26/21 09:00 Famotidine 20 Mg Tab PO 20 mg QDAY ROMERO Administration Heparin Sodium (Porcine) 5,000 unit 07/23/21 06:00 07/27/21 06:05 Heparin 5,000 Unit/1 Ml Vial SUB-Q 5,000 unit Q8HR ROMERO Administration Hydralazine HCl 10 mg 07/25/21 01:38 07/27/21 06:05 Hydralazine 20 Mg/1 Ml Inj IV 10 mg Q6H PRN Administration Hypertension Insulin Human Isoph/Insulin Regular 7 unit 07/26/21 17:00 07/26/21 17:15 Insulin Nph/Regular 70/30 Inj SUB-Q 7 unit BIDDIAB ROMERO Administration Insulin Human Lispro 0 unit 07/25/21 11:30 07/26/21 21:48 Insulin Lispro 100 Unit/Ml SUB-Q Not Given ACHS [facility] Protocol Levetiracetam 500 mg 07/26/21 22:00 07/26/21 21:43 Levetiracetam 500 Mg Tab PO 500 mg BID ROMERO Administration Lorazepam 2 mg 07/23/21 05:10 07/25/21 11:00 Lorazepam 2 Mg/Ml Vial IV 2 mg Q1H PRN Administration CIWA-Ar 8-15 Lorazepam 4 mg 07/23/21 05:10 07/24/21 07:32 Lorazepam 2 Mg/Ml Vial IV 4 mg Q1H PRN Administration CIWA-Ar 16-25 Lorazepam 4 mg 07/23/21 05:10 Lorazepam 2 Mg/Ml Vial IV Q15MIN PRN CIWA-Ar >25 Magnesium Hydroxide 30 ml 07/22/21 21:57 Magnesium Hydroxide (Mom) Oral Liqd Udc PO Q4H PRN Constipation Morphine Sulfate 2 mg 07/22/21 21:57 07/24/21 07:32 Morphine 2 Mg/1 Ml Inj IV 2 mg Q4H PRN Administration Pain, Moderate (4-6) Morphine Sulfate 4 mg 07/22/21 21:57 Morphine 4 Mg/1 Ml Inj IV Q4H PRN Pain , Severe (7-10) Senna/Docusate Sodium 1 tab 07/25/21 22:00 07/26/21 21:43 Sennosides/Docusate Sodium 8.6/50 Mg Tab PO 1 tab QHS ROMERO Administration Sodium Chloride 10 ml 07/22/21 22:00 07/26/21 21:43 Sodium Chloride 0.9% 10 Ml Flush Syringe IV 10 ml BID ROMERO Administration Sodium Chloride 10 ml 07/22/21 21:57 Sodium Chloride 0.9% 10 Ml Flush Syringe IV PRN PRN LINE FLUSH Nutrition/Malnutrition Assess - Dietary Evaluation Nutrition/Malnutrition Findings: Nutrition Notes Start: 07/23/21 09:29 Freq: Status: Active Protocol: Document 07/25/21 15:19 [facility] (Rec: 07/25/21 15:23 [facility] [id number]) Nutrition Notes Initial or Follow up Reassessment Current Diagnosis Acute Kidney Injury,Diabetes Other Pertinent Diagnosis Acute metabolic encephalopathy , Seizures, EtOH dependence Current Diet Consistent CHO Labs/Tests Na 152 Phos 5.1 POC Glu range since last assessment: 117-173 Pertinent Medications Reviewed Height 5 ft 8 in Weight 76.5 kg [place] Body Weight (kg) 70.00 BMI 25.6 Weight Status Appropriate Subjective/Other Information Pt extubated yesterday and diet advanced for breakfast this am. Pt remains on CIWA protocol. Burn Absent Trauma Absent #1 Nutrition Diagnosis Inadequate oral intake As Evidenced by Signs and Symptoms diet advanced this am; pt no longer on vent support Diagnosis Progress(for reassessment Improved documentation) Is patient on ventilator? No Is Patient Ambulatory and/or Out of Bed No REE-([place] Jeor-confined to bed) [phone] Calculation [facility]ations [facility] Additional Notes Protein: 1.2-2g/kg (92-153g) Fluid: 1 ml/kcal or per MD Nutrition Intervention Change Diet Order: Continue current diet order Goal #1 PO intake to meet at least 75% energy and pro needs Anticipated Discharge Needs: None identified at this time Follow-Up By: 07/27/21 Additional Comments F/U: intakes, need for ONS
[2021-07-27 07:59] LABS: Hematocrit 37.2 % (35.5-45.6); Mean Corpuscular HGB Conc 32 % (32-34); Mean Corpuscular Volume 103 fl (84-94); Platelet Count 303 K/mm3 (140-440); Red Cell Distribution Width 14.2 % (13.2-15.2)
[2021-07-27 08:24] LABS: BUN/Creatinine Ratio 13; Blood Urea Nitrogen 13 mg/dL (9-20); Calcium 8.6 mg/dL (8.4-10.2); Hemolysis Index 3
[2021-07-27] MEDS: INSULIN LISPRO 100 UNIT/ML SUB-Q SCH ×2 (09:36→13:12)
[2021-07-27] MEDS: INSULIN NPH/REGULAR 70/30 INJ SUB-Q SCH (09:37)
[2021-07-27] MEDS: FAMOTIDINE 20 MG TAB PO SCH (09:37)
[2021-07-27] MEDS: levETIRAcetam 500 MG TAB PO SCH (09:37)
--- NOTE | 2021-07-27 10:45 | Progress Note ---
Assessment and Plan Acute Hypoxemic Respiratory Failure Acute Metabolic Encephalopathy Seizure in the setting of alcohol use disorder Diabetic ketoacidosis ETOH abuse Acute Kidney Injury most likely ATN Hypokalemia Hypophosphatemia SIRS (systemic inflammatory response syndrome) Leukocytosis Lactic Acidosis - discharge planning opk respiratory-shine - continue care as below for now; - prn supplemental oxygen to keep O2 sats > 90% - prn bronchodilators (ZAHRA) with pulm hygiene per RT - avoid nephrotoxins, renally dose all medications - continue mobility protocols to prevent pressure ulcers - PT/OT as tolerated - Wound care per RN/WCT - accuchecks with glycemic control per SSI for target blood glucose < 180 mg/dL - tobacco abstinence strongly counseled at the bedside - home oxygen evaluation at discharge - GI & VTE prophylaxis - Flu & pneumovax per protocol - prn analgesia per pain score - continue other care per attending / other consultants ... re-evaluate in am & prn Subjective Date of service: 07/27/21 Principal diagnosis: Acute Hypoxemic Resp Failure; DKA; AMS; Seizures; QAMAR; SIRS Interval history: Patient is seen today for: Acute Hypoxemic Respiratory Failure; DKA; Acute [place] bolic Encephalopathy; Seizures; QAMAR; SIRS Seen and examined at bedside; 24hour events reviewed; nursing and respiratory care staff consulted; no adverse overnight events reported to me; resting in bed; up in bed; awaiting discharge denies N/V/F/C Objective Vital Signs - 12hr 07/26/21 07/27/21 07/27/21 23:40 04:40 08:00 Temperature 97.9 F Pulse Rate 106 H Respiratory 18 Rate Blood Pressure 171/113 157/108 O2 Sat by Pulse 97 95 Oximetry Constitutional: no acute distress Eyes: non-icteric ENT: oropharynx moist Neck: supple, no lymphadenopathy Effort: normal Ascultation: Bilateral: clear, diminished breath sounds Percussion: Bilateral: not dull Cardiovascular: regular rate and rhythm, other (S1,S2) Gastrointestinal: normoactive bowel sounds, soft, non-tender, non-distended Integumentary: normal Extremities: no cyanosis, no edema, pulses normal, no ischemia or petechiae Neurologic: non-focal exam (grossly), pupils equal and round, CN II-XII normal, motor strength normal and Psychiatric: mood appropriate, affect normal CBC and BMP: 07/27/21 07:00 07/27/21 07:00 ABG, PT/INR, D-dimer: ABG ABG pH 7.534 pH Units (7.350-7.450) H 07/24/21 03:29 POC ABG pCO2 44.7 mmHg (32.0-48.0) 07/22/21 21:09 ABG pCO2 22.4 mm Hg 07/24/21 03:29 POC ABG pO2 189.2 mmHg (83-108) H 07/22/21 21:09 ABG pO2 80.2 mm Hg (80.0-90.0) 07/24/21 03:29 POC ABG HCO3 18.8 07/22/21 21:09 ABG O2 Saturation 95.8 % (95.0-99.0) 07/24/21 03:29 PT/INR, D-dimer PT 17.4 Sec. (12.2-14.9) H 07/22/21 19:18 INR 1.29 (0.87-1.13) H 07/22/21 19:18 Abnormal lab findings: Abnormal Labs 07/22/21 07/22/21 07/22/21 19:18 19:18 19:18 WBC 17.7 H RBC Hgb Hct MCV 115 H MCH 34 H MCHC 30 L Baso # (Auto) 0.2 H Seg Neutrophils % 78.4 H Seg Neuts % (Manual) 75.0 H Seg Neutrophils # Man 13.3 H PT 17.4 H INR 1.29 H ABG pH POC ABG pO2 ABG HCO3 ABG Base Excess ABG Hemoglobin ABG Oxyhemoglobin ABG Potassium ABG Chloride VBG pH Carboxyhemoglobin Sodium Potassium 5.6 H Chloride 84.9 L Carbon Dioxide 6 L* Creatinine 1.9 H Glucose 941 H* POC Glucose Hemoglobin A1c Lactic Acid Calcium 11.6 H Phosphorus Magnesium Ferritin AST 270 H ALT 107 H Alkaline Phosphatase 334 H Total Protein 10.0 H Albumin Arterial Blood Ionized Calcium Ur Specific [place] Salicylates Acetaminophen 07/22/21 07/22/21 07/22/21 19:18 19:18 19:18 WBC RBC Hgb Hct MCV MCH MCHC Baso # (Auto) Seg Neutrophils % Seg Neuts % (Manual) Seg Neutrophils # Man PT INR ABG pH POC ABG pO2 ABG HCO3 ABG Base Excess ABG Hemoglobin ABG Oxyhemoglobin ABG Potassium ABG Chloride VBG pH 7.030 L* Carboxyhemoglobin Sodium Potassium Chloride Carbon Dioxide Creatinine Glucose POC Glucose Hemoglobin A1c Lactic Acid Calcium Phosphorus Magnesium Ferritin AST ALT Alkaline Phosphatase Total Protein Albumin Arterial Blood Ionized Calcium Ur Specific [place] Salicylates 0.6 L Acetaminophen 5.0 L 07/22/21 07/22/21 07/22/21 20:01 20:29 20:58 WBC RBC Hgb Hct MCV MCH MCHC Baso # (Auto) Seg Neutrophils % Seg Neuts % (Manual) Seg Neutrophils # Man PT INR ABG pH POC ABG pO2 ABG HCO3 ABG Base Excess ABG Hemoglobin ABG Oxyhemoglobin ABG Potassium ABG Chloride VBG pH Carboxyhemoglobin Sodium Potassium Chloride Carbon Dioxide Creatinine Glucose POC Glucose > 600 H Hemoglobin A1c Lactic Acid Calcium Phosphorus 5.20 H Magnesium 3.00 H Ferritin AST ALT Alkaline Phosphatase Total Protein Albumin Arterial Blood Ionized Calcium Ur Specific [place] 1.033 H Salicylates Acetaminophen 07/22/21 07/22/21 07/22/21 20:58 21:09 21:29 WBC RBC Hgb Hct MCV MCH MCHC Baso # (Auto) Seg Neutrophils % Seg Neuts % (Manual) Seg Neutrophils # Man PT INR ABG pH 7.242 L POC ABG pO2 189.2 H ABG HCO3 ABG Base Excess ABG Hemoglobin ABG Oxyhemoglobin 98.7 H ABG Potassium 4.6 H ABG Chloride 97.0 L VBG pH Carboxyhemoglobin 0.3 L Sodium 135 L Potassium Chloride 91.5 L Carbon Dioxide 15 L D Creatinine 1.6 H Glucose 810 H* POC Glucose Hemoglobin A1c Lactic Acid 10.30 H* Calcium 11.0 H Phosphorus Magnesium Ferritin AST ALT Alkaline Phosphatase Total Protein Albumin Arterial Blood Ionized Calcium 5.6 H Ur Specific [place] Salicylates Acetaminophen 07/22/21 07/22/21 07/22/21 22:46 22:46 22:46 WBC RBC Hgb Hct MCV MCH MCHC Baso # (Auto) Seg Neutrophils % Seg Neuts % (Manual) Seg Neutrophils # Man PT INR ABG pH POC ABG pO2 ABG HCO3 ABG Base Excess ABG Hemoglobin ABG Oxyhemoglobin ABG Potassium ABG Chloride VBG pH Carboxyhemoglobin Sodium Potassium Chloride 96.7 L Carbon Dioxide 17 L Creatinine 1.5 H Glucose 659 H* POC Glucose Hemoglobin A1c 9.8 H Lactic Acid Calcium 10.6 H Phosphorus Magnesium 2.80 H Ferritin AST ALT Alkaline Phosphatase Total Protein Albumin Arterial Blood Ionized Calcium Ur Specific [place] Salicylates Acetaminophen 07/23/21 07/23/21 07/23/21 00:27 01:36 02:26 WBC RBC Hgb Hct MCV MCH MCHC Baso # (Auto) Seg Neutrophils % Seg Neuts % (Manual) Seg Neutrophils # Man PT INR ABG pH POC ABG pO2 ABG HCO3 ABG Base Excess ABG Hemoglobin ABG Oxyhemoglobin ABG Potassium ABG Chloride VBG pH Carboxyhemoglobin Sodium 148 H D Potassium 3.5 L Chloride Carbon Dioxide 21 L Creatinine 1.5 H Glucose 409 H POC Glucose 264 H 220 H Hemoglobin A1c Lactic Acid Calcium 10.8 H Phosphorus Magnesium Ferritin AST ALT Alkaline Phosphatase Total Protein Albumin Arterial Blood Ionized Calcium Ur Specific [place] Salicylates Acetaminophen 07/23/21 07/23/21 07/23/21 03:29 04:29 04:29 WBC RBC Hgb Hct MCV MCH MCHC Baso # (Auto) Seg Neutrophils % Seg Neuts % (Manual) Seg Neutrophils # Man PT INR ABG pH POC ABG pO2 ABG HCO3 ABG Base Excess ABG Hemoglobin ABG Oxyhemoglobin ABG Potassium ABG Chloride VBG pH Carboxyhemoglobin Sodium 150 H Potassium 2.7 L* D Chloride 111.7 H Carbon Dioxide Creatinine Glucose 181 H POC Glucose 189 H 155 H Hemoglobin A1c Lactic Acid Calcium Phosphorus Magnesium Ferritin AST ALT Alkaline Phosphatase Total Protein Albumin Arterial Blood Ionized Calcium Ur Specific [place] Salicylates Acetaminophen 07/23/21 07/23/21 07/23/21 05:27 06:33 07:48 WBC RBC Hgb Hct MCV MCH MCHC Baso # (Auto) Seg Neutrophils % Seg Neuts % (Manual) Seg Neutrophils # Man PT INR ABG pH POC ABG pO2 ABG HCO3 ABG Base Excess ABG Hemoglobin ABG Oxyhemoglobin ABG Potassium ABG Chloride VBG pH Carboxyhemoglobin Sodium Potassium Chloride Carbon Dioxide Creatinine Glucose POC Glucose 175 H 177 H 171 H Hemoglobin A1c Lactic Acid Calcium Phosphorus Magnesium Ferritin AST ALT Alkaline Phosphatase Total Protein Albumin Arterial Blood Ionized Calcium Ur Specific [place] Salicylates Acetaminophen 07/23/21 07/23/21 07/23/21 08:32 09:25 10:27 WBC RBC Hgb Hct MCV MCH MCHC Baso # (Auto) Seg Neutrophils % Seg Neuts % (Manual) Seg Neutrophils # Man PT INR ABG pH POC ABG pO2 ABG HCO3 ABG Base Excess ABG Hemoglobin ABG Oxyhemoglobin ABG Potassium ABG Chloride VBG pH Carboxyhemoglobin Sodium Potassium Chloride Carbon Dioxide Creatinine Glucose POC Glucose 216 H 142 H 136 H Hemoglobin A1c Lactic Acid Calcium Phosphorus Magnesium Ferritin AST ALT Alkaline Phosphatase Total Protein Albumin Arterial Blood Ionized Calcium Ur Specific [place] Salicylates Acetaminophen 07/23/21 07/23/21 07/23/21 10:32 10:32 11:32 WBC RBC Hgb Hct MCV MCH MCHC Baso # (Auto) Seg Neutrophils % Seg Neuts % (Manual) Seg Neutrophils # Man PT INR ABG pH POC ABG pO2 ABG HCO3 ABG Base Excess ABG Hemoglobin ABG Oxyhemoglobin ABG Potassium ABG Chloride VBG pH Carboxyhemoglobin Sodium 147 H Potassium 3.0 L Chloride 110.0 H Carbon Dioxide 20 L Creatinine Glucose 145 H POC Glucose 124 H Hemoglobin A1c Lactic Acid 4.10 H* Calcium Phosphorus 0.90 L* D Magnesium Ferritin AST ALT Alkaline Phosphatase Total Protein Albumin Arterial Blood Ionized Calcium Ur Specific [place] Salicylates Acetaminophen 07/23/21 07/23/21 07/23/21 12:36 13:33 14:33 WBC RBC Hgb Hct MCV MCH MCHC Baso # (Auto) Seg Neutrophils % Seg Neuts % (Manual) Seg Neutrophils # Man PT INR ABG pH POC ABG pO2 ABG HCO3 ABG Base Excess ABG Hemoglobin ABG Oxyhemoglobin ABG Potassium ABG Chloride VBG pH Carboxyhemoglobin Sodium Potassium Chloride Carbon Dioxide Creatinine Glucose POC Glucose 125 H 111 H 121 H Hemoglobin A1c Lactic Acid Calcium Phosphorus Magnesium Ferritin AST ALT Alkaline Phosphatase Total Protein Albumin Arterial Blood Ionized Calcium Ur Specific [place] Salicylates Acetaminophen 07/23/21 07/23/21 07/23/21 15:36 15:47 15:47 WBC RBC Hgb Hct MCV MCH MCHC Baso # (Auto) Seg Neutrophils % Seg Neuts % (Manual) Seg Neutrophils # Man PT INR ABG pH POC ABG pO2 ABG HCO3 ABG Base Excess ABG Hemoglobin ABG Oxyhemoglobin ABG Potassium ABG Chloride VBG pH Carboxyhemoglobin Sodium 148 H Potassium 3.0 L Chloride 112.8 H Carbon Dioxide 19 L Creatinine 1.4 H Glucose 135 H POC Glucose 124 H Hemoglobin A1c Lactic Acid 4.20 H* Calcium Phosphorus Magnesium Ferritin AST ALT Alkaline Phosphatase Total Protein Albumin Arterial Blood Ionized Calcium Ur Specific [place] Salicylates Acetaminophen 07/23/21 07/23/21 07/23/21 16:46 17:45 18:28 WBC RBC Hgb Hct MCV MCH MCHC Baso # (Auto) Seg Neutrophils % Seg Neuts % (Manual) Seg Neutrophils # Man PT INR ABG pH POC ABG pO2 ABG HCO3 ABG Base Excess ABG Hemoglobin ABG Oxyhemoglobin ABG Potassium ABG Chloride VBG pH Carboxyhemoglobin Sodium Potassium Chloride Carbon Dioxide Creatinine Glucose POC Glucose 126 H 139 H 144 H Hemoglobin A1c Lactic Acid Calcium Phosphorus Magnesium Ferritin AST ALT Alkaline Phosphatase Total Protein Albumin Arterial Blood Ionized Calcium Ur Specific [place] Salicylates Acetaminophen 07/23/21 07/23/21 07/23/21 20:27 21:36 22:22 WBC RBC Hgb Hct MCV MCH MCHC Baso # (Auto) Seg Neutrophils % Seg Neuts % (Manual) Seg Neutrophils # Man PT INR ABG pH POC ABG pO2 ABG HCO3 ABG Base Excess ABG Hemoglobin ABG Oxyhemoglobin ABG Potassium ABG Chloride VBG pH Carboxyhemoglobin Sodium Potassium Chloride 115.2 H Carbon Dioxide 18 L Creatinine 1.5 H Glucose 155 H POC Glucose 154 H 133 H Hemoglobin A1c Lactic Acid Calcium Phosphorus Magnesium Ferritin AST ALT Alkaline Phosphatase Total Protein Albumin Arterial Blood Ionized Calcium Ur Specific [place] Salicylates Acetaminophen 07/23/21 07/23/21 07/24/21 22:37 23:46 00:29 WBC RBC Hgb Hct MCV MCH MCHC Baso # (Auto) Seg Neutrophils % Seg Neuts % (Manual) Seg Neutrophils # Man PT INR ABG pH POC ABG pO2 ABG HCO3 ABG Base Excess ABG Hemoglobin ABG Oxyhemoglobin ABG Potassium ABG Chloride VBG pH Carboxyhemoglobin Sodium Potassium Chloride Carbon Dioxide Creatinine Glucose POC Glucose 130 H 111 H 155 H Hemoglobin A1c Lactic Acid Calcium Phosphorus Magnesium Ferritin AST ALT Alkaline Phosphatase Total Protein Albumin Arterial Blood Ionized Calcium Ur Specific [place] Salicylates Acetaminophen 07/24/21 07/24/21 07/24/21 02:01 03:11 03:29 WBC RBC Hgb Hct MCV MCH MCHC Baso # (Auto) Seg Neutrophils % Seg Neuts % (Manual) Seg Neutrophils # Man PT INR ABG pH 7.534 H POC ABG pO2 ABG HCO3 18.5 L ABG Base Excess -2.6 L ABG Hemoglobin 11.3 L ABG Oxyhemoglobin ABG Potassium ABG Chloride VBG pH Carboxyhemoglobin Sodium Potassium Chloride Carbon Dioxide Creatinine Glucose POC Glucose 140 H 159 H Hemoglobin A1c Lactic Acid Calcium Phosphorus Magnesium Ferritin AST ALT Alkaline Phosphatase Total Protein Albumin Arterial Blood Ionized Calcium Ur Specific [place] Salicylates Acetaminophen 07/24/21 07/24/21 07/24/21 04:06 04:41 04:41 WBC RBC 3.19 L Hgb 11.0 L Hct 33.5 L D MCV 105 H MCH 35 H MCHC Baso # (Auto) Seg Neutrophils % Seg Neuts % (Manual) Seg Neutrophils # Man PT INR ABG pH POC ABG pO2 ABG HCO3 ABG Base Excess ABG Hemoglobin ABG Oxyhemoglobin ABG Potassium ABG Chloride VBG pH Carboxyhemoglobin Sodium Potassium Chloride 114.8 H Carbon Dioxide 18 L Creatinine 1.4 H Glucose 178 H POC Glucose 167 H Hemoglobin A1c Lactic Acid Calcium 8.1 L Phosphorus Magnesium Ferritin AST 62 H ALT Alkaline Phosphatase Total Protein Albumin 2.8 L Arterial Blood Ionized Calcium Ur Specific [place] Salicylates Acetaminophen 07/24/21 07/24/21 07/24/21 04:41 05:13 06:01 WBC RBC Hgb Hct MCV MCH MCHC Baso # (Auto) Seg Neutrophils % Seg Neuts % (Manual) Seg Neutrophils # Man PT INR ABG pH POC ABG pO2 ABG HCO3 ABG Base Excess ABG Hemoglobin ABG Oxyhemoglobin ABG Potassium ABG Chloride VBG pH Carboxyhemoglobin Sodium Potassium Chloride Carbon Dioxide Creatinine Glucose POC Glucose 162 H 173 H Hemoglobin A1c Lactic Acid Calcium Phosphorus Magnesium Ferritin 657.6 H AST ALT Alkaline Phosphatase Total Protein Albumin Arterial Blood Ionized Calcium Ur Specific [place] Salicylates Acetaminophen 07/24/21 07/24/21 07/24/21 07:15 08:26 09:47 WBC RBC Hgb Hct MCV MCH MCHC Baso # (Auto) Seg Neutrophils % Seg Neuts % (Manual) Seg Neutrophils # Man PT INR ABG pH POC ABG pO2 ABG HCO3 ABG Base Excess ABG Hemoglobin ABG Oxyhemoglobin ABG Potassium ABG Chloride VBG pH Carboxyhemoglobin Sodium Potassium Chloride Carbon Dioxide Creatinine Glucose POC Glucose 151 H 150 H 155 H Hemoglobin A1c Lactic Acid Calcium Phosphorus Magnesium Ferritin AST ALT Alkaline Phosphatase Total Protein Albumin Arterial Blood Ionized Calcium Ur Specific [place] Salicylates Acetaminophen 07/24/21 07/24/21 07/24/21 10:50 11:48 17:22 WBC RBC Hgb Hct MCV MCH MCHC Baso # (Auto) Seg Neutrophils % Seg Neuts % (Manual) Seg Neutrophils # Man PT INR ABG pH POC ABG pO2 ABG HCO3 ABG Base Excess ABG Hemoglobin ABG Oxyhemoglobin ABG Potassium ABG Chloride VBG pH Carboxyhemoglobin Sodium Potassium Chloride Carbon Dioxide Creatinine Glucose POC Glucose 150 H 145 H 129 H Hemoglobin A1c Lactic Acid Calcium Phosphorus Magnesium Ferritin AST ALT Alkaline Phosphatase Total Protein Albumin Arterial Blood Ionized Calcium Ur Specific [place] Salicylates Acetaminophen 07/25/21 07/25/21 07/25/21 00:31 04:56 04:56 WBC RBC 3.43 L Hgb Hct MCV 107 H MCH 35 H MCHC Baso # (Auto) Seg Neutrophils % Seg Neuts % (Manual) Seg Neutrophils # Man PT INR ABG pH POC ABG pO2 ABG HCO3 ABG Base Excess ABG Hemoglobin ABG Oxyhemoglobin ABG Potassium ABG Chloride VBG pH Carboxyhemoglobin Sodium 152 H Potassium Chloride 113.9 H Carbon Dioxide 21 L Creatinine Glucose 122 H POC Glucose 117 H Hemoglobin A1c Lactic Acid Calcium Phosphorus 5.10 H D Magnesium Ferritin AST ALT Alkaline Phosphatase Total Protein Albumin Arterial Blood Ionized Calcium Ur Specific [place] Salicylates Acetaminophen 07/25/21 07/25/21 07/25/21 05:24 11:36 17:35 WBC RBC Hgb Hct MCV MCH MCHC Baso # (Auto) Seg Neutrophils % Seg Neuts % (Manual) Seg Neutrophils # Man PT INR ABG pH POC ABG pO2 ABG HCO3 ABG Base Excess ABG Hemoglobin ABG Oxyhemoglobin ABG Potassium ABG Chloride VBG pH Carboxyhemoglobin Sodium Potassium Chloride Carbon Dioxide Creatinine Glucose POC Glucose 117 H 134 H 146 H Hemoglobin A1c Lactic Acid Calcium Phosphorus Magnesium Ferritin AST ALT Alkaline Phosphatase Total Protein Albumin Arterial Blood Ionized Calcium Ur Specific [place] Salicylates Acetaminophen 07/25/21 07/26/21 07/26/21 21:16 04:35 07:13 WBC RBC Hgb Hct MCV MCH MCHC Baso # (Auto) Seg Neutrophils % Seg Neuts % (Manual) Seg Neutrophils # Man PT INR ABG pH POC ABG pO2 ABG HCO3 ABG Base Excess ABG Hemoglobin ABG Oxyhemoglobin ABG Potassium ABG Chloride VBG pH Carboxyhemoglobin Sodium Potassium Chloride Carbon Dioxide Creatinine Glucose 145 H POC Glucose 116 H 139 H Hemoglobin A1c Lactic Acid Calcium Phosphorus Magnesium Ferritin AST 64 H ALT Alkaline Phosphatase 136 H Total Protein 8.3 H D Albumin 3.4 L Arterial Blood Ionized Calcium Ur Specific [place] Salicylates Acetaminophen 07/26/21 07/26/21 07/26/21 11:06 15:32 21:41 WBC RBC Hgb Hct MCV MCH MCHC Baso # (Auto) Seg Neutrophils % Seg Neuts % (Manual) Seg Neutrophils # Man PT INR ABG pH POC ABG pO2 ABG HCO3 ABG Base Excess ABG Hemoglobin ABG Oxyhemoglobin ABG Potassium ABG Chloride VBG pH Carboxyhemoglobin Sodium Potassium Chloride Carbon Dioxide Creatinine Glucose POC Glucose 157 H 209 H 138 H Hemoglobin A1c Lactic Acid Calcium Phosphorus Magnesium Ferritin AST ALT Alkaline Phosphatase Total Protein Albumin Arterial Blood Ionized Calcium Ur Specific [place] Salicylates Acetaminophen 07/27/21 07/27/21 07/27/21 07:00 07:00 07:29 WBC RBC 3.60 L Hgb Hct MCV 103 H MCH 33 H MCHC Baso # (Auto) Seg Neutrophils % Seg Neuts % (Manual) Seg Neutrophils # Man PT INR ABG pH POC ABG pO2 ABG HCO3 ABG Base Excess ABG Hemoglobin ABG Oxyhemoglobin ABG Potassium ABG Chloride VBG pH Carboxyhemoglobin Sodium Potassium Chloride Carbon Dioxide 19 L Creatinine Glucose 142 H POC Glucose 139 H Hemoglobin A1c Lactic Acid Calcium Phosphorus Magnesium Ferritin AST ALT Alkaline Phosphatase Total Protein Albumin Arterial Blood Ionized Calcium Ur Specific [place] Salicylates Acetaminophen Allied health notes reviewed: nursing
--- NOTE | 2021-07-27 12:04 | Discharge Summary ---
Providers - Providers Date of Admission: 07/22/21 21:20 Date of discharge: 07/27/21 Attending physician: ROSELINE OLIVEROS MD 07/22/21 20:12 Consult to Physician [CONS] Routine Comment: Consulting Provider: GRAHAM MORIN Physician Instructions: Reason For Exam: dka resp failure 07/22/21 20:13 Consult to Physician [CONS] Urgent Comment: Consulting Provider: EMILY SPEARS Physician Instructions: Reason For Exam: Metabolic acidosis, renal insufficiency, contrast 07/22/21 21:57 Consult to Physician [CONS] Routine Comment: Consulting Provider: JESSENIA PRESTON Physician Instructions: Reason For Exam: seizures 07/22/21 22:16 Consult to Physician [CONS] Routine Comment: Consulting Provider: ROSEMARY BARTON Physician Instructions: Reason For Exam: Elevated Liver enzymes Primary care physician: [employer]ER Hospitalization Reason for admission: seziure Condition: Critical Hospital course: HPI This is a 46-year-old male with seizures, EtOH and marijuana abuse presented to emergency department on 07/22 via EMS for evaluation of multiple seizures with the least one witnessed seizure. Patient had SVT with EMS which was terminated with 6 mg of adenosine, Accu-Cheks in the field was said to be "high". Upon arrival to the emergency department patient was tachycardic and hypertensive with copious secretions in his oral cavity and was subsequently intubated in the emergency department. Work-up in the emergency department revealed leukocyto sis, hyperkalemia, metabolic acidosis, elevated blood glucose of 941, transaminitis, elevated BUN/creatinine and anion gap. CXR, CT head and CTA head/neck were negative. Patient was admitted to the hospitalist service with consults to neurology, CCM, nephrology and GI. Hospital Course 07/23/21- Patient remains intubated and sedate, RASS -4. Remains on DKA protocol, plan to transition to SubQ insulin once gap is closed. Renal function is improving and electrolytes were repleted. Will continue cont. IVF and monitor and replaced eletrolytes as needed. Serial BMP, phosp, and mag ordered. 07/24: Patient was extubated today. Awaiting ST evaluation. Insulin drip discontinued today and given one-time dose of long-acting insulin and place on SSI. Will start long-acting insulin scheduled once p.o. intake evaluated. 07/25: Patient passed bedside swallow eval today, and EEG was completed today. MRI brain completed. Patient will be transferred to the floor today. Neurology recommends follow-up with outpatient neurology. 07/26: no acute events overnight, transferred to floor 07/27: No overnight events. Patient is resting comfortably, no signs and symptom of withdrawl. Blood sugars well controlled. Tracheal aspirate culture grew K. pneumonia sensitive to rocephin which he recieved for 4 days while in ICU. he has no fevers, all vitals signs are normal and he is not requiring supplemental oxygen. He will be discharged on Insulin 70/30 7 units bid and metformin 500 mg po bid for diabetic control. He will also be discharged home on Keppra 500 mg po bid for seizure prevention. He will be discharge to home and was advised not to operate a motor vehicle until cleared by his doctor. Patient was advised to avoid using alcohol. He was also advised to check his blood sugars regularly. He was advised to establish with a primary care physician as soon as possible to manage his chronic medical conditions. Assessment and Plan Neuro: Acute metabolic encephalopathy, seizure disorder, EtOH abuse -CT head with no acute intracranial abnormalities -EEG pending -Neurology consult, appreciate recommendations -Continue Keppra -[facility] protocol -Maintain sleep-wake cycle -Avoid delirium -MRI brain shows not acute findings -Seizure/aspiration precautions Cardio: s/p SVT (resolved) -Patient had SVT on route with EMS which was terminated with adenosine -Blood pressure monitoring per protocol Respiratory: Acute hypoxic respiratory failure -Patient was intubated on 07/22- 07/24 -Currently on RA to nasal cannula -SPO2 monitoring -Pulmonary hygiene GI: Transaminitis (resolving) -GI consulted, appreciate recommendations -Signed off today -Transaminitis likely secondary to EtOH abuse, acute ischemic injury and malnutrition -Avoid hypotension/epigastric medications per GI -06/2011 ultrasound completed which showed findings suggestive of hepatic steatosis, unremarkable UA system, pancreas and distal aorta obscured; limited exam due to bowel gas -PPI -BR: Senokot -24-hour -3070 mL : Acute kidney injury likely secondary to vasomotor nephropathy -Nephrology consulted, appreciate recommendations -Received renal contrast on 07/22 -S/p MIVF -Trend BMP -Per nephrology: Likely baseline CKD -Avoid nephrotoxic medications -Renally dose medications -Renal ultrasound pending -Encourage p.o. intake Endo: DKA (resolved) -S/p insulin drip -CC diet -Avoid hypoglycemia -Long-acting insulin, titrate as needed -Accu-Cheks every before meals at bedtime -SSI -Hemoglobin A1c 9.6 ID: SIRS -Presented with leukocytosis and acute hypoxic respiratory failure -Follow culture data -Follow-up blood cultures -Empiric antibiotics x1 in the ED Heme: Leukocytosis (resolved) -SCDs to bilateral proximal in bed -trend CBC -Transfuse hemoglobin less than 7 -Lovenox subcu Disposition: HOME / SELF CARE / HOMELESS Final Discharge Diagnosis (Prints w/discharge instructions): seizure Time spent for discharge: 35 Core Measure Documentation - Palliative Care Palliative Care/ Comfort Measures: Not Applicable - Core Measures Any of the following diagnoses?: none Exam - Physical Exam Narrative exam: General appearance: Present: no acute distress, well-nourished, other - EENT Eyes: Present: PERRL, EOM intact ENT: hearing intact, clear oral mucosa, dentition normal - Neck Neck: Present: normal ROM - Respiratory Respiratory effort: normal Respiratory: bilateral: CTA - Cardiovascular Rhythm: regular Heart Sounds: Present: S1 & S2. Absent: systolic murmur, diastolic murmur - Extremities Extremities: no ischemia, pulses intact, pulses symmetrical, No edema, normal temperature, normal color, Full ROM Peripheral Pulses: within normal limits - Abdominal General gastrointestinal: soft, non-tender, non-distended, normal bowel sounds - Integumentary Integumentary: Present: warm, dry - Psychiatric Psychiatric: cooperative - Neurologic Neurologic: CNII-XII intact, no focal deficits, moves all extremities - Allied Health Allied health notes reviewed: nursing, RT, social work - Constitutional Vitals: Temp Pulse Resp BP Pulse Ox 97.9 F 106 H 18 157/108 95 07/27/21 04:40 07/27/21 04:40 07/27/21 04:40 07/27/21 04:40 07/27/21 08:00 Plan Follow up with: PRIMARY CARE, [Primary Care Provider] - 3-5 Days Prescriptions: metFORMIN [Glucophage] 500 mg PO BID 30 Days #60 tablet levETIRAcetam [Keppra TAB] 500 mg PO BID 30 Days #60 tablet Insulin NPH/Regular [NovoLIN 70/30] 7 unit SUB-Q BID 30 Days #2 vial
[2021-07-27 14:08] VITALS: BP 131/88
== END 2021-07-27 16:30 | disposition home or self-care (01) | DRG 208 ==
LOC: ED 18:29 → CC1 21:20 → 3A 07-26 11:58
PROVIDERS: ADMIT Internal Medicine Geriatric Medicine; ATTEND Internal Medicine
PROC: 5A1945Z Respiratory Ventilation, 24-96 Consecutive Hours (ICD-10-PCS; principal; 2021-07-22)
PROC: 0BH17EZ Insertion of Endotracheal Airway into Trachea, Via Natural or Artificial Opening (ICD-10-PCS; 2021-07-22)
PROC: 4A033R1 Measurement of Arterial Saturation, Peripheral, Percutaneous Approach (ICD-10-PCS; 2021-07-22)
DX: J96.01 Acute respiratory failure with hypoxia (principal); G93.41 Metabolic encephalopathy; N17.0 Acute kidney failure with tubular necrosis; E11.10 Type 2 diabetes mellitus with ketoacidosis without coma; R65.10 Systemic inflammatory response syndrome (SIRS) of non-infectious origin without acute organ dysfunction; I47.1 Supraventricular tachycardia; E87.0 Hyperosmolality and hypernatremia; G40.909 Epilepsy, unspecified, not intractable, without status epilepticus; F10.10 Alcohol abuse, uncomplicated; K70.10 Alcoholic hepatitis without ascites; E83.39 Other disorders of phosphorus metabolism; E87.6 Hypokalemia; E78.00 Pure hypercholesterolemia, unspecified
CPT/HCPCS: 36415; 36600; 70450; 70496; 70498; 70553; 71045; 74018; 76705; 80048; 80053; 80307; 80320; 81001; 82140; 82550; 82553; 82728; 82803; 82805; 82962; 83036; 83735; 84100; 84443; 84484; 85007; 85025; 85027; 85610; 85670; 85730; 87040; 87070; 87076; 87186; 87205; 93005; 94002; 94003; 94760; G0378; J3480; J3490; J7060; J7121; J7510; Q0162; Q0177; Q9967; A9575; G0480; J0360; J0696; J1644; J1815; J1953; J2060; J2270; J2704; J3010; J3411; J3475; J7030; J7040; J7120